=== PATIENT | female | born 1935 | race Caucasian/White ===

== ENCOUNTER 2019-12-10 11:40 | Inpatient (IN) | payer MEDICARE, OTHER ==
--- NOTE | 2019-12-10 12:24 | EDM.PDOC ---
ED HPI GENERAL MEDICAL PROBLEM - General Chief Complaint: Respiratory Problem Stated Complaint: SOB Time Seen by Provider: 12/10/19 12:06 Source of Information: Reports: Patient, RN Notes Reviewed History Limitations: Reports: No Limitations - History of Present Illness INITIAL COMMENTS - FREE TEXT/NARRATIVE: Patient is an 84-year-old female who presents to the ED for evaluation of her shortness of breath. At the time of initial triage, she was found to have O2 sats of 76% on 4 L of oxygen. She does wear oxygen at home, normally at 4 L. Triage nurse noted that her nailbeds were blue and, and she was having some slight dyspnea. She was then changed to a simple mask, and her O2 sats have been roughly 98 to 100% on 7 L, is been titrated down to 6 L on simple mask at this time and they are still in the mid to high 90s. Patient notes that this has been going on for the last 2 or 3 days, she thought maybe the change in humidity was the culprit. She states that she does have a history of pulmonary fibrosis. She does see a concrete rubber in [place]. She is also had recent stent placement, in September, and is to have a follow-up with her government affairs specialist sometime in December. Patient states that she has not been around anyone that is been sick or known to be sick. States that she has been trying to stay home, and not go out. Patient's not sure if she has ever been checked for COVID 19, she states that she has not had any fevers or chills, she has had no lingering cough that is worse than her normal. She is not having any chest pain. 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 (see below) Other Treatments CHIEF ORTHOPTIST: wears oxygen - Related Data Allergies Allergy/AdvReac Type Severity Reaction Status Date / Time No Known Allergies Allergy Verified 06/25/15 15:58 Home Meds: Home Meds Aspirin [Aspirin EC] 81 mg PO DAILY 12/10/19 [History] Calcium Carbonate [Calcium] 600 mg PO DAILY 12/10/19 [History] Clopidogrel Bisulfate [Plavix] 75 mg PO DAILY 12/10/19 [History] Hydrochloric Acid 25 mg PO DAILY 12/10/19 [History] Metoprolol Tartrate 25 mg PO BID 12/10/19 [History] atorvaSTATin Calcium [Lipitor] 20 mg PO BEDTIME 12/10/19 [History] Past Medical History HEENT History: Reports: Hard of Hearing, Impaired Vision, Other (See Below) Other HEENT History: Bilateral hearing aids Cardiovascular History: Reports: Hypertension, Stents Respiratory History: Reports: Pulmonary Fibrosis (on chronic supplemental home O2) 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: - Infectious Disease History Infectious Disease History: Reports: Chicken Pox, Measles, Mumps - Past Surgical History Cardiovascular Surgical History: Reports: Other (See Below) (stents placed in September) Musculoskeletal Surgical History: Reports: Knee Replacement Other Musculoskeletal Surgeries/Procedures:: bilat Social & Family History - Tobacco Use Smoking Status *Q: Never Smoker - Caffeine Use Caffeine Use: Reports: Coffee, Soda, Tea - Recreational Drug Use Recreational Drug Use: No ED ROS GENERAL - Review of Systems Review Of Systems: Comprehensive ROS is negative, except as noted in HPI. ED EXAM, GENERAL - Physical Exam Exam: See Below Exam Limited By: No Limitations General Appearance: Alert, WD/WN, No Apparent Distress (pt is extremely hard of hearing, even with hearing aides) Eye Exam: Bilateral Eye: EOMI, Normal Inspection Ears: Normal External Exam Nose: Normal Inspection Throat/Mouth: Normal Inspection, Normal Lips, Normal Teeth, Normal Gums, Normal Oropharynx, Normal Voice, No Airway Compromise Head: Atraumatic, Normocephalic Neck: Normal Inspection Respiratory/Chest: No Respiratory Distress, Chest Non-Tender, Decreased Breath Sounds (right lung field), Crackles (mostly on right) Cardiovascular: Normal Peripheral Pulses, Regular Rate, Rhythm, No Edema, No Murmur Peripheral Pulses: 2+: Radial (L), Radial (R) Extremities: Normal Inspection, Normal Capillary Refill Neurological: Alert, Oriented, Normal Cognition, No Motor/Sensory Deficits Psychiatric: Normal Affect, Normal Mood Skin Exam: Warm, Dry, Intact, Normal Color, No Rash Course - Vital Signs Last Recorded V/S: Last Vital Signs Temp 97.2 F 12/10/19 12:03 Pulse 72 12/10/19 12:03 Resp 25 H 12/10/19 12:03 BP 141/61 H 12/10/19 12:03 Pulse Ox 76 L 12/10/19 12:03 - Orders/Labs/Meds Orders: Active Orders 24 hr Category Date Time Status EKG Documentation Completion [RC] STAT Care 12/10/19 12:22 Active Peripheral IV Care [RC] . DIRECTED Care 12/10/19 13:10 Ordered Ang Chest [CT] Stat Exams 12/10/19 15:40 Ordered OSMOLALITY,SERUM [CHEM] Stat Lab 12/10/19 15:41 Ordered OSMOLALITY,URINE [URCHEM] Stat Lab 12/10/19 15:41 Ordered PROCALCITONIN [REF] Stat Lab 12/10/19 15:42 Ordered SODIUM,URINE RANDOM [URCHEM] Stat Lab 12/10/19 15:41 Ordered Sodium Chloride 0.9% [Saline Flush] Med 12/10/19 13:09 Ordered 10 ml FLUSH ASDIRECTED PRN Peripheral IV Insertion Adult [OM.PC] Routine Oth 12/10/19 13:09 Ordered Medication Orders Sodium Chloride (Saline Flush) 10 ml FLUSH ASDIRECTED PRN PRN Reason: Keep Vein Open Last Admin: 12/10/19 14:47 Dose: 10 ml Documented by: KIRA Labs: Laboratory Tests 12/10/19 12/10/19 12/10/19 Range/Units 12:18 12:18 12:18 WBC 10.04 (3.98-10.04) K/mm3 RBC 4.52 (3.98-5.22) M/mm3 Hgb 13.0 (11.2-15.7) gm/dl Hct 40.3 (34.1-44.9) % MCV 89.2 (79.4-94.8) fl MCH 28.8 (25.6-32.2) pg MCHC 32.3 (32.2-35.5) g/dl RDW Std Deviation 46.2 (36.4-46.3) fL Plt Count 319 D (182-369) K/mm3 MPV 9.3 L (9.4-12.3) fl Neut % (Auto) 75.3 H (34.0-71.1) % Lymph % (Auto) 11.1 L (19.3-51.7) % [place] % (Auto) 11.7 (4.7-12.5) % Eos % (Auto) 1.5 (0.7-5.8) Baso % (Auto) 0.2 (0.1-1.2) % Neut # (Auto) 7.57 H (1.56-6.13) K/mm3 Lymph # (Auto) 1.11 L (1.18-3.74) K/mm3 [place] # (Auto) 1.17 H (0.24-0.36) K/mm3 Eos # (Auto) 0.15 (0.04-0.36) K/mm3 Baso # (Auto) 0.02 (0.01-0.08) K/mm3 D-Dimer, Quantitative (0.19-0.50) mg/L Puncture Site ABG pH (7.35-7.45) ABG pCO2 (35.0-45.0) mmHg ABG pO2 (80.0-100.0) mmHg ABG HCO3 (22.0-26.0) meq/L ABG O2 Saturation (96.0-97.0) % ABG Base Excess (-2-2.0) Zur[place] Test A-a Gradient mmHg O2 Delivery Device Oxygen Flow Rate FiO2 (21.00-100.00) % Sodium 127 L D (136-145) mEq/L Potassium 3.6 (3.5-5.1) mEq/L Chloride 91 L (98-107) mEq/L Carbon Dioxide 32 (21-32) mEq/L Anion Gap 7.6 (5-15) BUN 15 (7-18) mg/dL Creatinine 0.9 (0.55-1.02) mg/dL Est Cr Clr Drug Dosing 38.49 mL/min Estimated GFR (MDRD) 60 (>60) mL/min BUN/Creatinine Ratio 16.7 (14-18) Glucose 140 H (83-115) mg/dL Calcium 8.9 (8.5-10.1) mg/dL Ferritin 505 H (8-252) ng/ml Total Bilirubin 0.8 (0.2-1.0) mg/dL AST 22 (15-37) U/L ALT 20 (14-59) U/L Alkaline Phosphatase 92 (46-116) U/L Lactate Dehydrogenase 338 H (81-234) U/L Troponin I (0.00-0.056) ng/mL C-Reactive Protein 6.2 H* (<1.0) mg/dL NT-Pro-B Natriuret Pep (0-450) pg/mL Total Protein 7.3 (6.4-8.2) g/dl Albumin 3.1 L (3.4-5.0) g/dl Globulin 4.2 gm/dL Albumin/Globulin Ratio 0.7 L (1-2) SARS Virus RNA (PCR) (NEGATIVE) 12/10/19 12/10/19 12/10/19 Range/Units 12:18 12:18 12:18 WBC (3.98-10.04) K/mm3 RBC (3.98-5.22) M/mm3 Hgb (11.2-15.7) gm/dl Hct (34.1-44.9) % MCV (79.4-94.8) fl MCH (25.6-32.2) pg MCHC (32.2-35.5) g/dl RDW Std Deviation (36.4-46.3) fL Plt Count (182-369) K/mm3 MPV (9.4-12.3) fl Neut % (Auto) (34.0-71.1) % Lymph % (Auto) (19.3-51.7) % [place] % (Auto) (4.7-12.5) % Eos % (Auto) (0.7-5.8) Baso % (Auto) (0.1-1.2) % Neut # (Auto) (1.56-6.13) K/mm3 Lymph # (Auto) (1.18-3.74) K/mm3 [place] # (Auto) (0.24-0.36) K/mm3 Eos # (Auto) (0.04-0.36) K/mm3 Baso # (Auto) (0.01-0.08) K/mm3 D-Dimer, Quantitative 0.49 (0.19-0.50) mg/L Puncture Site ABG pH (7.35-7.45) ABG pCO2 (35.0-45.0) mmHg ABG pO2 (80.0-100.0) mmHg ABG HCO3 (22.0-26.0) meq/L ABG O2 Saturation (96.0-97.0) % ABG Base Excess (-2-2.0) Zurdo Test A-a Gradient mmHg O2 Delivery Device Oxygen Flow Rate FiO2 (21.00-100.00) % Sodium (136-145) mEq/L Potassium (3.5-5.1) mEq/L Chloride (98-107) mEq/L Carbon Dioxide (21-32) mEq/L Anion Gap (5-15) BUN (7-18) mg/dL Creatinine (0.55-1.02) mg/dL Est Cr Clr Drug Dosing mL/min Estimated GFR (MDRD) (>60) mL/min BUN/Creatinine Ratio (14-18) Glucose (83-115) mg/dL Calcium (8.5-10.1) mg/dL Ferritin (8-252) ng/ml Total Bilirubin (0.2-1.0) mg/dL AST (15-37) U/L ALT (14-59) U/L Alkaline Phosphatase (46-116) U/L Lactate Dehydrogenase (81-234) U/L Troponin I 0.023 (0.00-0.056) ng/mL C-Reactive Protein (<1.0) mg/dL NT-Pro-B Natriuret Pep 3684 H (0-450) pg/mL Total Protein (6.4-8.2) g/dl Albumin (3.4-5.0) g/dl Globulin gm/dL Albumin/Globulin Ratio (1-2) SARS Virus RNA (PCR) (NEGATIVE) 12/10/19 12/10/19 Range/Units 12:25 13:30 WBC (3.98-10.04) K/mm3 RBC (3.98-5.22) M/mm3 Hgb (11.2-15.7) gm/dl Hct (34.1-44.9) % MCV (79.4-94.8) fl MCH (25.6-32.2) pg MCHC (32.2-35.5) g/dl RDW Std Deviation (36.4-46.3) fL Plt Count (182-369) K/mm3 MPV (9.4-12.3) fl Neut % (Auto) (34.0-71.1) % Lymph % (Auto) (19.3-51.7) % [place] % (Auto) (4.7-12.5) % Eos % (Auto) (0.7-5.8) Baso % (Auto) (0.1-1.2) % Neut # (Auto) (1.56-6.13) K/mm3 Lymph # (Auto) (1.18-3.74) K/mm3 [place] # (Auto) (0.24-0.36) K/mm3 Eos # (Auto) (0.04-0.36) K/mm3 Baso # (Auto) (0.01-0.08) K/mm3 D-Dimer, Quantitative (0.19-0.50) mg/L Puncture Site Rt radial ABG pH 7.44 (7.35-7.45) ABG pCO2 44.3 (35.0-45.0) mmHg ABG pO2 88.0 (80.0-100.0) mmHg ABG HCO3 29.4 H (22.0-26.0) meq/L ABG O2 Saturation 96.5 (96.0-97.0) % ABG Base Excess 4.9 H (-2-2.0) Zurdo Test Positive A-a Gradient 170 mmHg O2 Delivery Device Simple mask Oxygen Flow Rate 6.0 FiO2 44.00 (21.00-100.00) % Sodium (136-145) mEq/L Potassium (3.5-5.1) mEq/L Chloride (98-107) mEq/L Carbon Dioxide (21-32) mEq/L Anion Gap (5-15) BUN (7-18) mg/dL Creatinine (0.55-1.02) mg/dL Est Cr Clr Drug Dosing mL/min Estimated GFR (MDRD) (>60) mL/min BUN/Creatinine Ratio (14-18) Glucose (83-115) mg/dL Calcium (8.5-10.1) mg/dL Ferritin (8-252) ng/ml Total Bilirubin (0.2-1.0) mg/dL AST (15-37) U/L ALT (14-59) U/L Alkaline Phosphatase (46-116) U/L Lactate Dehydrogenase (81-234) U/L Troponin I (0.00-0.056) ng/mL C-Reactive Protein (<1.0) mg/dL NT-Pro-B Natriuret Pep (0-450) pg/mL Total Protein (6.4-8.2) g/dl Albumin (3.4-5.0) g/dl Globulin gm/dL Albumin/Globulin Ratio (1-2) SARS Virus RNA (PCR) Negative (NEGATIVE) Meds: Medications Generic Name Dose Route Start Last Admin Trade Name Khanh PRN Reason Stop Dose Admin Sodium Chloride 10 ml 12/10/19 13:09 12/10/19 14:47 Saline Flush FLUSH 10 ml ASDIRECTED PRN Administration Keep Vein Open - Re-Assessments/Exams Free Text/Narrative Re-Assessment/Exam: 12/10/19 12:26 Patient is an 84-year-old female who presents to the ED for her shortness of breath, and hypoxemia. She does chronically wear oxygen at home, and was found to have O2 sats of 76% on her 4 L of oxygen She was titrated to a simple mask, and she is at 6 L at this time, and satting around 98%. 12/10/19 13:08 Was made aware by nursing staff, that they ambulated the patient to the bathroom, and she had a severe drop in her O2 sats again. They noted to be low 80s high 70s. Patient does seem to recover well. Chest x-ray is suggestive of CHF with pulmonary edema, her labs demonstrate a low sodium of 127, ferritin of 505 which is elevated, elevated LDH at 338, patient's troponin is also detectable at 0.023, but within normal limits, CRP is elevated at 6.2. Still awaiting other labs. 12/10/19 13:34 Patient's coronavirus test was negative. D-dimer is on the high side of normal at 0.49, upper limits is 0.50. Her BNP is elevated at 3684, which would be suggestive of the CHF exacerbation. Patient does take hydrochlorothiazide 20 mg daily, metoprolol tartrate 25 mg twice daily, aspirin 81 mg daily, Plavix 75 mg daily, and atorvastatin 20 mg at bedtime. I will try to get her admitted for a CHF exacerbation at this time. Departure - Departure Time of Disposition: 15:44 Disposition: Admitted As Inpatient 66 Condition: Good Clinical Impression: Hypoxia Congestive heart failure Qualifiers: Heart failure type: unspecified Heart failure chronicity: acute on chronic Qualified Code(s): I50.9 - Heart failure, unspecified - Discharge Information *PRESCRIPTION DRUG MONITORING PROGRAM REVIEWED*: No *COPY OF PRESCRIPTION DRUG MONITORING REPORT IN PATIENT ANIL: No Referrals: Garth Vargas MD [Primary Care Provider] - Forms: ED Department Discharge Sepsis Event Note (ED) - Evaluation Sepsis Screening Result: No Definite Risk - Focused Exam Vital Signs: Vital Signs Temp Pulse Resp BP Pulse Ox 12/10/19 12:03 97.2 F 72 25 H 141/61 H 76 L - My Orders Last 24 Hours: My Active Orders 12/10/19 12:22 EKG Documentation Completion [RC] STAT 12/10/19 13:09 Sodium Chloride 0.9% [Saline Flush] 10 ml FLUSH ASDIRECTED PRN Peripheral IV Insertion Adult [OM.PC] Routine 12/10/19 13:10 Peripheral IV Care [RC] . DIRECTED 12/10/19 15:40 Ang Chest [CT] Stat 12/10/19 15:41 OSMOLALITY,SERUM [CHEM] Stat OSMOLALITY,URINE [URCHEM] Stat SODIUM,URINE RANDOM [URCHEM] Stat 12/10/19 15:42 PROCALCITONIN [REF] Stat - Assessment/Plan Last 24 Hours: My Active Orders 12/10/19 12:22 EKG Documentation Completion [RC] STAT 12/10/19 13:09 Sodium Chloride 0.9% [Saline Flush] 10 ml FLUSH ASDIRECTED PRN Peripheral IV Insertion Adult [OM.PC] Routine 12/10/19 13:10 Peripheral IV Care [RC] . DIRECTED 12/10/19 15:40 Ang Chest [CT] Stat 12/10/19 15:41 OSMOLALITY,SERUM [CHEM] Stat OSMOLALITY,URINE [URCHEM] Stat SODIUM,URINE RANDOM [URCHEM] Stat 12/10/19 15:42 PROCALCITONIN [REF] Stat
--- NOTE | 2019-12-10 12:48 | CR ---
Chest: Portable view of the chest was obtained. Comparison: Prior chest x-ray on 06/25/15. Diffuse increased density is seen on both sides of the chest. Findings raise the possibility of pulmonary edema. Heart is somewhat enlarged. Tortuous thoracic aorta is noted. Scoliosis and degenerative change is noted within the spine. Impression: 1. Findings suspicious for CHF with pulmonary edema. Please correlate if this matches patient's clinical symptoms/findings. Diagnostic code #3 This report was dictated in MDT
[2019-12-10] MEDS: Sodium Chloride 0.9% 10 ML Syringe FLUSH PRN (14:47)
[2019-12-10] MEDS ORDERED: Iopamidol 755 Mg/ML 100 ML Bottle IVPUSH ONE (15:49)
[2019-12-10] MEDS ORDERED: Sodium Chloride 0.9% 10 ML Syringe FLUSH ONE (15:49)
[2019-12-10] MEDS ORDERED: Sodium Chloride 0.9% 100 ML IV SCH (16:00)
--- NOTE | 2019-12-10 16:40 | CT ---
CT chest Technique: Multiple axial sections through the chest were obtained. Intravenous contrast was utilized. Study performed as a pulmonary angiogram protocol. Findings: Pulmonary arteries are well opacified. No filling defects are seen to indicate pulmonary embolism. Aorta shows atherosclerotic calcification without aneurysm. No dissection is seen. Multiple lymph nodes are seen within the mediastinum which are more than usually seen. No pericardial thickening is seen. Visualized upper abdominal structures shows no discrete abnormality. Diffuse interstitial change is seen having the appearance of diffuse fibrosis. Emphysematous changes are also noted. Impression: 1. Diffuse appearing interstitial change with emphysematous change. Uncertain if the interstitial change represent diffuse fibrosis or represent asymmetric pulmonary vascular congestion from CHF superimposed upon emphysematous change. 2. Lymph nodes within the mediastinum possibly due to previous inflammatory process. 3. No findings of pulmonary embolism. Diagnostic code #3 This report was dictated in MDT
[2019-12-10] MEDS ORDERED: Ondansetron 4 MG/2 ML SDV IV PRN (18:18)
[2019-12-10] MEDS ORDERED: Furosemide 20 MG/2 ML VIAL IVPUSH ONE (18:22)
--- NOTE | 2019-12-10 18:28 | PCM.HP.2 ---
H&P History of Present Illness - General Date of Service: 12/10/19 Admit Problem/Dx: Admission Diagnosis/Problem Admission Diagnosis/Problem Congestive heart failure - History of Present Illness Initial Comments - Free Text/Narative: This is an 84 year old female with past medical history of pulmonary fibrosis an d chronic hypoxemic respiratory failure who comes to the ED complaining of worsening shortness of breath for a couple of days. As per patient she has been on oxygen for over a year, normally at home her pulse ox ranges from 74 -94% and she normally is on 4LPM NC, this was changed 2.5 weeks, before on 2.5L. Once she noticed her symptoms were not improving and her legs were getting more and more swollen for which she came in for evaluation. - Related Data Allergies/Adverse Reactions: Allergies Allergy/AdvReac Type Severity Reaction Status Date / Time No Known Allergies Allergy Verified 06/25/15 15:58 Home Medications: Home Meds Aspirin [Aspirin EC] 81 mg PO DAILY 12/10/19 [History] Calcium Carbonate [Calcium] 600 mg PO DAILY 12/10/19 [History] Clopidogrel Bisulfate [Plavix] 75 mg PO DAILY 12/10/19 [History] Metoprolol Tartrate 12.5 mg PO BID 12/10/19 [History] Multivitamin [Multivitamins] 1 tab PO DAILY 12/10/19 [History] atorvaSTATin Calcium [Lipitor] 20 mg PO BEDTIME 12/10/19 [History] hydroCHLOROthiazide [Hydrochlorothiazide] 25 mg PO DAILY 12/10/19 [History] Past Medical History HEENT History: Reports: Hard of Hearing, Impaired Vision, Other (See Below) Other HEENT History: Bilateral hearing aids Cardiovascular History: Reports: Hypertension, Stents Respiratory History: Reports: Pulmonary Fibrosis Genitourinary History: Reports: UTI, 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: - Infectious Disease History Infectious Disease History: Reports: Chicken Pox, Measles, Mumps - Past Surgical History HEENT Surgical History: Reports: None Cardiovascular Surgical History: Reports: Carotid Stents Other Cardiovascular Surgeries/Procedures: 2 stents Female Surgical History: Reports: None Musculoskeletal Surgical History: Reports: Knee Replacement Other Musculoskeletal Surgeries/Procedures:: bilat Social & Family History - Tobacco Use Smoking Status *Q: Never Smoker - Caffeine Use Caffeine Use: Reports: Coffee, Soda - Recreational Drug Use Recreational Drug Use: No H&P Review of Systems - Review of Systems: Review Of Systems: See Below General: Reports: Fatigue. Denies: Fever, Chills, Malaise, Weakness, Night Sweats, Diaphoresis, Decreased Appetite HEENT: Denies: Headaches, Rhinitis, Post Nasal Drip, Sinus Congestion, Sore Throat, Vertigo, Visual Changes Pulmonary: Reports: Shortness of Breath. Denies: Wheezing, Pleuritic Chest Pain, Cough, Sputum, Hemoptysis Cardiovascular: Reports: Dyspnea on Exertion, Edema. Denies: Chest Pain, Palpitations, Orthopnea, PND, Lightheadedness, Syncope, Claudication, Blood Pressure Problem Gastrointestinal: Denies: Abdominal Pain, Anorexia, Black Stool, Bloody Stool, Constipation, Diarrhea, Decreased Appetite, Difficulty Swallowing, Distension, Flatus, Nausea, Vomiting Genitourinary: Denies: Dysuria, Frequency, Burning, Pain, Urgency Musculoskeletal: Denies: Joint Pain, Joint Swelling, Muscle Pain, Muscle Stiffness Psychiatric: Denies: Confusion, Depression, Mood Lability, Anxiety Neurological: Denies: Dizziness, Headache, Numbness, Paresthesia Exam - Exam Exam: See Below - Vital Signs Vital Signs: Last Vital Signs Temp 97.2 F 12/10/19 12:03 Pulse 72 12/10/19 12:03 Resp 25 H 12/10/19 12:03 BP 141/61 H 12/10/19 12:03 Pulse Ox 76 L 12/10/19 12:03 Weight: 69.173 kg - Exam General: Alert, Oriented, Cooperative, Mild Distress HEENT: Conjunctiva Clear, EACs Clear, Mucosa Moist & [place], Pupils Equal, Pupils Reactive Neck: Supple, Trachea Midline, Full Range of Motion, JVD. No: Lymphadenopathy, Carotid Bruit Lungs: Clear to Auscultation, Decreased Breath Sounds, Crackles, Wheezing. No: Normal Respiratory Effort, Rales, Rhonchi, Rub, Stridor Cardiovascular: Regular Rate, Regular Rhythm. No: Systolic Murmur, Diastolic Murmur, Rubs, Gallop/S3, Gallop/S4 GI/Abdominal Exam: Normal Bowel Sounds, Soft, Non-Tender. No: Distended, Guarding, Rigid, Rebound Back Exam: Normal Inspection, Full Range of Motion. No: CVA Tenderness (L), CVA Tenderness (R) Extremities: Normal Inspection, Normal Range of Motion, Pedal Edema Peripheral Pulses: 2+: Radial (L), Radial (R), Dorsalis Pedis (L), Dorsalis Pedis (R) - Patient Data Result Diagrams: 12/13/19 05:51 12/13/19 05:51 Sepsis Event Note - Evaluation Sepsis Screening Result: No Definite Risk - Problem List (1) Idiopathic pulmonary fibrosis Status: Acute Current Visit: Yes (2) Acute on chronic respiratory failure with hypoxemia SNOMED Code(s): 52822041345389833 ICD Code: J96.21 - ACUTE AND CHRONIC RESPIRATORY FAILURE WITH HYPOXIA Status: Acute Current Visit: Yes (3) Hypertension SNOMED Code(s): 05367778 ICD Code: I10 - ESSENTIAL (PRIMARY) HYPERTENSION Status: Acute Current Visit: Yes (4) Coronary artery disease SNOMED Code(s): 83352870 ICD Code: I25.10 - ATHSCL HEART DISEASE OF [place] CORONARY ARTERY W/O ANG PCTRS Status: Acute Current Visit: Yes (5) Stented coronary artery Status: Acute Current Visit: Yes (6) Hyponatremia SNOMED Code(s): 66191159 ICD Code: E87.1 - HYPO-OSMOLALITY AND HYPONATREMIA Status: Acute Current Visit: Yes (7) Hypokalemia SNOMED Code(s): 54812238 ICD Code: E87.6 - HYPOKALEMIA Status: Acute Current Visit: Yes (8) Hypoalbuminemia SNOMED Code(s): 187831161 ICD Code: E88.09 - OTH DISORDERS OF PLASMA-PROTEIN METABOLISM, NEC Status: Acute Current Visit: Yes (9) Compensated metabolic alkalosis SNOMED Code(s): 2522705 ICD Code: E87.3 - ALKALOSIS Status: Acute Current Visit: Yes (10) Tachypnea SNOMED Code(s): 958526764 ICD Code: R06.82 - TACHYPNEA, NOT ELSEWHERE CLASSIFIED Status: Acute Current Visit: Yes (11) Heart failure, type unknown SNOMED Code(s): 34283438 ICD Code: I50.9 - HEART FAILURE, UNSPECIFIED Status: Acute Current Visit: Yes (12) Acute heart failure SNOMED Code(s): 26951444 ICD Code: I50.9 - HEART FAILURE, UNSPECIFIED Status: Acute Current Visit: Yes Problem List Initiated/Reviewed/Updated: Yes Assessment/Plan Comment:: ASSESSMENT Came in for worsening shortness of breath and lower extremity edema Chronic O2 dependence at 4 L, recently changed the past 3 weeks Pulse ox on admission 76%--> increased to 6L Labs on admission WBC 10.04, no bands Chemistry: Sodium 127, potassium 3.6, chloride 91, CO2 32, GFR 60 Ferritin 505, LDH 338, d-dimer 0.49, proBNP 3684 ABGs: 7.44/44.3/88/29.4/96.5 Chest x-ray with diffuse increased density on both sides of the chest with concerns for pulmonary edema, enlarged heart VS on admission: BP 141/61(87), HR 72, RR 25, SatO2 76% on 4LPM Home BP management with thiazide, likely causing hyponatremia PLAN Acute on chronic respiratory failure with hypoxemia, multifactorial Acute on chronic ischemic heart failure Coronary artery disease s/p stenting x 2 on 09/2019 Idiopathic pulmonary fibrosis Compensated metabolic alkalosis CTA chest to r/o pulmonary embolus Lasix IV now Daily weights Fluid restriction Hypertension Continue home medications once available PRN Hydralazine Hyponatremia Hypokalemia Hold thiazide Replace KCl Hypoalbuminemia Prealbumin Dietary consult PROPHYLAXIS DVT-Lovenox GI- not indicated CODE STATUS: DNR/DNI DISPOSITION: Patient will be admitted on O2 supplementation, diuresis and monitorization. SOCIAL: Comes from home, here in [place] with Independent at home PCP is Dr. Vargas - Mortality Measure Prognosis:: Poor
[2019-12-11] MEDS ORDERED: Furosemide 20 MG/2 ML VIAL IVPUSH ONE (09:09)
--- NOTE | 2019-12-11 21:24 | PCM.PN ---
- General Info Date of Service: 12/11/19 Subjective Update: Overnight developed worsening hypoxemia required O2 flow increase to 10LPM NC - Patient Data Vitals - Most Recent: Last Vital Signs Temp 98.3 F 12/11/19 20:00 Pulse 113 H 12/11/19 20:45 Resp 18 12/11/19 16:00 BP 109/68 12/11/19 20:45 Pulse Ox 95 12/11/19 20:45 Weight - Most Recent: 67.948 kg - Exam General: Alert, Oriented, Cooperative, Moderate Distress HEENT: Pupils Equal, Pupils Reactive, EOMI, Mucous Membr. Moist/[place] Neck: Supple, Trachea Midline, +2 Carotid Pulse wo Bruit, JVD Lungs: Normal Respiratory Effort, Decreased Breath Sounds, Crackles. No: Rales, Rhonchi, Rub, Stridor, Wheezing Cardiovascular: Regular Rate, Regular Rhythm. No: Murmurs, Gallops, Rubs GI/Abdominal Exam: Normal Bowel Sounds, Soft, Non-Tender. No: Distended, Guarding, Rigid, Rebound Back Exam: Normal Inspection. No: CVA Tenderness (L), CVA Tenderness (R) Extremities: Normal Inspection, Pedal Edema (interval improvement), Slow Capillary Refill Peripheral Pulses: 2+: Radial (L), Radial (R), Dorsalis Pedis (L), Dorsalis Pedis (R) Skin: Warm, Dry Neurological: No New Focal Deficit Psy/Mental Status: Normal Affect, Normal Mood Sepsis Event Note - Evaluation Sepsis Screening Result: No Definite Risk - Problem List & Annotations (1) Leukocytosis SNOMED Code(s): 056608170, 948962407 Code(s): D72.829 - ELEVATED WHITE BLOOD CELL COUNT, UNSPECIFIED Status: Acute Current Visit: Yes (2) Hypomagnesemia SNOMED Code(s): 832114826 Code(s): E83.42 - HYPOMAGNESEMIA Status: Acute Current Visit: Yes (3) Acute heart failure SNOMED Code(s): 76335684 Code(s): I50.9 - HEART FAILURE, UNSPECIFIED Status: Acute Current Visit: Yes (4) Acute on chronic respiratory failure with hypoxemia SNOMED Code(s): 87863774625985131 Code(s): J96.21 - ACUTE AND CHRONIC RESPIRATORY FAILURE WITH HYPOXIA Status: Acute Current Visit: Yes (5) Compensated metabolic alkalosis SNOMED Code(s): 4169137 Code(s): E87.3 - ALKALOSIS Status: Acute Current Visit: Yes (6) Coronary artery disease SNOMED Code(s): 88595712 Code(s): I25.10 - ATHSCL HEART DISEASE OF [place] CORONARY ARTERY W/O ANG PCTRS Status: Acute Current Visit: Yes (7) Heart failure, type unknown SNOMED Code(s): 03329541 Code(s): I50.9 - HEART FAILURE, UNSPECIFIED Status: Acute Current Visit: Yes (8) Hypertension SNOMED Code(s): 94619048 Code(s): I10 - ESSENTIAL (PRIMARY) HYPERTENSION Status: Acute Current Visit: Yes (9) Hypoalbuminemia SNOMED Code(s): 914124946 Code(s): E88.09 - OTH DISORDERS OF PLASMA-PROTEIN METABOLISM, NEC Status: Acute Current Visit: Yes (10) Hypokalemia SNOMED Code(s): 17367116 Code(s): E87.6 - HYPOKALEMIA Status: Acute Current Visit: Yes (11) Hyponatremia SNOMED Code(s): 57890181 Code(s): E87.1 - HYPO-OSMOLALITY AND HYPONATREMIA Status: Acute Current Visit: Yes (12) Idiopathic pulmonary fibrosis Status: Acute Current Visit: Yes (13) Stented coronary artery Status: Acute Current Visit: Yes (14) Tachypnea SNOMED Code(s): 856180932 Code(s): R06.82 - TACHYPNEA, NOT ELSEWHERE CLASSIFIED Status: Acute Cur rent Visit: Yes - Problem List Review Problem List Initiated/Reviewed/Updated: Yes - Assessment Assessment:: 12/11/19 Came in for worsening shortness of breath and lower extremity edema Chronic O2 dependence at 4 L, recently changed the past 3 weeks Pulse ox on admission 76%--> increased to 6L Labs on admission WBC 10.04, no bands Chemistry: Sodium 127, potassium 3.6, chloride 91, CO2 32, GFR 60 Ferritin 505, LDH 338, d-dimer 0.49, proBNP 3684 ABGs: 7.44/44.3/88/29.4/96.5 Chest x-ray with diffuse increased density on both sides of the chest with concerns for pulmonary edema, enlarged heart VS on admission: BP 141/61(87), HR 72, RR 25, SatO2 76% on 4LPM Home BP management with thiazide, likely causing hyponatremia PLAN CTA chest to r/o pulmonary embolus--> negative for PE Lasix IV now Daily weights Fluid restriction PRN Hydralazine Prealbumin Dietary consult Patient will be admitted on O2 supplementation, diuresis and monitorization. 12/11/19 Worsened respiratory status overnight: Started 4 L/min and dropped to 76% around 7 in the morning increased to 6 and later 10 L/min obtaining a pulse ox of 87% Vital signs MAP: 7590 T-max 97.8 Heart rate 91 210 Pulse ox greater than 76 Intake and output Urine output 1, 550 24-hour balance -1, 250 Lab results WBC up from 10.04-11.99 Platelets down from 219-299 Sodium up from 127 230 Potassium down from 3.6-3.3 Chloride stable at 91 Magnesium 1.7 - Plan Plan:: Acute on chronic respiratory failure with hypoxemia, multifactorial Acute on chronic ischemic heart failure Coronary artery disease s/p stenting x 2 on 09/2019 Idiopathic pulmonary fibrosis Compensated metabolic alkalosis Transfer to ICU Replace on BiPAP ABGs in 1 hour Daily weights Fluid restriction Hypertension Continue home medications PRN Hydralazine Hyponatremia Hypokalemia Hypomagnesemia Increase dietary salt Replace KCl and magnesium Hypoalbuminemia Prealbumin Dietary consult PROPHYLAXIS DVT-Lovenox GI- not indicated CODE STATUS: DNR/DNI DISPOSITION: Patient will be transferred to ICU with BIPAP for closer monitorization.
[2019-12-11] MEDS: Metoprolol Tartrate 25 MG Tab PO SCH (23:09)
[2019-12-12] MEDS: Aspirin 81 MG Tab.EC PO SCH (08:02)
[2019-12-12] MEDS: Clopidogrel 75 MG Tab PO SCH (08:02)
[2019-12-12] MEDS: Sodium Chloride 0.9% 1,000 ML IV SCH (08:08)
[2019-12-12] MEDS: Sodium Chloride/Potassium Chloride Tab PO SCH ×3 (08:08→20:26)
[2019-12-12] MEDS: Metoprolol Tartrate 25 MG Tab PO SCH ×3 (08:10→20:26)
[2019-12-12] MEDS ORDERED: Dexamethasone 4 MG/ML 5 ML MDV IV SCH (10:00)
--- NOTE | 2019-12-12 10:40 | CT ---
CT chest Technique: Multiple axial sections were obtained from above the lung apices inferiorly to the lung bases. Intravenous contrast was not utilized. Comparison: Prior chest CT study of 12/10/19. Findings: Visualized upper abdominal structures shows nothing acute. Heart shows no pericardial effusion. Coronary artery stent appears to be present. Aorta shows atherosclerotic calcification without aneurysm. Mildly prominent lymph nodes within the mediastinum which are stable. There is debris being seen within the esophagus either due to poor motility or gastroesophageal reflux. Diffuse interstitial changes are seen superimposed upon emphysematous change. Findings remain stable from previous study. No new parenchymal abnormality is appreciated. Bone window settings were reviewed which shows stable degenerative change scattered throughout the spine. Impression: 1. Diffuse interstitial change which remains stable from prior study which is superimposed upon emphysematous change. Differential as previously described. 2. Mildly prominent mediastinal lymph nodes which are similar to prior chest CT. 3. Other findings as noted which are likely nonacute. Diagnostic code #3 Study was dictated in MDT
--- NOTE | 2019-12-12 18:52 | PCM.PN ---
- General Info Date of Service: 12/12/19 Subjective Update: Pulse oximetry dropped overnight and required increase in FiO2 from 50 to 90 Pulse ox drops when she eats Patient states overall she feels the same - Patient Data Vitals - Most Recent: Last Vital Signs Temp 98.0 F 12/12/19 16:00 Pulse 96 12/12/19 08:10 Resp 16 12/12/19 16:00 BP 118/71 12/12/19 16:00 Pulse Ox 91 L 12/12/19 16:00 Weight - Most Recent: 67.132 kg - Exam General: Alert, Oriented, Cooperative, Mild Distress, Moderate Distress HEENT: Pupils Equal, Pupils Reactive, EOMI, Mucous Membr. Moist/[place] Neck: Supple, Trachea Midline, No JVD, +2 Carotid Pulse wo Bruit. No: Lymphadenopathy Lungs: Decreased Breath Sounds, Crackles, Wheezing. No: Normal Respiratory Effort, Rales, Rhonchi, Rub, Stridor Cardiovascular: Regular Rate, Regular Rhythm. No: Murmurs, Gallops, Rubs GI/Abdominal Exam: Normal Bowel Sounds, Soft, Non-Tender. No: Distended, Guarding, Rigid, Rebound Back Exam: Normal Inspection. No: CVA Tenderness (L), CVA Tenderness (R), Paraspinal Tenderness, Vertebral Tenderness Extremities: Normal Inspection, Non-Tender, Pedal Edema (interval improvement), Slow Capillary Refill Peripheral Pulses: 2+: Radial (L), Radial (R), Dorsalis Pedis (L), Dorsalis Pedis (R) Skin: Warm, Dry Neurological: No New Focal Deficit Psy/Mental Status: Normal Affect, Normal Mood Sepsis Event Note - Evaluation Sepsis Screening Result: No Definite Risk - Problem List & Annotations (1) Acute heart failure SNOMED Code(s): 04894245 Code(s): I50.9 - HEART FAILURE, UNSPECIFIED Status: Acute Current Visit: Yes (2) Acute on chronic respiratory failure with hypoxemia SNOMED Code(s): 73577795085662111 Code(s): J96.21 - ACUTE AND CHRONIC RESPIRATORY FAILURE WITH HYPOXIA Status: Acute Current Visit: Yes (3) Compensated metabolic alkalosis SNOMED Code(s): 8852377 Code(s): E87.3 - [place]KALOSIS Status: Acute Current Visit: Yes (4) Coronary artery disease SNOMED Code(s): 27278324 Code(s): I25.10 - ATHSCL HEART DISEASE OF [place] CORONARY ARTERY W/O ANG PCTRS Status: Acute Current Visit: Yes (5) Heart failure, type unknown SNOMED Code(s): 03708406 Code(s): I50.9 - HEART FAILURE, UNSPECIFIED Status: Acute Current Visit: Yes (6) Hypertension SNOMED Code(s): 47039220 Code(s): I10 - ESSENTIAL (PRIMARY) HYPERTENSION Status: Acute Current Visit: Yes (7) Hypoalbuminemia SNOMED Code(s): 724774722 Code(s): E88.09 - OTH DISORDERS OF PLASMA-PROTEIN METABOLISM, NEC Status: Acute Current Visit: Yes (8) Hypokalemia SNOMED Code(s): 88153754 Code(s): E87.6 - HYPOKALEMIA Status: Acute Current Visit: Yes (9) Hypomagnesemia SNOMED Code(s): 383537337 Code(s): E83.42 - HYPOMAGNESEMIA Status: Acute Current Visit: Yes (10) Hyponatremia SNOMED Code(s): 09820208 Code(s): E87.1 - HYPO-OSMOLALITY AND HYPONATREMIA Status: Acute Current Visit: Yes (11) Idiopathic pulmonary fibrosis Status: Acute Current Visit: Yes (12) Leukocytosis SNOMED Code(s): 851392854, 833068504 Code(s): D72.829 - ELEVATED WHITE BLOOD CELL COUNT, UNSPECIFIED Status: Acute Current Visit: Yes (13) Stented coronary artery Status: Acute Current Visit: Yes (14) Tachypnea SNOMED Code(s): 818048545 Code(s): R06.82 - TACHYPNEA, NOT ELSEWHERE CLASSIFIED Status: Acute Current Visit: Yes (15) Congestive heart failure SNOMED Code(s): 80973349 Code(s): I50.9 - HEART FAILURE, UNSPECIFIED Status: Acute Current Visit: No Qualifiers: Heart failure type: unspecified Heart failure chronicity: acute on chronic Qualified Code(s): I50.9 - Heart failure, unspecified - Problem List Review Problem List Initiated/Reviewed/Updated: Yes - Assessment Assessment:: 12/11/19 Came in for worsening shortness of breath and lower extremity edema Chronic O2 dependence at 4 L, recently changed the past 3 weeks Pulse ox on admission 76%--> increased to 6L Labs on admission WBC 10.04, no bands Chemistry: Sodium 127, potassium 3.6, chloride 91, CO2 32, GFR 60 Ferritin 505, LDH 338, d-dimer 0.49, proBNP 3684 ABGs: 7.44/44.3/88/29.4/96.5 Chest x-ray with diffuse increased density on both sides of the chest with concerns for pulmonary edema, enlarged heart VS on admission: BP 141/61(87), HR 72, RR 25, SatO2 76% on 4LPM Home BP management with thiazide, likely causing hyponatremia PLAN CTA chest to r/o pulmonary embolus--> negative for PE Lasix IV now Daily weights Fluid restriction PRN Hydralazine Prealbumin Dietary consult Patient will be admitted on O2 supplementation, diuresis and monitorization. 12/11/19 Worsened respiratory status overnight: Started 4 L/min and dropped to 76% around 7 in the morning increased to 6 and later 10 L/min obtaining a pulse ox of 87% Vital signs MAP: 7590 T-max 97.8 Heart rate 91-110 Pulse ox greater than 76 Intake and output Urine output 1, 550 24-hour balance -1, 250 Lab results WBC up from 10.04-11.99 Platelets down from 219-299 Sodium up from 127 230 Potassium down from 3.6-3.3 Chloride stable at 91 Magnesium 1.7 PLAN Transfer to ICU Replace on BiPAP ABGs in 1 hour Daily weights Fluid restriction Increase dietary salt Replace KCl and magnesium Transferred to ICU 12/12/19 Vital signs BP: 102-135/58-79 T-max 98.3 Heart rate 84-130 Pulse ox >71% Intake and output Urine output 2,525 24-hour balance -2,450 Lab results WBC stable at 11.99-11.53 D-dimer up from 0.49-1 Sodium down from 130-129 Potassium down from 3.3-3.1 Chloride up from 91-92 CO2 up from 30-33 Phosphorus down from 3.2-2.6 Mg from 1.7-1.8 CRP up from 6.2-20.2 proBNP up from 3,684-3,842 Ferritin up from 505-609 LDH down from 338-293 - Plan Plan:: Acute on chronic respiratory failure with hypoxemia, multifactorial Acute on chronic ischemic heart failure Coronary artery disease s/p stenting x 2 on 09/2019 Idiopathic pulmonary fibrosis Compensated metabolic alkalosis Repeat COVID test Repeat CT chest Daily weights Fluid restriction Continue O2 supplementation via BiPAP Start Dexamethasone 6mg IV QD x 10 days Procalcitonin today and q48h Hypertension, controlled Continue home medications PRN Hydralazine Hyponatremia, worse Hypokalemia, worse Hypomagnesemia, worse Hypophosphatemia Increase dietary salt Replace PO4, KCl and magnesium Hypoalbuminemia Prealbumin Dietary consult PROPHYLAXIS DVT-Lovenox GI- not indicated CODE STATUS: DNR/DNI DISPOSITION: Patient will remain in ICU on BiPAP for O2 supplementation, labs highly suggestive of COVID or worsening pneumonia, will repeat test today.
[2019-12-13] MEDS: Sodium Chloride 0.9% 1,000 ML IV SCH (04:00)
[2019-12-13] MEDS: Aspirin 81 MG Tab.EC PO SCH (08:56)
[2019-12-13] MEDS: Clopidogrel 75 MG Tab PO SCH (08:56)
[2019-12-13] MEDS: Metoprolol Tartrate 25 MG Tab PO SCH ×2 (08:56→20:53)
[2019-12-13] MEDS: Sodium Chloride/Potassium Chloride Tab PO SCH ×3 (08:56→20:53)
[2019-12-13] MEDS ORDERED: Dexamethasone 10 MG/ML SDV IV SCH (09:00)
--- NOTE | 2019-12-13 19:37 | PCM.PN ---
- General Info Date of Service: 12/13/19 Subjective Update: BM yesterday Had a difficult night Does feel a little worse than yesterday - Patient Data Vitals - Most Recent: Last Vital Signs Temp 97.5 F 12/13/19 15:40 Pulse 80 12/13/19 15:40 Resp 22 H 12/13/19 15:40 BP 138/77 12/13/19 15:40 Pulse Ox 93 L 12/13/19 15:40 Weight - Most Recent: 67.132 kg - Exam Quality Assessment: Supplemental Oxygen General: Alert, Oriented, Cooperative, Moderate Distress HEENT: Pupils Equal, Pupils Reactive, EOMI, Mucous Membr. Moist/[place] Neck: Supple, Trachea Midline. No: Lymphadenopathy Lungs: Decreased Breath Sounds, Crackles. No: Clear to Auscultation, Normal Respiratory Effort, Rales, Rhonchi, Rub, Stridor, Wheezing Cardiovascular: Regular Rate, Regular Rhythm. No: Murmurs, Gallops, Rubs GI/Abdominal Exam: Normal Bowel Sounds, Soft, Non-Tender. No: Distended, Guarding, Rigid, Rebound Back Exam: Normal Inspection. No: CVA Tenderness (L), CVA Tenderness (R), Paraspinal Tenderness, Vertebral Tenderness Extremities: Normal Inspection, Non-Tender, Normal Capillary Refill, Pedal Edema (almost resolved) Peripheral Pulses: 2+: Radial (L), Radial (R), Dorsalis Pedis (L), Dorsalis Pedis (R) Skin: Warm, Dry, Intact Neurological: No New Focal Deficit Psy/Mental Status: Normal Affect, Normal Mood Sepsis Event Note - Evaluation Sepsis Screening Result: No Definite Risk - Problem List & Annotations (1) Acute heart failure SNOMED Code(s): 10712868 Code(s): I50.9 - HEART FAILURE, UNSPECIFIED Status: Acute Current Visit: Yes (2) Acute on chronic respiratory failure with hypoxemia SNOMED Code(s): 50388103705767962 Code(s): J96.21 - ACUTE AND CHRONIC RESPIRATORY FAILURE WITH HYPOXIA Status: Acute Current Visit: Yes (3) Compensated metabolic alkalosis SNOMED Code(s): 0842408 Code(s): E87.3 - [place] Status: Acute Current Visit: Yes (4) Coronary artery disease SNOMED Code(s): 72691674 Code(s): I25.10 - ATHSCL HEART DISEASE OF [place] CORONARY ARTERY W/O ANG PCTRS Status: Acute Current Visit: Yes (5) Heart failure, type unknown SNOMED Code(s): 89220305 Code(s): I50.9 - HEART FAILURE, UNSPECIFIED Status: Acute Current Visit: Yes (6) Hypertension SNOMED Code(s): 12105123 Code(s): I10 - ESSENTIAL (PRIMARY) HYPERTENSION Status: Acute Current Visit: Yes (7) Hypoalbuminemia SNOMED Code(s): 335831958 Code(s): E88.09 - [facility] DISORDERS OF PLASMA-PROTEIN METABOLISM, NEC Status: Acute Current Visit: Yes (8) Hypokalemia SNOMED Code(s): 35270414 Code(s): E87.6 - HYPOKALEMIA Status: Acute Current Visit: Yes (9) Hypomagnesemia SNOMED Code(s): 399357675 Code(s): E83.42 - HYPOMAGNESEMIA Status: Acute Current Visit: Yes (10) Hyponatremia SNOMED Code(s): 27604908 Code(s): E87.1 - HYPO-OSMOLALITY AND HYPONATREMIA Status: Acute Current Visit: Yes (11) Idiopathic pulmonary fibrosis Status: Acute Current Visit: Yes (12) Leukocytosis SNOMED Code(s): 948919797, 906591013 Code(s): D72.829 - ELEVATED WHITE BLOOD CELL COUNT, UNSPECIFIED Status: Acute Current Visit: Yes (13) Stented coronary artery Status: Acute Current Visit: Yes (14) Tachypnea SNOMED Code(s): 232268621 Code(s): R06.82 - [place], NOT ELSEWHERE CLASSIFIED Status: Acute Current Visit: Yes (15) Congestive heart failure SNOMED Code(s): 34993699 Code(s): I50.9 - HEART FAILURE, UNSPECIFIED Status: Acute Current Visit: No Qualifiers: Heart failure type: unspecified Heart failure chronicity: acute on chronic Qualified Code(s): I50.9 - Heart failure, unspecified (16) Grade II diastolic dysfunction SNOMED Code(s): 8058420 Code(s): I51.9 - HEART DISEASE, UNSPECIFIED Status: Acute Current Visit: Yes - Problem List Review Problem List Initiated/Reviewed/Updated: Yes - Assessment Assessment:: 12/11/19 Came in for worsening shortness of breath and lower extremity edema Chronic O2 dependence at 4 L, recently changed the past 3 weeks Pulse ox on admission 76%--> increased to 6L Labs on admission WBC 10.04, no bands Chemistry: Sodium 127, potassium 3.6, chloride 91, CO2 32, GFR 60 Ferritin 505, LDH 338, d-dimer 0.49, proBNP 3684 ABGs: 7.44/44.3/88/29.4/96.5 Chest x-ray with diffuse increased density on both sides of the chest with concerns for pulmonary edema, enlarged heart VS on admission: BP 141/61(87), HR 72, RR 25, SatO2 76% on 4LPM Home BP management with thiazide, likely causing hyponatremia PLAN CTA chest to r/o pulmonary embolus--> negative for PE Lasix IV now Daily weights Fluid restriction PRN Hydralazine Prealbumin Dietary consult Patient will be admitted on O2 supplementation, diuresis and monitorization. 12/11/19 Worsened respiratory status overnight: Started 4 L/min and dropped to 76% around 7 in the morning increased to 6 and later 10 L/min obtaining a pulse ox of 87% Vital signs MAP: 7590 T-max 97.8 Heart rate 91-110 Pulse ox greater than 76 Intake and output Urine output 1, 550 24-hour balance -1, 250 Lab results WBC up from 10.04-11.99 Platelets down from 219-299 Sodium up from 127 230 Potassium down from 3.6-3.3 Chloride stable at 91 Magnesium 1.7 PLAN Transfer to ICU Replace on BiPAP ABGs in 1 hour Daily weights Fluid restriction Increase dietary salt Replace KCl and magnesium Transferred to ICU 12/12/19 Vital signs BP: 102-135/58-79 T-max 98.3 Heart rate 84-130 Pulse ox >71% Intake and output Urine output 2,525 24-hour balance -2,450 Lab results WBC stable at 11.99-11.53 D-dimer up from 0.49-1 Sodium down from 130-129 Potassium down from 3.3-3.1 Chloride up from 91-92 CO2 up from 30-33 Phosphorus down from 3.2-2.6 Mg from 1.7-1.8 CRP up from 6.2-20.2 proBNP up from 3,684-3,842 Ferritin up from 505-609 LDH down from 338-293 PLAN Repeat COVID test Repeat CT chest Daily weights Fluid restriction Continue O2 supplementation via BiPAP Start Dexamethasone 6mg IV QD x 10 days Procalcitonin today and q48h PRN Hydralazine Increase dietary salt Replace PO4, KCl and magnesium 12/13/[address] chest negative for PE, no worsening of infiltrates Echo from 06/14: Stage 2 diastolic dysfunction LVEF 60-65% Patient's lab and clinical picture are highly suggestive of COVID for which new test will be performed today Vital signs BP: 107-128/59-78 T-max 98.3 Heart rate 85-112 Pulse ox >84% Intake and output Urine output 1,850 24-hour balance -2,360 Weight down from 69.4kg to 67.13 Lab results WBC down from 11.53 to 10.98 D-dimer stable from 0.99 to 1 Sodium up from 129-132 Potassium up from 3.1-3.5 Mg up from 1.8 to 2 CRP down from 20.2-17.5 proBNP up from 3,842-4,934 Ferritin up from 609-743 LDH up from 293-392 - Plan Plan:: Acute on chronic respiratory failure with hypoxemia, multifactorial, stable Acute on chronic ischemic heart failure Coronary artery disease s/p stenting x 2 on 09/2019 Idiopathic pulmonary fibrosis Compensated metabolic alkalosis Repeat COVID test, send out Daily weights Fluid restriction Continue O2 supplementation via BiPAP (01/16 @ 50%) Continue Dexamethasone 6mg IV QD x 10 days Procalcitonin q48h COVID labs in AM ABGs in AM Hypertension, controlled Continue home medications PRN Hydralazine Hyponatremia, worse Hypokalemia, worse Hypomagnesemia, worse Hypophosphatemia Increase dietary salt Replace PO4, KCl and magnesium Hypoalbuminemia Prealbumin Dietary consult PROPHYLAXIS DVT-Lovenox GI- not indicated CODE STATUS: DNR/DNI DISPOSITION: Patient will remain in ICU on BiPAP for O2 supplementation, labs highly suggestive of COVID or worsening pneumonia, will repeat test today.
[2019-12-14] MEDS: Aspirin 81 MG Tab.EC PO SCH (09:24)
[2019-12-14] MEDS: Clopidogrel 75 MG Tab PO SCH (09:24)
[2019-12-14] MEDS: Sodium Chloride/Potassium Chloride Tab PO SCH ×3 (09:24→20:13)
[2019-12-14] MEDS: Metoprolol Tartrate 25 MG Tab PO SCH ×2 (09:24→20:13)
[2019-12-14] MEDS: Sodium Chloride 0.9% 10 ML Syringe FLUSH PRN (09:25)
[2019-12-14] MEDS ORDERED: Furosemide 40 MG/4 ML VIAL IVPUSH ONE (10:01)
--- NOTE | 2019-12-14 12:09 | PCM.PN ---
- General Info Date of Service: 12/14/19 Subjective Update: Slept OK Feeling a little more tired Tolerating diet, eating about 50-100% - Patient Data Vitals - Most Recent: Last Vital Signs Temp 97.8 F 12/14/19 11:52 Pulse 69 12/14/19 11:52 Resp 26 H 12/14/19 11:52 BP 127/82 12/14/19 11:52 Pulse Ox 88 L 12/14/19 11:52 Weight - Most Recent: 69.218 kg - Exam General: Alert, Oriented, Cooperative, Mild Distress, Moderate Distress HEENT: Pupils Equal, Pupils Reactive, EOMI, Mucous Membr. Moist/[place] Neck: Supple, Trachea Midline, No JVD, No Thyromegaly, +2 Carotid Pulse wo Bruit. No: Lymphadenopathy Lungs: Normal Respiratory Effort, Decreased Breath Sounds, Crackles, Wheezing. No: Clear to Auscultation, Rales, Rhonchi, Rub, Stridor Cardiovascular: Regular Rate, Regular Rhythm. No: Murmurs, Gallops, Rubs GI/Abdominal Exam: Normal Bowel Sounds, Soft, Non-Tender. No: Distended, Guarding, Rigid, Rebound Back Exam: Normal Inspection. No: CVA Tenderness (L), CVA Tenderness (R), Paraspinal Tenderness, Vertebral Tenderness Extremities: Normal Inspection, Normal Range of Motion, Non-Tender, No Pedal Edema Peripheral Pulses: 2+: Radial (L), Radial (R), Dorsalis Pedis (L), Dorsalis Pedis (R) Skin: Warm, Dry, Intact Neurological: No New Focal Deficit Psy/Mental Status: Normal Affect, Normal Mood Sepsis Event Note - Evaluation Sepsis Screening Result: Severe Sepsis Risk - Problem List & Annotations (1) Acute heart failure SNOMED Code(s): 25118566 Code(s): I50.9 - HEART FAILURE, UNSPECIFIED Status: Acute Current Visit: Yes (2) Acute on chronic respiratory failure with hypoxemia SNOMED Code(s): 12929783846855534 Code(s): J96.21 - ACUTE AND CHRONIC RESPIRATORY FAILURE WITH HYPOXIA Status: Acute Current Visit: Yes (3) Compensated metabolic alkalosis SNOMED Code(s): 0039257 Code(s): E87.3 - ALKALOSIS Status: Acute Current Visit: Yes (4) Coronary artery disease SNOMED Code(s): 30717667 Code(s): I25.10 - ATHSCL HEART DISEASE OF [place] CORONARY ARTERY W/O ANG PCTRS Status: Acute Current Visit: Yes (5) Heart failure, type unknown SNOMED Code(s): 57985647 Code(s): I50.9 - HEART FAILURE, UNSPECIFIED Status: Acute Current Visit: Yes (6) Hypertension SNOMED Code(s): 12465079 Code(s): I10 - ESSENTIAL (PRIMARY) HYPERTENSION Status: Acute Current Visit: Yes (7) Hypoalbuminemia SNOMED Code(s): 857390869 Code(s): E88.09 - OTH DISORDERS OF PLASMA-PROTEIN METABOLISM, NEC Status: Acute Current Visit: Yes (8) Hypokalemia SNOMED Code(s): 41104726 Code(s): E87.6 - HYPOKALEMIA Status: Acute Current Visit: Yes (9) Hypomagnesemia SNOMED Code(s): 132351575 Code(s): E83.42 - HYPOMAGNESEMIA Status: Acute Current Visit: Yes (10) Hyponatremia SNOMED Code(s): 79639296 Code(s): E87.1 - HYPO-OSMOLALITY AND HYPONATREMIA Status: Acute Current Visit: Yes (11) Idiopathic pulmonary fibrosis Status: Acute Current Visit: Yes (12) Leukocytosis SNOMED Code(s): 824945041, 158016917 Code(s): D72.829 - ELEVATED WHITE BLOOD CELL COUNT, UNSPECIFIED Status: Acute Current Visit: Yes (13) Stented coronary artery Status: Acute Current Visit: Yes (14) Tachypnea SNOMED Code(s): 573960417 Code(s): R06.82 - TACHYPNEA, NOT ELSEWHERE CLASSIFIED Status: Acute Current Visit: Yes (15) Congestive heart failure SNOMED Code(s): 65133964 Code(s): I50.9 - HEART FAILURE, UNSPECIFIED Status: Acute Current Visit: No Qualifiers: Heart failure type: unspecified Heart failure chronicity: acute on chronic Qualified Code(s): I50.9 - Heart failure, unspecified (16) Grade II diastolic dysfunction SNOMED Code(s): 2717969 Code(s): I51.9 - HEART DISEASE, UNSPECIFIED Status: Acute Current Visit: Yes - Problem List Review Problem List Initiated/Reviewed/Updated: Yes - Assessment Assessment:: 12/11/19 Came in for worsening shortness of breath and lower extremity edema Chronic O2 dependence at 4 L, recently changed the past 3 weeks Pulse ox on admission 76%--> increased to 6L Labs on admission WBC 10.04, no bands Chemistry: Sodium 127, potassium 3.6, chloride 91, CO2 32, GFR 60 Ferritin 505, LDH 338, d-dimer 0.49, proBNP 3684 ABGs: 7.44/44.3/88/29.4/96.5 Chest x-ray with diffuse increased density on both sides of the chest with concerns for pulmonary edema, enlarged heart VS on admission: BP 141/61(87), HR 72, RR 25, SatO2 76% on 4LPM Home BP management with thiazide, likely causing hyponatremia PLAN CTA chest to r/o pulmonary embolus--> negative for PE Lasix IV now Daily weights Fluid restriction PRN Hydralazine Prealbumin Dietary consult Patient will be admitted on O2 supplementation, diuresis and monitorization. 12/11/19 Worsened respiratory status overnight: Started 4 L/min and dropped to 76% around 7 in the morning increased to 6 and later 10 L/min obtaining a pulse ox of 87% Vital signs MAP: 7590 T-max 97.8 Heart rate 91-110 Pulse ox greater than 76 Intake and output Urine output 1, 550 24-hour balance -1, 250 Lab results WBC up from 10.04-11.99 Platelets down from 219-299 Sodium up from 127 230 Potassium down from 3.6-3.3 Chloride stable at 91 Magnesium 1.7 PLAN Transfer to ICU Replace on BiPAP ABGs in 1 hour Daily weights Fluid restriction Increase dietary salt Replace KCl and magnesium Transferred to ICU 12/12/19 Vital signs BP: 102-135/58-79 T-max 98.3 Heart rate 84-130 Pulse ox >71% Intake and output Urine output 2,525 24-hour balance -2,450 Lab results WBC stable at 11.99-11.53 D-dimer up from 0.49-1 Sodium down from 130-129 Potassium down from 3.3-3.1 Chloride up from 91-92 CO2 up from 30-33 Phosphorus down from 3.2-2.6 Mg from 1.7-1.8 CRP up from 6.2-20.2 proBNP up from 3,684-3,842 Ferritin up from 505-609 LDH down from 338-293 PLAN Repeat COVID test Repeat CT chest Daily weights Fluid restriction Continue O2 supplementation via BiPAP Start Dexamethasone 6mg IV QD x 10 days Procalcitonin today and q48h PRN Hydralazine Increase dietary salt Replace PO4, KCl and magnesium 12/13/[address] chest negative for PE, no worsening of infiltrates Echo from 06/14: Stage 2 diastolic dysfunction LVEF 60-65% Patient's lab and clinical picture are highly suggestive of COVID for which new test will be performed today Vital signs BP: 107-128/59-78 T-max 98.3 Heart rate 85-112 Pulse ox >84% Intake and output Urine output 1,850 24-hour balance -2,360 Weight down from 69.4kg to 67.13 Lab results WBC down from 11.53 to 10.98 D-dimer stable from 0.99 to 1 Sodium up from 129-132 Potassium up from 3.1-3.5 Mg up from 1.8 to 2 CRP down from 20.2-17.5 proBNP up from 3,842-4,934 Ferritin up from 609-743 LDH up from 293-392 PLAN Repeat COVID test, send out Daily weights Fluid restriction Continue O2 supplementation via BiPAP (01/16 @ 50%) Continue Dexamethasone 6mg IV QD x 10 days Procalcitonin q48h COVID labs in AM ABGs in AM Continue home medications PRN Hydralazine Increased dietary salt Replace PO4, KCl and magnesium 12/14/19 VS trends - MAP 82-104 - Tmax 98 - HR 74-91 - SatO2 >82% Lab results - WBC up from 10.98 to 13.03 ( 1% bands) - DD up from 0.99 to 1.11 - Na up from 132 to 134 - CO2 stable at 33 - Ferritin up from 735 to 835 - CRP down from 17.5 to 8.2 - BNP down from 4934 to 4780 - Plan Plan:: Acute on chronic respiratory failure with hypoxemia, multifactorial, stable Acute on chronic ischemic heart failure Coronary artery disease s/p stenting x 2 on 09/2019 Idiopathic pulmonary fibrosis Compensated metabolic alkalosis Repeat COVID test, results pending Consult ID for recommendations on starting COVID treatment Daily weights Fluid restriction Continue O2 supplementation via BiPAP (/ @ 50%) Continue Dexamethasone 6mg IV QD x 10 days Procalcitonin q48h COVID labs in AM ABGs in AM Lasix 20mgIV push Hypertension, controlled Continue home medications PRN Hydralazine Hypoalbuminemia Prealbumin Dietary follow up Hyponatremia/Hypokalemia/Hypomagnesemia,/Hypophosphatemia, resolved PROPHYLAXIS DVT-Lovenox GI- not indicated CODE STATUS: DNR/DNI DISPOSITION: Patient will remain in ICU on BiPAP for O2 supplementation, consult with ID specialist to start on Remdesivir.
[2019-12-14] MEDS ORDERED: REMDESIVIR 200 MG in Sodium Chloride 0.9% 250 ML IV ONE (16:30)
[2019-12-15] MEDS: Metoprolol Tartrate 25 MG Tab PO SCH ×2 (08:08→21:15)
[2019-12-15] MEDS: Aspirin 81 MG Tab.EC PO SCH (08:08)
[2019-12-15] MEDS: Clopidogrel 75 MG Tab PO SCH (08:08)
[2019-12-15] MEDS: Sodium Chloride/Potassium Chloride Tab PO SCH ×3 (08:09→21:15)
[2019-12-15] MEDS: Dexamethasone 4 MG Tab PO SCH (14:02)
[2019-12-15] MEDS: Enoxaparin 40 MG/0.4 ML Syringe SUBCUT SCH (14:03)
[2019-12-15] MEDS: REMDESIVIR 100 MG in Sodium Chloride 0.9% 100 ML IV SCH (15:41)
--- NOTE | 2019-12-15 16:13 | PCM.PN ---
- General Info Date of Service: 12/15/19 Subjective Update: BM yesterday Feeling a lot better Eating OK - Patient Data Vitals - Most Recent: Last Vital Signs Temp 97.2 F 12/15/19 12:00 Pulse 70 12/15/19 08:08 Resp 24 H 12/15/19 12:00 BP 139/66 12/15/19 12:00 Pulse Ox 94 L 12/15/19 12:00 Weight - Most Recent: 68.946 kg - Exam General: Alert, Oriented, Cooperative, Mild Distress, Moderate Distress HEENT: Pupils Equal, Pupils Reactive, EOMI, Mucous Membr. Moist/[place] Neck: Supple, Trachea Midline, No JVD, No Thyromegaly, +2 Carotid Pulse wo Bruit. No: Lymphadenopathy Lungs: Decreased Breath Sounds, Crackles, Wheezing. No: Normal Respiratory Effort, Rales, Rhonchi, Rub, Stridor Cardiovascular: Regular Rate, Regular Rhythm. No: Murmurs, Gallops, Rubs GI/Abdominal Exam: Normal Bowel Sounds, Soft, Non-Tender. No: Distended, Guarding, Rigid, Rebound Back Exam: Normal Inspection. No: CVA Tenderness (L), Paraspinal Tenderness, Vertebral Tenderness Extremities: Normal Inspection, Normal Range of Motion, Non-Tender, Normal Capillary Refill, Pedal Edema Peripheral Pulses: 2+: Radial (L), Radial (R), Dorsalis Pedis (L), Dorsalis Pedis (R) Skin: Warm, Dry, Intact Neurological: No New Focal Deficit Psy/Mental Status: Normal Affect, Anxious Sepsis Event Note - Evaluation Sepsis Screening Result: Severe Sepsis Risk - Problem List & Annotations (1) Acute heart failure SNOMED Code(s): 84138358 Code(s): I50.9 - HEART FAILURE, UNSPECIFIED Status: Acute Current Visit: Yes (2) Acute on chronic respiratory failure with hypoxemia SNOMED Code(s): 41490276858426604 Code(s): J96.21 - ACUTE AND CHRONIC RESPIRATORY FAILURE WITH HYPOXIA Status: Acute Current Visit: Yes (3) Compensated metabolic alkalosis SNOMED Code(s): 1094270 Code(s): E87.3 - ALKALOSIS Status: Acute Current Visit: Yes (4) Coronary artery disease SNOMED Code(s): 77866001 Code(s): I25.10 - ATHSCL HEART DISEASE OF [place] CORONARY ARTERY W/O ANG PCTRS Status: Acute Current Visit: Yes (5) Heart failure, type unknown SNOMED Code(s): 70473969 Code(s): I50.9 - HEART FAILURE, UNSPECIFIED Status: Acute Current Visit: Yes (6) Hypertension SNOMED Code(s): 28242279 Code(s): I10 - ESSENTIAL (PRIMARY) HYPERTENSION Status: Acute Current Visit: Yes (7) Hypoalbuminemia SNOMED Code(s): 527747094 Code(s): E88.09 - OTH DISORDERS OF PLASMA-PROTEIN METABOLISM, NEC Status: Acute Current Visit: Yes (8) Hypokalemia SNOMED Code(s): 02880080 Code(s): E87.6 - HYPOKALEMIA Status: Acute Current Visit: Yes (9) Hypomagnesemia SNOMED Code(s): 353043086 Code(s): E83.42 - HYPOMAGNESEMIA Status: Acute Current Visit: Yes (10) Hyponatremia SNOMED Code(s): 09622799 Code(s): E87.1 - HYPO-OSMOLALITY AND HYPONATREMIA Status: Acute Current Visit: Yes (11) Idiopathic pulmonary fibrosis Status: Acute Current Visit: Yes (12) Leukocytosis SNOMED Code(s): 490278969, 885540039 Code(s): D72.829 - ELEVATED WHITE BLOOD CELL COUNT, UNSPECIFIED Status: Acute Current Visit: Yes (13) Stented coronary artery Status: Acute Current Visit: Yes (14) Tachypnea SNOMED Code(s): 941918589 Code(s): R06.82 - TACHYPNEA, NOT ELSEWHERE CLASSIFIED Status: Acute Current Visit: Yes (15) Congestive heart failure SNOMED Code(s): 40806464 Code(s): I50.9 - HEART FAILURE, UNSPECIFIED Status: Acute Current Visit: No Qualifiers: Heart failure type: unspecified Heart failure chronicity: acute on chronic Qualified Code(s): I50.9 - Heart failure, unspecified (16) Grade II diastolic dysfunction SNOMED Code(s): 2370540 Code(s): I51.9 - HEART DISEASE, UNSPECIFIED Status: Acute Current Visit: Yes - Problem List Review Problem List Initiated/Reviewed/Updated: Yes - Assessment Assessment:: 12/11/19 Came in for worsening shortness of breath and lower extremity edema Chronic O2 dependence at 4 L, recently changed the past 3 weeks Pulse ox on admission 76%--> increased to 6L Labs on admission WBC 10.04, no bands Chemistry: Sodium 127, potassium 3.6, chloride 91, CO2 32, GFR 60 Ferritin 505, LDH 338, d-dimer 0.49, proBNP 3684 ABGs: 7.44/44.3/88/29.4/96.5 Chest x-ray with diffuse increased density on both sides of the chest with concerns for pulmonary edema, enlarged heart VS on admission: BP 141/61(87), HR 72, RR 25, SatO2 76% on 4LPM Home BP management with thiazide, likely causing hyponatremia PLAN CTA chest to r/o pulmonary embolus--> negative for PE Lasix IV now Daily weights Fluid restriction PRN Hydralazine Prealbumin Dietary consult Patient will be admitted on O2 supplementation, diuresis and monitorization. 12/11/19 Worsened respiratory status overnight: Started 4 L/min and dropped to 76% around 7 in the morning increased to 6 and later 10 L/min obtaining a pulse ox of 87% Vital signs MAP: 7590 T-max 97.8 Heart rate 91-110 Pulse ox greater than 76 Intake and output Urine output 1, 550 24-hour balance -1, 250 Lab results WBC up from 10.04-11.99 Platelets down from 219-299 Sodium up from 127 230 Potassium down from 3.6-3.3 Chloride stable at 91 Magnesium 1.7 PLAN Transfer to ICU Replace on BiPAP ABGs in 1 hour Daily weights Fluid restriction Increase dietary salt Replace KCl and magnesium Transferred to ICU 12/12/19 Vital signs BP: 102-135/58-79 T-max 98.3 Heart rate 84-130 Pulse ox >71% Intake and output Urine output 2,525 24-hour balance -2,450 Lab results WBC stable at 11.99-11.53 D-dimer up from 0.49-1 Sodium down from 130-129 Potassium down from 3.3-3.1 Chloride up from 91-92 CO2 up from 30-33 Phosphorus down from 3.2-2.6 Mg from 1.7-1.8 CRP up from 6.2-20.2 proBNP up from 3,684-3,842 Ferritin up from 505-609 LDH down from 338-293 PLAN Repeat COVID test Repeat CT chest Daily weights Fluid restriction Continue O2 supplementation via BiPAP Start Dexamethasone 6mg IV QD x 10 days Procalcitonin today and q48h PRN Hydralazine Increase dietary salt Replace PO4, KCl and magnesium 12/13/[address] chest negative for PE, no worsening of infiltrates Echo from 06/14: Stage 2 diastolic dysfunction LVEF 60-65% Patient's lab and clinical picture are highly suggestive of COVID for which new test will be performed today Vital signs BP: 107-128/59-78 T-max 98.3 Heart rate 85-112 Pulse ox >84% Intake and output Urine output 1,850 24-hour balance -2,360 Weight down from 69.4kg to 67.13 Lab results WBC down from 11.53 to 10.98 D-dimer stable from 0.99 to 1 Sodium up from 129-132 Potassium up from 3.1-3.5 Mg up from 1.8 to 2 CRP down from 20.2-17.5 proBNP up from 3,842-4,934 Ferritin up from 609-743 LDH up from 293-392 PLAN Repeat COVID test, send out Daily weights Fluid restriction Continue O2 supplementation via BiPAP (01/16 @ 50%) Continue Dexamethasone 6mg IV QD x 10 days Procalcitonin q48h COVID labs in AM ABGs in AM Continue home medications PRN Hydralazine Increased dietary salt Replace PO4, KCl and magnesium 12/14/19 VS trends - MAP 82-104 - Tmax 98 - HR 74-91 - SatO2 >82% Lab results - WBC up from 10.98 to 13.03 ( 1% bands) - DD up from 0.99 to 1.11 - Na up from 132 to 134 - CO2 stable at 33 - Ferritin up from 735 to 835 - CRP down from 17.5 to 8.2 - BNP down from 4934 to 4780 PLAN Repeat COVID test, results pending Consult ID for recommendations on starting COVID treatment Daily weights Fluid restriction Continue O2 supplementation via BiPAP (01/16 @ 50%) Continue Dexamethasone 6mg IV QD x 10 days Procalcitonin q48h COVID labs in AM ABGs in AM Lasix 20mgIV push Prealbumin Dietary follow up 12/15/19 Dropped to 78 when she went to take a shower, FiO2 increased to 60% and Sat went up to 93%--> turned back down to 50 Consulted with ID specialty last evening who recommended start patient on Remdesivir VS trends - MAP 70-95 - Tmax 98 - HR 61-71 - SatO2 >89% Intake and output Urine output 1,770 24-hour balance -380 Lab results - WBC down from 13.03 to 11.74 - Neutrophil % down from 88 to 66 - DD up from 1.11 to 1.89 - Na stable at 134 - CO2 stable at 33 - PO4 down from 3.1 to 2.3 - Ferritin down from 835 to 720 - LDH yp from 258 to 263 - CRP down from 8.2 to 4.5 - BNP down from 4180 to 3410 - Plan Plan:: Acute on chronic respiratory failure with hypoxemia, multifactorial, stable Acute on chronic ischemic heart failure Coronary artery disease s/p stenting x 2 on 09/2019 Idiopathic pulmonary fibrosis Compensated metabolic alkalosis Remdesivir day 2 Daily weights Continue O2 supplementation via BiPAP (10/5 @ 50%) Continue Dexamethasone 6mg QD Change Dexamethasone to PO Procalcitonin q48h COVID labs in AM D/C fluid restriction Pulse ox goal 85-90% Hypertension, controlled Continue home medications PRN Hydralazine Hypoalbuminemia Dietary follow up Hyponatremia/Hypokalemia/Hypomagnesemia,/Hypophosphatemia, resolved PROPHYLAXIS DVT-Lovenox GI- not indicated CODE STATUS: DNR/DNI DISPOSITION: Patient will remain in ICU on BiPAP for O2 supplementation, started on Remdesivir yesterday. Will remain admitted for 5 days of treatment.
[2019-12-16] MEDS: Metoprolol Tartrate 25 MG Tab PO SCH ×2 (08:11→20:16)
[2019-12-16] MEDS: Aspirin 81 MG Tab.EC PO SCH (08:12)
[2019-12-16] MEDS: Dexamethasone 4 MG Tab PO SCH (08:13)
[2019-12-16] MEDS: Clopidogrel 75 MG Tab PO SCH (08:13)
[2019-12-16] MEDS: Sodium Chloride/Potassium Chloride Tab PO SCH ×3 (08:14→20:17)
[2019-12-16] MEDS: Enoxaparin 40 MG/0.4 ML Syringe SUBCUT SCH (08:15)
[2019-12-16] MEDS: Ascorbic Acid 500 MG Tab PO SCH ×3 (09:00→20:11)
--- NOTE | 2019-12-16 14:47 | PCM.PN ---
- General Info Date of Service: 12/16/19 Subjective Update: Feels OK Not worse Slept OK Tolerating diet BM yesterday - Patient Data Vitals - Most Recent: Last Vital Signs Temp 98.0 F 12/16/19 08:00 Pulse 63 12/16/19 12:00 Resp 20 12/16/19 08:00 BP 140/70 12/16/19 12:02 Pulse Ox 95 12/16/19 12:50 Weight - Most Recent: 68.946 kg - Exam Quality Assessment: Supplemental Oxygen General: Alert, Oriented, Cooperative, Mild Distress HEENT: Pupils Equal, Pupils Reactive, EOMI, Mucous Membr. Moist/[place] Neck: Supple, Trachea Midline, No JVD, +2 Carotid Pulse wo Bruit. No: Lymphadenopathy Lungs: Decreased Breath Sounds, Crackles, Wheezing. No: Rales, Rhonchi, Rub, Stridor Cardiovascular: Regular Rate, Regular Rhythm. No: Murmurs, Gallops, Rubs GI/Abdominal Exam: Normal Bowel Sounds, Soft, Non-Tender. No: Distended, Guarding, Rigid, Rebound Back Exam: Normal Inspection, Full Range of Motion. No: CVA Tenderness (L), CVA Tenderness (R), Paraspinal Tenderness, Vertebral Tenderness Extremities: Normal Inspection, Normal Range of Motion, Non-Tender, Normal Capillary Refill, Pedal Edema Peripheral Pulses: 2+: Radial (L), Radial (R), Dorsalis Pedis (L), Dorsalis Pedis (R) Skin: Warm, Dry Neurological: No New Focal Deficit Sepsis Event Note - Evaluation Sepsis Screening Result: Severe Sepsis Risk - Problem List & Annotations (1) Acute heart failure SNOMED Code(s): 98832126 Code(s): I50.9 - HEART FAILURE, UNSPECIFIED Status: Acute Current Visit: Yes (2) Acute on chronic respiratory failure with hypoxemia SNOMED Code(s): 26833526448031004 Code(s): J96.21 - ACUTE AND CHRONIC RESPIRATORY FAILURE WITH HYPOXIA Status: Acute Current Visit: Yes (3) Compensated metabolic alkalosis SNOMED Code(s): 7474519 Code(s): E87.3 - ALKALOSIS Status: Acute Current Visit: Yes (4) Coronary artery disease SNOMED Code(s): 09482356 Code(s): I25.10 - ATHSCL HEART DISEASE OF [place] CORONARY ARTERY W/O ANG PCTRS Status: Acute Current Visit: Yes (5) Heart failure, type unknown SNOMED Code(s): 55341445 Code(s): I50.9 - HEART FAILURE, UNSPECIFIED Status: Acute Current Visit: Yes (6) Hypertension SNOMED Code(s): 30181480 Code(s): I10 - ESSENTIAL (PRIMARY) HYPERTENSION Status: Acute Current Visit: Yes (7) Hypoalbuminemia SNOMED Code(s): 265625493 Code(s): E88.09 - OTH DISORDERS OF PLASMA-PROTEIN METABOLISM, NEC Status: Acute Current Visit: Yes (8) Hypokalemia SNOMED Code(s): 66814156 Code(s): E87.6 - HYPOKALEMIA Status: Acute Current Visit: Yes (9) Hypomagnesemia SNOMED Code(s): 390748513 Code(s): E83.42 - HYPOMAGNESEMIA Status: Acute Current Visit: Yes (10) Hyponatremia SNOMED Code(s): 18809214 Code(s): E87.1 - HYPO-OSMOLALITY AND HYPONATREMIA Status: Acute Current Visit: Yes (11) Idiopathic pulmonary fibrosis Status: Acute Current Visit: Yes (12) Leukocytosis SNOMED Code(s): 718069964, 418394713 Code(s): D72.829 - ELEVATED WHITE BLOOD CELL COUNT, UNSPECIFIED Status: Acute Current Visit: Yes (13) Stented coronary artery Status: Acute Current Visit: Yes (14) Tachypnea SNOMED Code(s): 708909082 Code(s): R06.82 - TACHYPNEA, NOT ELSEWHERE CLASSIFIED Status: Acute Current Visit: Yes (15) Congestive heart failure SNOMED Code(s): 73828982 Code(s): I50.9 - HEART FAILURE, UNSPECIFIED Status: Acute Current Visit: No Qualifiers: Heart failure type: unspecified Heart failure chronicity: acute on chronic Qualified Code(s): I50.9 - Heart failure, unspecified (16) Grade II diastolic dysfunction SNOMED Code(s): 3186906 Code(s): I51.9 - HEART DISEASE, UNSPECIFIED Status: Acute Current Visit: Yes (17) UIP (usual interstitial pneumonitis) SNOMED Code(s): 799005747 Code(s): J84.112 - IDIOPATHIC PULMONARY FIBROSIS Status: Acute Current Visit: Yes (18) S/P right coronary artery (RCA) stent placement SNOMED Code(s): 21592308474784, 71681679575951 Code(s): Z95.5 - PRESENCE OF CORONARY ANGIOPLASTY IMPLANT AND GRAFT Status: Acute Current Visit: Yes (19) Presence of drug coated stent in LAD coronary artery SNOMED Code(s): 841934453 Code(s): Z95.5 - PRESENCE OF CORONARY ANGIOPLASTY IMPLANT AND GRAFT Status: Acute Current Visit: Yes - Problem List Review Problem List Initiated/Reviewed/Updated: Yes - Assessment Assessment:: 12/11/19 Came in for worsening shortness of breath and lower extremity edema Chronic O2 dependence at 4 L, recently changed the past 3 weeks Pulse ox on admission 76%--> increased to 6L Labs on admission WBC 10.04, no bands Chemistry: Sodium 127, potassium 3.6, chloride 91, CO2 32, GFR 60 Ferritin 505, LDH 338, d-dimer 0.49, proBNP 3684 ABGs: 7.44/44.3/88/29.4/96.5 Chest x-ray with diffuse increased density on both sides of the chest with concerns for pulmonary edema, enlarged heart VS on admission: BP 141/61(87), HR 72, RR 25, SatO2 76% on 4LPM Home BP management with thiazide, likely causing hyponatremia PLAN CTA chest to r/o pulmonary embolus--> negative for PE Lasix IV now Daily weights Fluid restriction PRN Hydralazine Prealbumin Dietary consult Patient will be admitted on O2 supplementation, diuresis and monitorization. 12/11/19 Worsened respiratory status overnight: Started 4 L/min and dropped to 76% around 7 in the morning increased to 6 and later 10 L/min obtaining a pulse ox of 87% Vital signs MAP: 7590 T-max 97.8 Heart rate 91-110 Pulse ox greater than 76 Intake and output Urine output 1, 550 24-hour balance -1, 250 Lab results WBC up from 10.04-11.99 Platelets down from 219-299 Sodium up from 127 230 Potassium down from 3.6-3.3 Chloride stable at 91 Magnesium 1.7 PLAN Transfer to ICU Replace on BiPAP ABGs in 1 hour Daily weights Fluid restriction Increase dietary salt Replace KCl and magnesium Transferred to ICU 12/12/19 Vital signs BP: 102-135/58-79 T-max 98.3 Heart rate 84-130 Pulse ox >71% Intake and output Urine output 2,525 24-hour balance -2,450 Lab results WBC stable at 11.99-11.53 D-dimer up from 0.49-1 Sodium down from 130-129 Potassium down from 3.3-3.1 Chloride up from 91-92 CO2 up from 30-33 Phosphorus down from 3.2-2.6 Mg from 1.7-1.8 CRP up from 6.2-20.2 proBNP up from 3,684-3,842 Ferritin up from 505-609 LDH down from 338-293 PLAN Repeat COVID test Repeat CT chest Daily weights Fluid restriction Continue O2 supplementation via BiPAP Start Dexamethasone 6mg IV QD x 10 days Procalcitonin today and q48h PRN Hydralazine Increase dietary salt Replace PO4, KCl and magnesium 12/13/[address] chest negative for PE, no worsening of infiltrates Echo from 06/14: Stage 2 diastolic dysfunction LVEF 60-65% Patient's lab and clinical picture are highly suggestive of COVID for which new test will be performed today Vital signs BP: 107-128/59-78 T-max 98.3 Heart rate 85-112 Pulse ox >84% Intake and output Urine output 1,850 24-hour balance -2,360 Weight down from 69.4kg to 67.13 Lab results WBC down from 11.53 to 10.98 D-dimer stable from 0.99 to 1 Sodium up from 129-132 Potassium up from 3.1-3.5 Mg up from 1.8 to 2 CRP down from 20.2-17.5 proBNP up from 3,842-4,934 Ferritin up from 609-743 LDH up from 293-392 PLAN Repeat COVID test, send out Daily weights Fluid restriction Continue O2 supplementation via BiPAP (01/16 @ 50%) Continue Dexamethasone 6mg IV QD x 10 days Procalcitonin q48h COVID labs in AM ABGs in AM Continue home medications PRN Hydralazine Increased dietary salt Replace PO4, KCl and magnesium 12/14/19 Patient is not improving as I would hope, this is likely because she has viral pneumonia and is just not testing positive for COVID Will discuss case with ID to evaluate if they agree with me starting patient on Remdesivir VS trends - MAP 82-104 - Tmax 98 - HR 74-91 - SatO2 >82% Lab results - WBC up from 10.98 to 13.03 ( 1% bands) - DD up from 0.99 to 1.11 - Na up from 132 to 134 - CO2 stable at 33 - Ferritin up from 735 to 835 - CRP down from 17.5 to 8.2 - BNP down from 4934 to 4780 PLAN Repeat COVID test, results pending Consult ID for recommendations on starting COVID treatment Daily weights Fluid restriction Continue O2 supplementation via BiPAP (01/16 @ 50%) Continue Dexamethasone 6mg IV QD x 10 days Procalcitonin q48h COVID labs in AM ABGs in AM Lasix 20mgIV push Prealbumin Dietary follow up 12/15/19 Dropped to 78 when she went to take a shower, FiO2 increased to 60% and Sat went up to 93%--> turned back down to 50 Consulted with ID specialty last evening who recommended start patient on Remdesivir VS trends - MAP 70-95 - Tmax 98 - HR 61-71 - SatO2 >89% Intake and output Urine output 1,770 24-hour balance -380 Lab results - WBC down from 13.03 to 11.74 - Neutrophil % down from 88 to 66 - DD up from 1.11 to 1.89 - Na stable at 134 - CO2 stable at 33 - PO4 down from 3.1 to 2.3 - Ferritin down from 835 to 720 - LDH yp from 258 to 263 - CRP down from 8.2 to 4.5 - BNP down from 4180 to 3410 12/16/19 Patient had discussed with me how she had been seen by a oil and gas superintendent recently and they had told her she needed a blood test prior to starting a medication for her pulmonary fibrosis - Records were requested from Pulmonary (Dr. Myrick) and cardiology (Dr. Mendiola) - Left heart cath: - s/p rotational atherectomy - Placement of DEX to mid RCA and proximal LAD - Known occlusion of the marginal branch - PFTs: FEV1- 74%, FVC-52%, TLC-51%, DLCO-31% - Moderate restriction - interstitial - Severe diffusion defect - Completed 18% of 6 minute walk test - Planning to start patient on Ofev (Nintedanib) --> needs LFTs prior to starting Inflammatory markers continue to trend down Significant improvement in oxygenation since Remdesivir was started Her O2 requirements have decreased and patient spent most of the day yesterday with NC and tolerated well all day at 5LPM since 4AM VS trends - MAP 70-95 - Tmax 97.9 - HR 61-71 - SatO2 >89% Lab results - WBC down from 11.74 to 8.41 - DD down from 1.89 to 1.15 - Na down from 134 to 132 - K up from 3.9 to 4.6 - CO2 up from 33 to 35 - PO4 up from 2.3 to 3.3 - Ferritin down from 720 to 687 - CRP down from 4.2 to 4.5 - BNP up from 3410 to 4099 - Plan Plan:: Acute on chronic respiratory failure with hypoxemia, multifactorial, stable Acute on chronic ischemic heart failure Coronary artery disease s/p stenting x 2 on 09/2019 Idiopathic pulmonary fibrosis Compensated metabolic alkalosis Remdesivir day 3 Dexamethasone 6mg QD day 4 Daily weights Continue O2 supplementation via NC and BiPAP Procalcitonin q48h Pulse ox goal 85-90% Start vitamin C to complete 10 days Taper down O2 supplementation as tolerated Hypertension, controlled Continue home medications PRN Hydralazine Hypoalbuminemia Dietary follow up Hyponatremia/Hypokalemia/Hypomagnesemia,/Hypophosphatemia, resolved PROPHYLAXIS DVT-Lovenox GI- not indicated CODE STATUS: DNR/DNI DISPOSITION: Patient will remain in ICU on nasal cannula for O2 supplementation with BiPAP when tired. Will remain admitted for 5 days of treatment.
[2019-12-16] MEDS ORDERED: Albuterol 6.7 GM Inhaler INH PRN (16:58)
[2019-12-16] MEDS: REMDESIVIR 100 MG in Sodium Chloride 0.9% 100 ML IV SCH (17:44)
[2019-12-16] MEDS ORDERED: Sodium Chloride/Potassium Chloride Tab PO ONE (17:45)
[2019-12-16] MEDS: Melatonin 3 MG Tab PO PRN (21:34)
[2019-12-17] MEDS: Ascorbic Acid 500 MG Tab PO SCH ×4 (02:27→21:22)
[2019-12-17] MEDS: Aspirin 81 MG Tab.EC PO SCH (09:19)
[2019-12-17] MEDS: Enoxaparin 40 MG/0.4 ML Syringe SUBCUT SCH (09:19)
[2019-12-17] MEDS: Sodium Chloride/Potassium Chloride Tab PO SCH ×3 (09:19→21:22)
[2019-12-17] MEDS: Clopidogrel 75 MG Tab PO SCH (09:20)
[2019-12-17] MEDS: Dexamethasone 4 MG Tab PO SCH (09:20)
[2019-12-17] MEDS: Metoprolol Tartrate 25 MG Tab PO SCH ×2 (09:20→21:22)
--- NOTE | 2019-12-17 10:51 | PCM.PN ---
- General Info Date of Service: 12/17/19 Subjective Update: BM yesterday Tolerating diet No pain Breathing a lot better - Patient Data Vitals - Most Recent: Last Vital Signs Temp 98.2 F 12/17/19 08:00 Pulse 71 12/17/19 09:20 Resp 20 12/17/19 08:00 BP 117/49 L 12/17/19 09:20 Pulse Ox 86 L 12/17/19 08:00 Weight - Most Recent: 68.039 kg - Exam General: Alert, Oriented, Cooperative, No Acute Distress HEENT: Pupils Equal, Pupils Reactive, EOMI, Mucous Membr. Moist/[place] Neck: Supple, Trachea Midline. No: Lymphadenopathy Lungs: Crackles (thin, velcro-like from mid lung yoo down), Wheezing (very occasional and minimal at end of expiration). No: Rales, Rhonchi, Rub, Stridor Cardiovascular: Regular Rate, Regular Rhythm. No: Murmurs, Gallops, Rubs GI/Abdominal Exam: Normal Bowel Sounds, Soft, Non-Tender. No: Distended, Guarding, Rigid, Rebound Back Exam: Normal Inspection. No: CVA Tenderness (L), CVA Tenderness (R), Paraspinal Tenderness, Vertebral Tenderness Extremities: Normal Inspection, Normal Range of Motion, Pedal Edema, Slow Capillary Refill Peripheral Pulses: 2+: Radial (L), Radial (R), Dorsalis Pedis (L), Dorsalis Pedis (R) Skin: Warm, Dry, Intact Neurological: No New Focal Deficit Psy/Mental Status: Normal Affect, Normal Mood Sepsis Event Note - Evaluation Sepsis Screening Result: No Definite Risk - Problem List & Annotations (1) Acute heart failure SNOMED Code(s): 26215983 Code(s): I50.9 - HEART FAILURE, UNSPECIFIED Status: Acute Current Visit: Yes (2) Acute on chronic respiratory failure with hypoxemia SNOMED Code(s): 96179800160229658 Code(s): J96.21 - ACUTE AND CHRONIC RESPIRATORY FAILURE WITH HYPOXIA Status: Acute Current Visit: Yes (3) Compensated metabolic alkalosis SNOMED Code(s): 9245577 Code(s): E87.3 - ALKALOSIS Status: Acute Current Visit: Yes (4) Coronary artery disease SNOMED Code(s): 96238501 Code(s): I25.10 - ATHSCL HEART DISEASE OF [place] CORONARY ARTERY W/O ANG PCTRS Status: Acute Current Visit: Yes (5) Heart failure, type unknown SNOMED Code(s): 63806878 Code(s): I50.9 - HEART FAILURE, UNSPECIFIED Status: Acute Current Visit: Yes (6) Hypertension SNOMED Code(s): 15161147 Code(s): I10 - ESSENTIAL (PRIMARY) HYPERTENSION Status: Acute Current Visit: Yes (7) Hypoalbuminemia SNOMED Code(s): 362074665 Code(s): E88.09 - [facility] DISORDERS OF PLASMA-PROTEIN METABOLISM, NEC Status: Acute Current Visit: Yes (8) Hypokalemia SNOMED Code(s): 11000809 Code(s): E87.6 - HYPOKALEMIA Status: Acute Current Visit: Yes (9) Hypomagnesemia SNOMED Code(s): 834631665 Code(s): E83.42 - HYPOMAGNESEMIA Status: Acute Current Visit: Yes (10) Hyponatremia SNOMED Code(s): 75067930 Code(s): E87.1 - HYPO-OSMOLALITY AND HYPONATREMIA Status: Acute Current Visit: Yes (11) Idiopathic pulmonary fibrosis Status: Acute Current Visit: Yes (12) Leukocytosis SNOMED Code(s): 263230274, 942776093 Code(s): D72.829 - ELEVATED WHITE BLOOD CELL COUNT, UNSPECIFIED Status: Acute Current Visit: Yes (13) Stented coronary artery Status: Acute Current Visit: Yes (14) Tachypnea SNOMED Code(s): 646645663 Code(s): R06.82 - TACHYPNEA, NOT ELSEWHERE CLASSIFIED Status: Acute Current Visit: Yes (15) Congestive heart failure SNOMED Code(s): 89416157 Code(s): I50.9 - HEART FAILURE, UNSPECIFIED Status: Acute Current Visit: No Qualifiers: Heart failure type: unspecified Heart failure chronicity: acute on chronic Qualified Code(s): I50.9 - Heart failure, unspecified (16) Grade II diastolic dysfunction SNOMED Code(s): 4324398 Code(s): I51.9 - HEART DISEASE, UNSPECIFIED Status: Acute Current Visit: Yes (17) UIP (usual interstitial pneumonitis) SNOMED Code(s): 036212456 Code(s): J84.112 - IDIOPATHIC PULMONARY FIBROSIS Status: Acute Current Visit: Yes (18) S/P right coronary artery (RCA) stent placement SNOMED Code(s): 63730175875325, 24958423675466 Code(s): Z95.5 - PRESENCE OF CORONARY ANGIOPLASTY IMPLANT AND GRAFT Status: Acute Current Visit: Yes (19) Presence of drug coated stent in LAD coronary artery SNOMED Code(s): 241752509 Code(s): Z95.5 - PRESENCE OF CORONARY ANGIOPLASTY IMPLANT AND GRAFT Status: Acute Current Visit: Yes - Problem List Review Problem List Initiated/Reviewed/Updated: Yes - Assessment Assessment:: 12/11/19 Came in for worsening shortness of breath and lower extremity edema Chronic O2 dependence at 4 L, recently changed the past 3 weeks Pulse ox on admission 76%--> increased to 6L Labs on admission WBC 10.04, no bands Chemistry: Sodium 127, potassium 3.6, chloride 91, CO2 32, GFR 60 Ferritin 505, LDH 338, d-dimer 0.49, proBNP 3684 ABGs: 7.44/44.3/88/29.4/96.5 Chest x-ray with diffuse increased density on both sides of the chest with concerns for pulmonary edema, enlarged heart VS on admission: BP 141/61(87), HR 72, RR 25, SatO2 76% on 4LPM Home BP management with thiazide, likely causing hyponatremia PLAN CTA chest to r/o pulmonary embolus--> negative for PE Lasix IV now Daily weights Fluid restriction PRN Hydralazine Prealbumin Dietary consult Patient will be admitted on O2 supplementation, diuresis and monitorization. 12/11/19 Worsened respiratory status overnight: Started 4 L/min and dropped to 76% around 7 in the morning increased to 6 and later 10 L/min obtaining a pulse ox of 87% Vital signs MAP: 7590 T-max 97.8 Heart rate 91-110 Pulse ox greater than 76 Intake and output Urine output 1, 550 24-hour balance -1, 250 Lab results WBC up from 10.04-11.99 Platelets down from 219-299 Sodium up from 127 230 Potassium down from 3.6-3.3 Chloride stable at 91 Magnesium 1.7 PLAN Transfer to ICU Replace on BiPAP ABGs in 1 hour Daily weights Fluid restriction Increase dietary salt Replace KCl and magnesium Transferred to ICU 12/12/19 Vital signs BP: 102-135/58-79 T-max 98.3 Heart rate 84-130 Pulse ox >71% Intake and output Urine output 2,525 24-hour balance -2,450 Lab results WBC stable at 11.99-11.53 D-dimer up from 0.49-1 Sodium down from 130-129 Potassium down from 3.3-3.1 Chloride up from 91-92 CO2 up from 30-33 Phosphorus down from 3.2-2.6 Mg from 1.7-1.8 CRP up from 6.2-20.2 proBNP up from 3,684-3,842 Ferritin up from 505-609 LDH down from 338-293 PLAN Repeat COVID test Repeat CT chest Daily weights Fluid restriction Continue O2 supplementation via BiPAP Start Dexamethasone 6mg IV QD x 10 days Procalcitonin today and q48h PRN Hydralazine Increase dietary salt Replace PO4, KCl and magnesium 12/13/[address] chest negative for PE, no worsening of infiltrates Echo from 06/14: Stage 2 diastolic dysfunction LVEF 60-65% Patient's lab and clinical picture are highly suggestive of COVID for which new test will be performed today Vital signs BP: 107-128/59-78 T-max 98.3 Heart rate 85-112 Pulse ox >84% Intake and output Urine output 1,850 24-hour balance -2,360 Weight down from 69.4kg to 67.13 Lab results WBC down from 11.53 to 10.98 D-dimer stable from 0.99 to 1 Sodium up from 129-132 Potassium up from 3.1-3.5 Mg up from 1.8 to 2 CRP down from 20.2-17.5 proBNP up from 3,842-4,934 Ferritin up from 609-743 LDH up from 293-392 PLAN Repeat COVID test, send out Daily weights Fluid restriction Continue O2 supplementation via BiPAP (01/16 @ 50%) Continue Dexamethasone 6mg IV QD x 10 days Procalcitonin q48h COVID labs in AM ABGs in AM Continue home medications PRN Hydralazine Increased dietary salt Replace PO4, KCl and magnesium 12/14/19 Patient is not improving as I would hope, this is likely because she has viral pneumonia and is just not testing positive for COVID Will discuss case with ID to evaluate if they agree with me starting patient on Remdesivir VS trends - MAP 82-104 - Tmax 98 - HR 74-91 - SatO2 >82% Lab results - WBC up from 10.98 to 13.03 ( 1% bands) - DD up from 0.99 to 1.11 - Na up from 132 to 134 - CO2 stable at 33 - Ferritin up from 735 to 835 - CRP down from 17.5 to 8.2 - BNP down from 4934 to 4780 PLAN Repeat COVID test, results pending Consult ID for recommendations on starting COVID treatment Daily weights Fluid restriction Continue O2 supplementation via BiPAP (01/16 @ 50%) Continue Dexamethasone 6mg IV QD x 10 days Procalcitonin q48h COVID labs in AM ABGs in AM Lasix 20mgIV push Prealbumin Dietary follow up 12/15/19 Dropped to 78 when she went to take a shower, FiO2 increased to 60% and Sat went up to 93%--> turned back down to 50 Consulted with ID specialty last evening who recommended start patient on Remdesivir VS trends - MAP 70-95 - Tmax 98 - HR 61-71 - SatO2 >89% Intake and output Urine output 1,770 24-hour balance -380 Lab results - WBC down from 13.03 to 11.74 - Neutrophil % down from 88 to 66 - DD up from 1.11 to 1.89 - Na stable at 134 - CO2 stable at 33 - PO4 down from 3.1 to 2.3 - Ferritin down from 835 to 720 - LDH yp from 258 to 263 - CRP down from 8.2 to 4.5 - BNP down from 4180 to 3410 12/16/19 Patient had discussed with me how she had been seen by a process description writer recently and they had told her she needed a blood test prior to starting a medication for her pulmonary fibrosis - Records were requested from Pulmonary (Dr. Myrick) and cardiology (Dr. Mendiola) - Left heart cath: - s/p rotational atherectomy - Placement of DEX to mid RCA and proximal LAD - Known occlusion of the marginal branch - PFTs: FEV1- 74%, FVC-52%, TLC-51%, DLCO-31% - Moderate restriction - interstitial - Severe diffusion defect - Completed 18% of 6 minute walk test - Planning to start patient on Ofev (Nintedanib) --> needs LFTs prior to starting Inflammatory markers continue to trend down Significant improvement in oxygenation since Remdesivir was started Her O2 requirements have decreased and patient spent most of the day yesterday with NC and tolerated well all day at 5LPM since 4AM VS trends - MAP 70-95 - Tmax 97.9 - HR 61-71 - SatO2 >89% Lab results - WBC down from 11.74 to 8.41 - DD down from 1.89 to 1.15 - Na down from 134 to 132 - K up from 3.9 to 4.6 - CO2 up from 33 to 35 - PO4 up from 2.3 to 3.3 - Ferritin down from 720 to 687 - CRP down from 4.2 to 4.5 - BNP up from 3410 to 4099 PLAN Remdesivir day 3 Dexamethasone 6mg QD day 4 Daily weights Continue O2 supplementation via NC and BiPAP Procalcitonin q48h Pulse ox goal 85-90% Start vitamin C to complete 10 days Taper down O2 supplementation as tolerated 12/17/19 Sleeping better Has been on nasal canula only for more than 24 hours, currently only on 5LPM No longer using BiPAP since 12/13 at 9AM Pulse ox does drop on exertion but overall has stayed above 88% Is recovering faster now than initially after exertion Patient declines worsening of symptoms VS trends - MAP 72-95 - Tmax 98 - HR 63-72 - SatO2 >88% Lab results - WBC up from 8.41 to 11.72 - DD up from 1.15 to 1.7 - Na up from 132 to 133 - CO2 down from 35 to 33 - CRP down from 4.2 to 2.8 - BNP down from 4099 to 3663 - Ferritin mild increase from 687 to 713 - Plan Plan:: Acute on chronic respiratory failure with hypoxemia, multifactorial, stable Acute on chronic ischemic heart failure Coronary artery disease s/p stenting x 2 on 09/2019 Idiopathic pulmonary fibrosis Compensated metabolic alkalosis Remdesivir day 4 Dexamethasone 6mg QD day 5 Daily weights Continue O2 supplementation via NC Procalcitonin q48h Pulse ox goal 85-90% Continue vitamin C to complete 10 days Taper down O2 supplementation as tolerated Hypertension, controlled Continue home medications PRN Hydralazine Hypoalbuminemia Dietary follow up Hyponatremia/Hypokalemia/Hypomagnesemia,/Hypophosphatemia, resolved PROPHYLAXIS DVT-Lovenox GI- not indicated CODE STATUS: DNR/DNI DISPOSITION: Patient is stable enough to be downgraded to med surg. PT is recommending placement to SNF, however her exertion tolerance is changing so will continue current regimen. Will have PT evaluate on a daily basis to trend progress and adjust recommendations. Application has been sent to [facility] in the meantime.
[2019-12-17] MEDS: REMDESIVIR 100 MG in Sodium Chloride 0.9% 100 ML IV SCH (15:40)
[2019-12-18] MEDS: Ascorbic Acid 500 MG Tab PO SCH ×4 (03:25→20:44)
[2019-12-18] MEDS: Metoprolol Tartrate 25 MG Tab PO SCH ×2 (09:04→20:45)
[2019-12-18] MEDS: Sodium Chloride/Potassium Chloride Tab PO SCH ×3 (09:06→20:45)
[2019-12-18] MEDS: Clopidogrel 75 MG Tab PO SCH (09:07)
[2019-12-18] MEDS: Aspirin 81 MG Tab.EC PO SCH (09:07)
[2019-12-18] MEDS: Dexamethasone 4 MG Tab PO SCH (09:08)
[2019-12-18] MEDS: Enoxaparin 40 MG/0.4 ML Syringe SUBCUT SCH (09:09)
--- NOTE | 2019-12-18 10:26 | PCM.PN ---
- General Info Date of Service: 12/18/19 Subjective Update: BM yesterday Feels better Shortness of breath at 5/10 Slept OK No complaints - Patient Data Vitals - Most Recent: Last Vital Signs Temp 97.5 F 12/18/19 08:37 Pulse 65 12/18/19 09:04 Resp 20 12/18/19 08:37 BP 130/62 12/18/19 09:04 Pulse Ox 91 L 12/18/19 08:37 Weight - Most Recent: 67.631 kg - Exam Quality Assessment: Supplemental Oxygen, Urine Catheter General: Alert, Oriented, Cooperative, Mild Distress HEENT: Pupils Equal, Pupils Reactive, EOMI, Mucous Membr. Moist/[place] Neck: Supple, Trachea Midline Lungs: Decreased Breath Sounds, Crackles (thin crackles throughout posterior lung yoo), Wheezing (minimal end expiratory wheezing) Cardiovascular: Regular Rate, Regular Rhythm. No: Murmurs, Gallops, Rubs GI/Abdominal Exam: Normal Bowel Sounds, Soft. No: Distended, Guarding, Rigid, Rebound, Tender Extremities: Normal Inspection, Normal Capillary Refill, Pedal Edema (stable) Peripheral Pulses: 2+: Radial (L), Radial (R) Skin: Warm, Dry, Intact Sepsis Event Note - Evaluation Sepsis Screening Result: No Definite Risk - Problem List & Annotations (1) Acute heart failure SNOMED Code(s): 42623673 Code(s): I50.9 - HEART FAILURE, UNSPECIFIED Status: Acute Current Visit: Yes (2) Acute on chronic respiratory failure with hypoxemia SNOMED Code(s): 13494042899654177 Code(s): J96.21 - ACUTE AND CHRONIC RESPIRATORY FAILURE WITH HYPOXIA Status: Acute Current Visit: Yes (3) Compensated metabolic alkalosis SNOMED Code(s): 1618879 Code(s): E87.3 - ALKALOSIS Status: Acute Current Visit: Yes (4) Coronary artery disease SNOMED Code(s): 88915005 Code(s): I25.10 - ATHSCL HEART DISEASE OF [place] CORONARY ARTERY W/O ANG PCTRS Status: Acute Current Visit: Yes (5) Heart failure, type unknown SNOMED Code(s): 16265147 Code(s): I50.9 - HEART FAILURE, UNSPECIFIED Status: Acute Current Visit: Yes (6) Hypertension SNOMED Code(s): 16134770 Code(s): I10 - ESSENTIAL (PRIMARY) HYPERTENSION Status: Acute Current Visit: Yes (7) Hypoalbuminemia SNOMED Code(s): 350163476 Code(s): E88.09 - OTH DISORDERS OF PLASMA-PROTEIN METABOLISM, NEC Status: Acute Current Visit: Yes (8) Hypokalemia SNOMED Code(s): 89187282 Code(s): E87.6 - HYPOKALEMIA Status: Acute Current Visit: Yes (9) Hypomagnesemia SNOMED Code(s): 999438564 Code(s): E83.42 - HYPOMAGNESEMIA Status: Acute Current Visit: Yes (10) Hyponatremia SNOMED Code(s): 52452252 Code(s): E87.1 - HYPO-OSMOLALITY AND HYPONATREMIA Status: Acute Current Visit: Yes (11) Idiopathic pulmonary fibrosis Status: Acute Current Visit: Yes (12) Leukocytosis SNOMED Code(s): 984403800, 190028257 Code(s): D72.829 - ELEVATED WHITE BLOOD CELL COUNT, UNSPECIFIED Status: Acute Current Visit: Yes (13) Stented coronary artery Status: Acute Current Visit: Yes (14) Tachypnea SNOMED Code(s): 287418848 Code(s): R06.82 - TACHYPNEA, NOT ELSEWHERE CLASSIFIED Status: Acute Current Visit: Yes (15) Congestive heart failure SNOMED Code(s): 55065002 Code(s): I50.9 - HEART FAILURE, UNSPECIFIED Status: Acute Current Visit: No Qualifiers: Heart failure type: unspecified Heart failure chronicity: acute on chronic Qualified Code(s): I50.9 - Heart failure, unspecified (16) Grade II diastolic dysfunction SNOMED Code(s): 7032371 Code(s): I51.9 - HEART DISEASE, UNSPECIFIED Status: Acute Current Visit: Yes (17) UIP (usual interstitial pneumonitis) SNOMED Code(s): 783223104 Code(s): J84.112 - IDIOPATHIC PULMONARY FIBROSIS Status: Acute Current Visit: Yes (18) S/P right coronary artery (RCA) stent placement SNOMED Code(s): 35702373797387, 05307613227755 Code(s): Z95.5 - PRESENCE OF CORONARY ANGIOPLASTY IMPLANT AND GRAFT Status: Acute Current Visit: Yes (19) Presence of drug coated stent in LAD coronary artery SNOMED Code(s): 771358834 Code(s): Z95.5 - PRESENCE OF CORONARY ANGIOPLASTY IMPLANT AND GRAFT Status: Acute Current Visit: Yes (20) Hyperkalemia SNOMED Code(s): 00336571 Code(s): E87.5 - HYPERKALEMIA Status: Acute Current Visit: Yes - Problem List Review Problem List Initiated/Reviewed/Updated: Yes - Assessment Assessment:: 12/11/19 Came in for worsening shortness of breath and lower extremity edema Chronic O2 dependence at 4 L, recently changed the past 3 weeks Pulse ox on admission 76%--> increased to 6L Labs on admission WBC 10.04, no bands Chemistry: Sodium 127, potassium 3.6, chloride 91, CO2 32, GFR 60 Ferritin 505, LDH 338, d-dimer 0.49, proBNP 3684 ABGs: 7.44/44.3/88/29.4/96.5 Chest x-ray with diffuse increased density on both sides of the chest with concerns for pulmonary edema, enlarged heart VS on admission: BP 141/61(87), HR 72, RR 25, SatO2 76% on 4LPM Home BP management with thiazide, likely causing hyponatremia PLAN CTA chest to r/o pulmonary embolus--> negative for PE Lasix IV now Daily weights Fluid restriction PRN Hydralazine Prealbumin Dietary consult Patient will be admitted on O2 supplementation, diuresis and monitorization. 12/11/19 Worsened respiratory status overnight: Started 4 L/min and dropped to 76% around 7 in the morning increased to 6 and later 10 L/min obtaining a pulse ox of 87% Vital signs MAP: 7590 T-max 97.8 Heart rate 91-110 Pulse ox greater than 76 Intake and output Urine output 1, 550 24-hour balance -1, 250 Lab results WBC up from 10.04-11.99 Platelets down from 219-299 Sodium up from 127 230 Potassium down from 3.6-3.3 Chloride stable at 91 Magnesium 1.7 PLAN Transfer to ICU Replace on BiPAP ABGs in 1 hour Daily weights Fluid restriction Increase dietary salt Replace KCl and magnesium Transferred to ICU 12/12/19 Vital signs BP: 102-135/58-79 T-max 98.3 Heart rate 84-130 Pulse ox >71% Intake and output Urine output 2,525 24-hour balance -2,450 Lab results WBC stable at 11.99-11.53 D-dimer up from 0.49-1 Sodium down from 130-129 Potassium down from 3.3-3.1 Chloride up from 91-92 CO2 up from 30-33 Phosphorus down from 3.2-2.6 Mg from 1.7-1.8 CRP up from 6.2-20.2 proBNP up from 3,684-3,842 Ferritin up from 505-609 LDH down from 338-293 PLAN Repeat COVID test Repeat CT chest Daily weights Fluid restriction Continue O2 supplementation via BiPAP Start Dexamethasone 6mg IV QD x 10 days Procalcitonin today and q48h PRN Hydralazine Increase dietary salt Replace PO4, KCl and magnesium 12/13/[address] chest negative for PE, no worsening of infiltrates Echo from 06/14: Stage 2 diastolic dysfunction LVEF 60-65% Patient's lab and clinical picture are highly suggestive of COVID for which new test will be performed today Vital signs BP: 107-128/59-78 T-max 98.3 Heart rate 85-112 Pulse ox >84% Intake and output Urine output 1,850 24-hour balance -2,360 Weight down from 69.4kg to 67.13 Lab results WBC down from 11.53 to 10.98 D-dimer stable from 0.99 to 1 Sodium up from 129-132 Potassium up from 3.1-3.5 Mg up from 1.8 to 2 CRP down from 20.2-17.5 proBNP up from 3,842-4,934 Ferritin up from 609-743 LDH up from 293-392 PLAN Repeat COVID test, send out Daily weights Fluid restriction Continue O2 supplementation via BiPAP (01/16 @ 50%) Continue Dexamethasone 6mg IV QD x 10 days Procalcitonin q48h COVID labs in AM ABGs in AM Continue home medications PRN Hydralazine Increased dietary salt Replace PO4, KCl and magnesium 12/14/19 Patient is not improving as I would hope, this is likely because she has viral pneumonia and is just not testing positive for COVID Will discuss case with ID to evaluate if they agree with me starting patient on Remdesivir VS trends - MAP 82-104 - Tmax 98 - HR 74-91 - SatO2 >82% Lab results - WBC up from 10.98 to 13.03 ( 1% bands) - DD up from 0.99 to 1.11 - Na up from 132 to 134 - CO2 stable at 33 - Ferritin up from 735 to 835 - CRP down from 17.5 to 8.2 - BNP down from 4934 to 4780 PLAN Repeat COVID test, results pending Consult ID for recommendations on starting COVID treatment Daily weights Fluid restriction Continue O2 supplementation via BiPAP (01/16 @ 50%) Continue Dexamethasone 6mg IV QD x 10 days Procalcitonin q48h COVID labs in AM ABGs in AM Lasix 20mgIV push Prealbumin Dietary follow up 12/15/19 Dropped to 78 when she went to take a shower, FiO2 increased to 60% and Sat went up to 93%--> turned back down to 50 Consulted with ID specialty last evening who recommended start patient on Remdesivir VS trends - MAP 70-95 - Tmax 98 - HR 61-71 - SatO2 >89% Intake and output Urine output 1,770 24-hour balance -380 Lab results - WBC down from 13.03 to 11.74 - Neutrophil % down from 88 to 66 - DD up from 1.11 to 1.89 - Na stable at 134 - CO2 stable at 33 - PO4 down from 3.1 to 2.3 - Ferritin down from 835 to 720 - LDH yp from 258 to 263 - CRP down from 8.2 to 4.5 - BNP down from 4180 to 3410 12/16/19 Patient had discussed with me how she had been seen by a oyster cultivator recently and they had told her she needed a blood test prior to starting a medication for her pulmonary fibrosis - Records were requested from Pulmonary (Dr. Myrick) and cardiology (Dr. Mendiola) - Left heart cath: - s/p rotational atherectomy - Placement of DEX to mid RCA and proximal LAD - Known occlusion of the marginal branch - PFTs: FEV1- 74%, FVC-52%, TLC-51%, DLCO-31% - Moderate restriction - interstitial - Severe diffusion defect - Completed 18% of 6 minute walk test - Planning to start patient on Ofev (Nintedanib) --> needs LFTs prior to starting Inflammatory markers continue to trend down Significant improvement in oxygenation since Remdesivir was started Her O2 requirements have decreased and patient spent most of the day yesterday with NC and tolerated well all day at 5LPM since 4AM VS trends - MAP 70-95 - Tmax 97.9 - HR 61-71 - SatO2 >89% Lab results - WBC down from 11.74 to 8.41 - DD down from 1.89 to 1.15 - Na down from 134 to 132 - K up from 3.9 to 4.6 - CO2 up from 33 to 35 - PO4 up from 2.3 to 3.3 - Ferritin down from 720 to 687 - CRP down from 4.2 to 4.5 - BNP up from 3410 to 4099 PLAN Remdesivir day 3 Dexamethasone 6mg QD day 4 Daily weights Continue O2 supplementation via NC and BiPAP Procalcitonin q48h Pulse ox goal 85-90% Start vitamin C to complete 10 days Taper down O2 supplementation as tolerated 12/17/19 Sleeping better Has been on nasal canula only for more than 24 hours, currently only on 5LPM No longer using BiPAP since 12/13 at 9AM Pulse ox does drop on exertion but overall has stayed above 88% Is recovering faster now than initially after exertion Patient declines worsening of symptoms VS trends - MAP 72-95 - Tmax 98 - HR 63-72 - SatO2 >88% Lab results - WBC up from 8.41 to 11.72 - DD up from 1.15 to 1.7 - Na up from 132 to 133 - CO2 down from 35 to 33 - CRP down from 4.2 to 2.8 - BNP down from 4099 to 3663 - Ferritin mild increase from 687 to 713 PLAN Remdesivir day 4 Dexamethasone 6mg QD day 5 Daily weights Continue O2 supplementation via NC Procalcitonin q48h Pulse ox goal 85-90% Continue vitamin C to complete 10 days Taper down O2 supplementation as tolerated PRN Hydralazine Dietary follow up Patient is stable enough to be downgraded to med surg. PT is recommending placement to SNF, however her exertion tolerance is changing so will continue current regimen. Will have PT evaluate on a daily basis to trend progress and adjust recommendations. Application has been sent to [facility] in the meantime. 12/18/19 Physical exam with significant interval improvement - Air entry is audible throughout lung yoo - End expiratory wheezing is almost resolved VS trends - BP: 97-131/49-89 - Tmax: 98.2 - HR: 52-71x' - SatO2 >88% on NC @4-5LPM Intake and output - UO: 2,200 - 24h balance: -1,680 Lab results - WBC down from 11.72 to 10.68 - Plt up from 332 to 373 - DD down from 1.7 to 0.93 - Na down from 133 to 132 - K up from 4.5 to 5.4 - CO2 down from 33 to 30 - Ferritin mild increase from 713 to 754 - LDH up from 273 to 270 - CRP down from 2.8 to 2.5 - Plan Plan:: Acute on chronic respiratory failure with hypoxemia, multifactorial, stable Acute on chronic ischemic heart failure Coronary artery disease s/p stenting x 2 on 09/2019 Idiopathic pulmonary fibrosis Compensated metabolic alkalosis Remdesivir last dose today Dexamethasone 6mg QD day 6 out of 10 Daily weights Continue O2 supplementation via NC Procalcitonin q48h Pulse ox goal 85-90% Continue vitamin C to complete 10 days Taper down O2 supplementation as tolerated Hyperkalemia - EKG and treatment according to changes Hypertension, controlled Continue home medications PRN Hydralazine Hypoalbuminemia Dietary follow up Hyponatremia/Hypokalemia/Hypomagnesemia,/Hypophosphatemia, resolved PROPHYLAXIS DVT-Lovenox GI- not indicated CODE STATUS: DNR/DNI DISPOSITION: Patient back to baseline O2 requirements. Will follow up with PT for updated recommendations.
[2019-12-18] MEDS: REMDESIVIR 100 MG in Sodium Chloride 0.9% 100 ML IV SCH (15:38)
[2019-12-19] MEDS: Ascorbic Acid 500 MG Tab PO SCH ×4 (04:00→20:40)
[2019-12-19] MEDS: Sodium Chloride/Potassium Chloride Tab PO SCH ×3 (08:25→20:39)
[2019-12-19] MEDS: Clopidogrel 75 MG Tab PO SCH (08:26)
[2019-12-19] MEDS: Aspirin 81 MG Tab.EC PO SCH (08:27)
[2019-12-19] MEDS: Enoxaparin 40 MG/0.4 ML Syringe SUBCUT SCH (08:27)
[2019-12-19] MEDS: Metoprolol Tartrate 25 MG Tab PO SCH ×2 (08:27→20:40)
[2019-12-19] MEDS: Dexamethasone 4 MG Tab PO SCH (08:28)
--- NOTE | 2019-12-19 11:03 | PCM.PN ---
- General Info Date of Service: 12/19/19 Admission Dx/Problem (Free Text): Admission Diagnosis/Problem Admission Diagnosis/Problem Congestive heart failure Subjective Update: Patient states that she is feeling back to baseline. No significant shortness of breath. Last bowel movement was yesterday. She is back on 4 to 5 L of O2 per minute. Functional Status: Reports: Pain Controlled - Review of Systems General: Reports: No Symptoms HEENT: Reports: No Symptoms Pulmonary: Reports: No Symptoms Cardiovascular: Reports: No Symptoms Gastrointestinal: Reports: No Symptoms Musculoskeletal: Reports: No Symptoms Skin: Reports: No Symptoms Neurological: Reports: No Symptoms Psychiatric: Reports: No Symptoms - Patient Data Vitals - Most Recent: Last Vital Signs Temp 98.2 F 12/19/19 08:21 Pulse 63 12/19/19 08:27 Resp 20 12/19/19 08:21 BP 119/59 L 12/19/19 08:27 Pulse Ox 88 L 12/19/19 08:21 Weight - Most Recent: 68.13 kg I&O - Last 24 Hours: Intake & Output 12/18/19 12/19/19 12/19/19 22:59 06:59 14:59 Intake Total 1300 500 Output Total 600 700 200 Balance 700 -200 -200 Lab Results Last 24 Hours: Laboratory Results - last 24 hr 12/19/19 12/19/19 Range/Units 06:39 06:39 WBC 13.95 H (3.98-10.04) K/mm3 RBC 5.02 (3.98-5.22) M/mm3 Hgb 14.6 (11.2-15.7) gm/dl Hct 44.4 (34.1-44.9) % MCV 88.4 (79.4-94.8) fl MCH 29.1 (25.6-32.2) pg MCHC 32.9 (32.2-35.5) g/dl RDW Std Deviation 46.6 H (36.4-46.3) fL Plt Count 342 (182-369) K/mm3 MPV 8.9 L (9.4-12.3) fl Neut % (Auto) 73.4 H (34.0-71.1) % Lymph % (Auto) 15.1 L (19.3-51.7) % [place] % (Auto) 10.2 (4.7-12.5) % Eos % (Auto) 0.1 L (0.7-5.8) Baso % (Auto) 0.1 (0.1-1.2) % Neut # (Auto) 10.25 H (1.56-6.13) K/mm3 Lymph # (Auto) 2.10 (1.18-3.74) K/mm3 [place] # (Auto) 1.42 H (0.24-0.36) K/mm3 Eos # (Auto) 0.02 L (0.04-0.36) K/mm3 Baso # (Auto) 0.01 (0.01-0.08) K/mm3 Manual Slide Review Abnormal smear Sodium 131 L (136-145) mEq/L Potassium 5.2 H (3.5-5.1) mEq/L Chloride 97 L (98-107) mEq/L Carbon Dioxide 34 H (21-32) mEq/L Anion Gap 5.2 (5-15) BUN 20 H (7-18) mg/dL Creatinine 0.7 (0.55-1.02) mg/dL Est Cr Clr Drug Dosing 49.49 mL/min Estimated GFR (MDRD) > 60 (>60) mL/min BUN/Creatinine Ratio 28.6 H (14-18) Glucose 98 (83-115) mg/dL Calcium 8.6 (8.5-10.1) mg/dL Phosphorus 3.2 (2.6-4.7) mg/dL Magnesium 2.3 (1.8-2.4) mg/dl Med Orders - Current: Current Medications Albuterol (Proventil Hfa) 0 gm INH Q6H PRN PRN Reason: Wheezing Ascorbic Acid (Vitamin C) 1,500 mg PO Q6H [facility] Last Admin: 12/19/19 08:25 Dose: 1,500 mg Documented by: Aspirin (Halfprin) 81 mg PO DAILY [facility] Last Admin: 12/19/19 08:27 Dose: 81 mg Documented by: Aspirin (Halfprin) 81 mg PO DAILY [facility] Calcium Carbonate/Glycine (Calcium Carbonate) 600 mg PO DAILY [facility] Clopidogrel Bisulfate (Plavix) 75 mg PO DAILY [facility] Last Admin: 12/19/19 08:26 Dose: 75 mg Documented by: Clopidogrel Bisulfate (Plavix) 75 mg PO DAILY [facility] Dexamethasone (Dexamethasone) 6 mg PO DAILY [facility] Stop: 12/22/19 09:01 Last Admin: 12/19/19 08:28 Dose: 6 mg Documented by: Enoxaparin Sodium (Lovenox) 40 mg SUBCUT DAILY [facility] Last Admin: 12/19/19 08:27 Dose: 40 mg Documented by: Melatonin (Melatonin) 9 mg PO BEDTIME PRN PRN Reason: Insomnia Last Admin: 12/16/19 21:34 Dose: 9 mg Documented by: Metoprolol Tartrate (Lopressor) 12.5 mg PO BID [facility] Last Admin: 12/19/19 08:27 Dose: 12.5 mg Documented by: Non-Formulary Medication (Atorvastatin Calcium) 20 mg PO BEDTIME [facility] Ondansetron HCl (Zofran) 4 mg IV Q6H PRN PRN Reason: Nausea/Vomiting Oral Electrolytes (Thermotabs) 1 each PO TID [facility] Last Admin: 12/19/19 08:25 Dose: 1 each Documented by: Sodium Chloride (Saline Flush) 10 ml FLUSH ASDIRECTED PRN PRN Reason: Keep Vein Open Last Admin: 12/14/19 09:25 Dose: 10 ml Documented by: Discontinued Medications Dexamethasone (Dexamethasone) 6 mg IV DAILY [facility] Stop: 12/21/19 09:01 Last Admin: 12/12/19 10:04 Dose: 6 mg Documented by: Dexamethasone (Dexamethasone) 6 mg IV DAILY [facility] Stop: 12/21/19 09:01 Last Admin: 12/13/19 08:57 Dose: 6 mg Documented by: Furosemide (Lasix) 20 mg IVPUSH NOW ONE Stop: 12/10/19 18:23 Last Admin: 12/10/19 19:07 Dose: 20 mg Documented by: Furosemide (Lasix) 20 mg IVPUSH NOW ONE Stop: 12/11/19 09:10 Last Admin: 12/11/19 09:53 Dose: 20 mg Documented by: Furosemide (Lasix) 20 mg IVPUSH NOW ONE Stop: 12/14/19 10:02 Last Admin: 12/14/19 10:56 Dose: 20 mg Documented by: Sodium Chloride (Normal Saline) 100 mls @ 60 mls/hr IV ASDIRECTED [facility] Last Admin: 12/10/19 16:19 Dose: 60 mls/hr Documented by: Sodium Chloride (Normal Saline) 1,000 mls @ 50 mls/hr IV ASDIRECTED [facility] Last Admin: 12/13/19 04:00 Dose: 50 mls/hr Documented by: REMDESIVIR (EUA) 100 mg/ (Sodium Chloride) 100 mls @ 100 mls/hr IV Q24H [facility] Stop: 12/18/19 16:59 Last Admin: 12/18/19 15:38 Dose: 100 mls/hr Documented by: REMDESIVIR (EUA) 200 mg/ (Sodium Chloride) 250 mls @ 250 mls/hr IV ONETIME ONE Stop: 12/14/19 17:29 Last Admin: 12/14/19 16:24 Dose: 250 mls/hr Documented by: Iopamidol (Isovue-370 (76%)) 100 ml IVPUSH ONETIME ONE Stop: 12/10/19 15:50 Last Admin: 12/10/19 16:18 Dose: 100 ml Documented by: Metoprolol Tartrate (Lopressor) 12.5 mg PO Q12H [facility] Last Admin: 12/12/19 11:12 Dose: Not Given Documented by: Oral Electrolytes (Thermotabs) 1 each PO ONETIME ONE Stop: 12/16/19 17:46 Last Admin: 12/16/19 17:43 Dose: 1 each Documented by: Sodium Chloride (Saline Flush) 10 ml FLUSH ONETIME ONE Stop: 12/10/19 15:50 Last Admin: 12/10/19 16:19 Dose: 10 ml Documented by: - Exam Quality Assessment: Supplemental Oxygen General: Alert, Oriented HEENT: Pupils Equal, Mucous Membr. Moist/[place] Neck: Supple Lungs: Clear to Auscultation, Normal Respiratory Effort Cardiovascular: Regular Rate, Regular Rhythm GI/Abdominal Exam: Normal Bowel Sounds, Soft, Non-Tender, No Distention Extremities: Normal Inspection, Normal Range of Motion, Non-Tender, No Pedal Edema, Normal Capillary Refill Skin: Warm, Dry, Intact Neurological: No New Focal Deficit Psy/Mental Status: Alert, Normal Affect, Normal Mood Sepsis Event Note - Evaluation Sepsis Screening Result: No Definite Risk - Focused Exam Vital Signs: Vital Signs Temp Pulse Resp BP Pulse Ox 12/19/19 08:27 63 119/59 L 12/19/19 08:21 98.2 F 63 20 119/59 L 88 L 12/19/19 05:54 98.2 F 61 24 H 128/69 94 L - Problem List Review Problem List Initiated/Reviewed/Updated: Yes - My Orders Last 24 Hours: My Active Orders 12/19/19 21:00 atorvaSTATin Calcium 20 mg PO BEDTIME 12/20/19 05:11 C-REACTIVE PROTEIN [CHEM] AM CBC WITH AUTO DIFF [HEME] AM CMP [COMPREHENSIVE METABOLIC PN,CMP] [CHEM] AM 12/20/19 09:00 Aspirin [Halfprin] 81 mg PO DAILY Calcium Carbonate 600 mg PO DAILY Clopidogrel [Plavix] 75 mg PO DAILY - Assessment Assessment:: 12/11/19 Came in for worsening shortness of breath and lower extremity edema Chronic O2 dependence at 4 L, recently changed the past 3 weeks Pulse ox on admission 76%--> increased to 6L Labs on admission WBC 10.04, no bands Chemistry: Sodium 127, potassium 3.6, chloride 91, CO2 32, GFR 60 Ferritin 505, LDH 338, d-dimer 0.49, proBNP 3684 ABGs: 7.44/44.3/88/29.4/96.5 Chest x-ray with diffuse increased density on both sides of the chest with concerns for pulmonary edema, enlarged heart VS on admission: BP 141/61(87), HR 72, RR 25, SatO2 76% on 4LPM Home BP management with thiazide, likely causing hyponatremia PLAN CTA chest to r/o pulmonary embolus--> negative for PE Lasix IV now Daily weights Fluid restriction PRN Hydralazine Prealbumin Dietary consult Patient will be admitted on O2 supplementation, diuresis and monitorization. 12/11/19 Worsened respiratory status overnight: Started 4 L/min and dropped to 76% around 7 in the morning increased to 6 and later 10 L/min obtaining a pulse ox of 87% Vital signs MAP: 7590 T-max 97.8 Heart rate 91-110 Pulse ox greater than 76 Intake and output Urine output 1, 550 24-hour balance -1, 250 Lab results WBC up from 10.04-11.99 Platelets down from 219-299 Sodium up from 127 230 Potassium down from 3.6-3.3 Chloride stable at 91 Magnesium 1.7 PLAN Transfer to ICU Replace on BiPAP ABGs in 1 hour Daily weights Fluid restriction Increase dietary salt Replace KCl and magnesium Transferred to ICU 12/12/19 Vital signs BP: 102-135/58-79 T-max 98.3 Heart rate 84-130 Pulse ox >71% Intake and output Urine output 2,525 24-hour balance -2,450 Lab results WBC stable at 11.99-11.53 D-dimer up from 0.49-1 Sodium down from 130-129 Potassium down from 3.3-3.1 Chloride up from 91-92 CO2 up from 30-33 Phosphorus down from 3.2-2.6 Mg from 1.7-1.8 CRP up from 6.2-20.2 proBNP up from 3,684-3,842 Ferritin up from 505-609 LDH down from 338-293 PLAN Repeat COVID test Repeat CT chest Daily weights Fluid restriction Continue O2 supplementation via BiPAP Start Dexamethasone 6mg IV QD x 10 days Procalcitonin today and q48h PRN Hydralazine Increase dietary salt Replace PO4, KCl and magnesium 12/13/[address] chest negative for PE, no worsening of infiltrates Echo from 06/14: Stage 2 diastolic dysfunction LVEF 60-65% Patient's lab and clinical picture are highly suggestive of COVID for which new test will be performed today Vital signs BP: 107-128/59-78 T-max 98.3 Heart rate 85-112 Pulse ox >84% Intake and output Urine output 1,850 24-hour balance -2,360 Weight down from 69.4kg to 67.13 Lab results WBC down from 11.53 to 10.98 D-dimer stable from 0.99 to 1 Sodium up from 129-132 Potassium up from 3.1-3.5 Mg up from 1.8 to 2 CRP down from 20.2-17.5 proBNP up from 3,842-4,934 Ferritin up from 609-743 LDH up from 293-392 PLAN Repeat COVID test, send out Daily weights Fluid restriction Continue O2 supplementation via BiPAP (01/16 @ 50%) Continue Dexamethasone 6mg IV QD x 10 days Procalcitonin q48h COVID labs in AM ABGs in AM Continue home medications PRN Hydralazine Increased dietary salt Replace PO4, KCl and magnesium 12/14/19 Patient is not improving as I would hope, this is likely because she has viral pneumonia and is just not testing positive for COVID Will discuss case with ID to evaluate if they agree with me starting patient on Remdesivir VS trends - MAP 82-104 - Tmax 98 - HR 74-91 - SatO2 >82% Lab results - WBC up from 10.98 to 13.03 ( 1% bands) - DD up from 0.99 to 1.11 - Na up from 132 to 134 - CO2 stable at 33 - Ferritin up from 735 to 835 - CRP down from 17.5 to 8.2 - BNP down from 4934 to 4780 PLAN Repeat COVID test, results pending Consult ID for recommendations on starting COVID treatment Daily weights Fluid restriction Continue O2 supplementation via BiPAP (01/16 @ 50%) Continue Dexamethasone 6mg IV QD x 10 days Procalcitonin q48h COVID labs in AM ABGs in AM Lasix 20mgIV push Prealbumin Dietary follow up 12/15/19 Dropped to 78 when she went to take a shower, FiO2 increased to 60% and Sat went up to 93%--> turned back down to 50 Consulted with ID specialty last evening who recommended start patient on Remdesivir VS trends - MAP 70-95 - Tmax 98 - HR 61-71 - SatO2 >89% Intake and output Urine output 1,770 24-hour balance -380 Lab results - WBC down from 13.03 to 11.74 - Neutrophil % down from 88 to 66 - DD up from 1.11 to 1.89 - Na stable at 134 - CO2 stable at 33 - PO4 down from 3.1 to 2.3 - Ferritin down from 835 to 720 - LDH yp from 258 to 263 - CRP down from 8.2 to 4.5 - BNP down from 4180 to 3410 12/16/19 Patient had discussed with me how she had been seen by a rn social services recently and they had told her she needed a blood test prior to starting a medication for her pulmonary fibrosis - Records were requested from Pulmonary (Dr. Myrick) and cardiology (Dr. Mendiola) - Left heart cath: - s/p rotational atherectomy - Placement of DEX to mid RCA and proximal LAD - Known occlusion of the marginal branch - PFTs: FEV1- 74%, FVC-52%, TLC-51%, DLCO-31% - Moderate restriction - interstitial - Severe diffusion defect - Completed 18% of 6 minute walk test - Planning to start patient on Ofev (Nintedanib) --> needs LFTs prior to starting Inflammatory markers continue to trend down Significant improvement in oxygenation since Remdesivir was started Her O2 requirements have decreased and patient spent most of the day yesterday with NC and tolerated well all day at 5LPM since 4AM VS trends - MAP 70-95 - Tmax 97.9 - HR 61-71 - SatO2 >89% Lab results - WBC down from 11.74 to 8.41 - DD down from 1.89 to 1.15 - Na down from 134 to 132 - K up from 3.9 to 4.6 - CO2 up from 33 to 35 - PO4 up from 2.3 to 3.3 - Ferritin down from 720 to 687 - CRP down from 4.2 to 4.5 - BNP up from 3410 to 4099 PLAN Remdesivir day 3 Dexamethasone 6mg QD day 4 Daily weights Continue O2 supplementation via NC and BiPAP Procalcitonin q48h Pulse ox goal 85-90% Start vitamin C to complete 10 days Taper down O2 supplementation as tolerated 12/17/19 Sleeping better Has been on nasal canula only for more than 24 hours, currently only on 5LPM No longer using BiPAP since 12/13 at 9AM Pulse ox does drop on exertion but overall has stayed above 88% Is recovering faster now than initially after exertion Patient declines worsening of symptoms VS trends - MAP 72-95 - Tmax 98 - HR 63-72 - SatO2 >88% Lab results - WBC up from 8.41 to 11.72 - DD up from 1.15 to 1.7 - Na up from 132 to 133 - CO2 down from 35 to 33 - CRP down from 4.2 to 2.8 - BNP down from 4099 to 3663 - Ferritin mild increase from 687 to 713 PLAN Remdesivir day 4 Dexamethasone 6mg QD day 5 Daily weights Continue O2 supplementation via NC Procalcitonin q48h Pulse ox goal 85-90% Continue vitamin C to complete 10 days Taper down O2 supplementation as tolerated PRN Hydralazine Dietary follow up Patient is stable enough to be downgraded to med surg. PT is recommending placement to SNF, however her exertion tolerance is changing so will continue current regimen. Will have PT evaluate on a daily basis to trend progress and adjust recommendations. Application has been sent to [facility] in the meantime. 12/18/19 Physical exam with significant interval improvement - Air entry is audible throughout lung yoo - End expiratory wheezing is almost resolved VS trends - BP: 97-131/49-89 - Tmax: 98.2 - HR: 52-71x' - SatO2 >88% on NC @4-5LPM Intake and output - UO: 2,200 - 24h balance: -1,680 Lab results - WBC down from 11.72 to 10.68 - Plt up from 332 to 373 - DD down from 1.7 to 0.93 - Na down from 133 to 132 - K up from 4.5 to 5.4 - CO2 down from 33 to 30 - Ferritin mild increase from 713 to 754 - LDH up from 273 to 270 - CRP down from 2.8 to 2.5 12/19/2019 Patient is at baseline. Lungs are clear. * Blood pressure well controlled, * afebrile, * heart rate in the 60s, * respiratory rate 20 * Oxygenation between 88 and 94% on 4 L. * White count increasing likely secondary to steroids. * WBC 14 * Hyperkalemia improved from yesterday. Potassium 5.2. * Hyponatremia stable at 131 - Plan Plan:: Acute on chronic respiratory failure with hypoxemia, multifactorial, stable Acute on chronic ischemic heart failure Coronary artery disease s/p stenting x 2 on 09/2019 Idiopathic pulmonary fibrosis Compensated metabolic alkalosis-resolved Remdesivir -finished Dexamethasone 6mg QD day 7 out of 10 Daily weights Continue O2 supplementation via NC Procalcitonin q48h Pulse ox goal 85-90% Continue vitamin C to complete 10 days Taper down O2 supplementation as tolerated -Repeat CBC, CMP, magnesium in the morning Hyperkalemia -improved -Continue to monitor Hypertension, controlled Continue home medications PRN Hydralazine Hypoalbuminemia Dietary follow up Hyponatremia-stable Hypomagnesemia,/Hypophosphatemia, resolved PROPHYLAXIS DVT-Lovenox GI- not indicated CODE STATUS: DNR/DNI DISPOSITION: Patient back to baseline O2 requirements. Will follow up with PT for updated recommendations. Discharge likely in 2 days secondary to long weekend.
[2019-12-19] MEDS: Simvastatin 20 MG Tab PO SCH (20:40)
[2019-12-20] MEDS: Ascorbic Acid 500 MG Tab PO SCH ×4 (03:30→20:05)
[2019-12-20] MEDS: Sodium Chloride/Potassium Chloride Tab PO SCH ×3 (08:25→20:05)
[2019-12-20] MEDS: Clopidogrel 75 MG Tab PO SCH (08:25)
[2019-12-20] MEDS: Calcium Carbonate 600 MG Tab PO SCH (08:25)
[2019-12-20] MEDS: Dexamethasone 4 MG Tab PO SCH (08:26)
[2019-12-20] MEDS: Metoprolol Tartrate 25 MG Tab PO SCH ×2 (08:26→20:04)
[2019-12-20] MEDS: Aspirin 81 MG Tab.EC PO SCH (08:26)
[2019-12-20] MEDS: Enoxaparin 40 MG/0.4 ML Syringe SUBCUT SCH (08:29)
[2019-12-20] MEDS ORDERED: Furosemide 20 MG/2 ML VIAL IVPUSH ONE ×2 (08:50→15:00)
--- NOTE | 2019-12-20 08:52 | PCM.PN ---
- General Info Date of Service: 12/20/19 Admission Dx/Problem (Free Text): Admission Diagnosis/Problem Admission Diagnosis/Problem Congestive heart failure Subjective Update: Patient states that she still is short of breath. She is currently on 5 L/min via nasal cannula of O2 which is 1 L greater than her baseline. Appetite remains decreased eating 40 to 90% of her meals yesterday. She did have a bowel movement yesterday. Functional Status: Reports: Pain Controlled - Review of Systems General: Reports: Weakness HEENT: Reports: No Symptoms Pulmonary: Reports: Shortness of Breath Cardiovascular: Reports: No Symptoms Gastrointestinal: Reports: Decreased Appetite Neurological: Reports: No Symptoms - Patient Data Vitals - Most Recent: Last Vital Signs Temp 97.2 F 12/20/19 07:56 Pulse 65 12/20/19 08:26 Resp 20 12/20/19 07:56 BP 119/89 12/20/19 08:26 Pulse Ox 89 L 12/20/19 07:56 Weight - Most Recent: 67.086 kg I&O - Last 24 Hours: Intake & Output 12/19/19 12/20/19 12/20/19 22:59 06:59 14:59 Intake Total 540 400 Output Total 200 750 Balance 340 -350 Lab Results Last 24 Hours: Laboratory Results - last 24 hr 12/20/19 12/20/19 12/20/19 Range/Units 04:25 04:25 04:25 WBC 13.11 H (3.98-10.04) K/mm3 RBC 4.82 (3.98-5.22) M/mm3 Hgb 13.9 (11.2-15.7) gm/dl Hct 42.3 (34.1-44.9) % MCV 87.8 (79.4-94.8) fl MCH 28.8 (25.6-32.2) pg MCHC 32.9 (32.2-35.5) g/dl RDW Std Deviation 46.6 H (36.4-46.3) fL Plt Count 337 (182-369) K/mm3 MPV 9.4 (9.4-12.3) fl Neut % (Auto) 78.4 H (34.0-71.1) % Lymph % (Auto) 11.8 L (19.3-51.7) % [place] % (Auto) 8.7 (4.7-12.5) % Eos % (Auto) 0 L (0.7-5.8) Baso % (Auto) 0.2 (0.1-1.2) % Neut # (Auto) 10.28 H (1.56-6.13) K/mm3 Lymph # (Auto) 1.55 (1.18-3.74) K/mm3 [place] # (Auto) 1.14 H (0.24-0.36) K/mm3 Eos # (Auto) 0.00 L (0.04-0.36) K/mm3 Baso # (Auto) 0.02 (0.01-0.08) K/mm3 Manual Slide Review Abnormal smear D-Dimer, Quantitative 0.37 (0.19-0.50) mg/L Sodium 129 L (136-145) mEq/L Potassium 4.4 (3.5-5.1) mEq/L Chloride 97 L (98-107) mEq/L Carbon Dioxide 32 (21-32) mEq/L Anion Gap 4.4 L (5-15) BUN 22 H (7-18) mg/dL Creatinine 0.7 (0.55-1.02) mg/dL Est Cr Clr Drug Dosing 49.49 mL/min Estimated GFR (MDRD) > 60 (>60) mL/min BUN/Creatinine Ratio 31.4 H (14-18) Glucose 130 H (83-115) mg/dL Calcium 8.1 L (8.5-10.1) mg/dL Total Bilirubin 0.5 (0.2-1.0) mg/dL AST 27 (15-37) U/L ALT 47 (14-59) U/L Alkaline Phosphatase 80 (46-116) U/L C-Reactive Protein 1.4 H* (<1.0) mg/dL Total Protein 5.9 L (6.4-8.2) g/dl Albumin 2.5 L (3.4-5.0) g/dl Globulin 3.4 gm/dL Albumin/Globulin Ratio 0.7 L (1-2) Med Orders - Current: Current Medications Albuterol (Proventil Hfa) 0 gm INH Q6H PRN PRN Reason: Wheezing Ascorbic Acid (Vitamin C) 1,500 mg PO Q6H [facility] Last Admin: 12/20/19 08:25 Dose: 1,500 mg Documented by: Aspirin (Halfprin) 81 mg PO DAILY [facility] Last Admin: 12/20/19 08:26 Dose: 81 mg Documented by: Calcium Carbonate/Glycine (Calcium Carbonate) 600 mg PO DAILY [facility] Last Admin: 12/20/19 08:25 Dose: 600 mg Documented by: Clopidogrel Bisulfate (Plavix) 75 mg PO DAILY [facility] Last Admin: 12/20/19 08:25 Dose: 75 mg Documented by: Dexamethasone (Dexamethasone) 6 mg PO DAILY [facility] Stop: 12/22/19 09:01 Last Admin: 12/20/19 08:26 Dose: 6 mg Documented by: Enoxaparin Sodium (Lovenox) 40 mg SUBCUT DAILY [facility] Last Admin: 12/20/19 08:29 Dose: 40 mg Documented by: Melatonin (Melatonin) 9 mg PO BEDTIME PRN PRN Reason: Insomnia Last Admin: 12/16/19 21:34 Dose: 9 mg Documented by: Metoprolol Tartrate (Lopressor) 12.5 mg PO BID [facility] Last Admin: 12/20/19 08:26 Dose: 12.5 mg Documented by: Ondansetron HCl (Zofran) 4 mg IV Q6H PRN PRN Reason: Nausea/Vomiting Oral Electrolytes (Thermotabs) 1 each PO TID [facility] Last Admin: 12/20/19 08:25 Dose: 1 each Documented by: Simvastatin (Zocor) 20 mg PO BEDTIME [facility] Last Admin: 12/19/19 20:40 Dose: 20 mg Documented by: Sodium Chloride (Saline Flush) 10 ml FLUSH ASDIRECTED PRN PRN Reason: Keep Vein Open Last Admin: 12/14/19 09:25 Dose: 10 ml Documented by: Discontinued Medications Aspirin (Halfprin) 81 mg PO DAILY [facility] Last Admin: 12/19/19 08:27 Dose: 81 mg Documented by: Clopidogrel Bisulfate (Plavix) 75 mg PO DAILY [facility] Last Admin: 12/19/19 08:26 Dose: 75 mg Documented by: Dexamethasone (Dexamethasone) 6 mg IV DAILY [facility] Stop: 12/21/19 09:01 Last Admin: 12/12/19 10:04 Dose: 6 mg Documented by: Dexamethasone (Dexamethasone) 6 mg IV DAILY [facility] Stop: 12/21/19 09:01 Last Admin: 12/13/19 08:57 Dose: 6 mg Documented by: Furosemide (Lasix) 20 mg IVPUSH NOW ONE Stop: 12/10/19 18:23 Last Admin: 12/10/19 19:07 Dose: 20 mg Documented by: Furosemide (Lasix) 20 mg IVPUSH NOW ONE Stop: 12/11/19 09:10 Last Admin: 12/11/19 09:53 Dose: 20 mg Documented by: Furosemide (Lasix) 20 mg IVPUSH NOW ONE Stop: 12/14/19 10:02 Last Admin: 12/14/19 10:56 Dose: 20 mg Documented by: Furosemide (Lasix) 20 mg IVPUSH ONETIME ONE Stop: 12/20/19 08:51 Sodium Chloride (Normal Saline) 100 mls @ 60 mls/hr IV ASDIRECTED [facility] Last Admin: 12/10/19 16:19 Dose: 60 mls/hr Documented by: Sodium Chloride (Normal Saline) 1,000 mls @ 50 mls/hr IV ASDIRECTED [facility] Last Admin: 12/13/19 04:00 Dose: 50 mls/hr Documented by: REMDESIVIR (EUA) 100 mg/ (Sodium Chloride) 100 mls @ 100 mls/hr IV Q24H [facility] Stop: 12/18/19 16:59 Last Admin: 12/18/19 15:38 Dose: 100 mls/hr Documented by: REMDESIVIR (EUA) 200 mg/ (Sodium Chloride) 250 mls @ 250 mls/hr IV ONETIME ONE Stop: 12/14/19 17:29 Last Admin: 12/14/19 16:24 Dose: 250 mls/hr Documented by: Iopamidol (Isovue-370 (76%)) 100 ml IVPUSH ONETIME ONE Stop: 12/10/19 15:50 Last Admin: 12/10/19 16:18 Dose: 100 ml Documented by: Metoprolol Tartrate (Lopressor) 12.5 mg PO Q12H [facility] Last Admin: 12/12/19 11:12 Dose: Not Given Documented by: Oral Electrolytes (Thermotabs) 1 each PO ONETIME ONE Stop: 12/16/19 17:46 Last Admin: 12/16/19 17:43 Dose: 1 each Documented by: Sodium Chloride (Saline Flush) 10 ml FLUSH ONETIME ONE Stop: 12/10/19 15:50 Last Admin: 12/10/19 16:19 Dose: 10 ml Documented by: - Exam Quality Assessment: Supplemental Oxygen General: Alert, Oriented HEENT: Pupils Equal, Mucous Membr. Moist/[place] Neck: Supple Lungs: Normal Respiratory Effort, Rales (bibasilar) Cardiovascular: Regular Rate, Regular Rhythm GI/Abdominal Exam: Soft, Non-Tender Extremities: Normal Capillary Refill, Pedal Edema (1+) Peripheral Pulses: 1+: Dorsalis Pedis (L), Dorsalis Pedis (R) Skin: Warm, Dry, Intact Psy/Mental Status: Alert, Normal Affect, Normal Mood Sepsis Event Note - Evaluation Sepsis Screening Result: No Definite Risk - Focused Exam Vital Signs: Vital Signs Temp Pulse Resp BP Pulse Ox 12/20/19 08:26 65 119/89 12/20/19 07:56 97.2 F 65 20 119/89 89 L 12/20/19 04:38 98.2 F 65 20 125/72 - Problem List & Annotations (1) Acute heart failure SNOMED Code(s): 91425352 Code(s): I50.9 - HEART FAILURE, UNSPECIFIED Status: Acute Current Visit: Yes (2) Acute on chronic respiratory failure with hypoxemia SNOMED Code(s): 97009162812331436 Code(s): J96.21 - ACUTE AND CHRONIC RESPIRATORY FAILURE WITH HYPOXIA Status: Acute Current Visit: Yes (3) Grade II diastolic dysfunction SNOMED Code(s): 7446846 Code(s): I51.9 - HEART DISEASE, UNSPECIFIED Status: Acute Current Visit: Yes (4) Hypertension SNOMED Code(s): 23582822 Code(s): I10 - ESSENTIAL (PRIMARY) HYPERTENSION Status: Acute Current Visit: Yes (5) Hypoalbuminemia SNOMED Code(s): 487457915 Code(s): E88.09 - OTH DISORDERS OF PLASMA-PROTEIN METABOLISM, NEC Status: Acute Current Visit: Yes (6) Hypoxia SNOMED Code(s): 675833711 Code(s): R09.02 - HYPOXEMIA Status: Acute Current Visit: Yes (7) Idiopathic pulmonary fibrosis Status: Acute Current Visit: Yes - Problem List Review Problem List Initiated/Reviewed/Updated: Yes - My Orders Last 24 Hours: My Active Orders 12/19/19 11:22 Remove Chris Catheter [Urinary Catheter Removal] [RC] PER UNIT ROUTINE 12/19/19 21:00 Simvastatin [Zocor] 20 mg PO BEDTIME 12/20/19 09:00 Aspirin [Halfprin] 81 mg PO DAILY Calcium Carbonate 600 mg PO DAILY Clopidogrel [Plavix] 75 mg PO DAILY 12/21/19 05:11 D Dimer [D-DIMER QUANTITATIVE] [COAG] AM 12/21/19 08:00 CXR [Chest 1V Frontal] [CR] Routine 12/22/19 05:11 D Dimer [D-DIMER QUANTITATIVE] [COAG] AM - Assessment Assessment:: 12/11/19 Came in for worsening shortness of breath and lower extremity edema Chronic O2 dependence at 4 L, recently changed the past 3 weeks Pulse ox on admission 76%--> increased to 6L Labs on admission WBC 10.04, no bands Chemistry: Sodium 127, potassium 3.6, chloride 91, CO2 32, GFR 60 Ferritin 505, LDH 338, d-dimer 0.49, proBNP 3684 ABGs: 7.44/44.3/88/29.4/96.5 Chest x-ray with diffuse increased density on both sides of the chest with concerns for pulmonary edema, enlarged heart VS on admission: BP 141/61(87), HR 72, RR 25, SatO2 76% on 4LPM Home BP management with thiazide, likely causing hyponatremia PLAN CTA chest to r/o pulmonary embolus--> negative for PE Lasix IV now Daily weights Fluid restriction PRN Hydralazine Prealbumin Dietary consult Patient will be admitted on O2 supplementation, diuresis and monitorization. 12/11/19 Worsened respiratory status overnight: Started 4 L/min and dropped to 76% around 7 in the morning increased to 6 and later 10 L/min obtaining a pulse ox of 87% Vital signs MAP: 7590 T-max 97.8 Heart rate 91-110 Pulse ox greater than 76 Intake and output Urine output 1, 550 24-hour balance -1, 250 Lab results WBC up from 10.04-11.99 Platelets down from 219-299 Sodium up from 127 230 Potassium down from 3.6-3.3 Chloride stable at 91 Magnesium 1.7 PLAN Transfer to ICU Replace on BiPAP ABGs in 1 hour Daily weights Fluid restriction Increase dietary salt Replace KCl and magnesium Transferred to ICU 12/12/19 Vital signs BP: 102-135/58-79 T-max 98.3 Heart rate 84-130 Pulse ox >71% Intake and output Urine output 2,525 24-hour balance -2,450 Lab results WBC stable at 11.99-11.53 D-dimer up from 0.49-1 Sodium down from 130-129 Potassium down from 3.3-3.1 Chloride up from 91-92 CO2 up from 30-33 Phosphorus down from 3.2-2.6 Mg from 1.7-1.8 CRP up from 6.2-20.2 proBNP up from 3,684-3,842 Ferritin up from 505-609 LDH down from 338-293 PLAN Repeat COVID test Repeat CT chest Daily weights Fluid restriction Continue O2 supplementation via BiPAP Start Dexamethasone 6mg IV QD x 10 days Procalcitonin today and q48h PRN Hydralazine Increase dietary salt Replace PO4, KCl and magnesium 12/13/[address] chest negative for PE, no worsening of infiltrates Echo from 06/14: Stage 2 diastolic dysfunction LVEF 60-65% Patient's lab and clinical picture are highly suggestive of COVID for which new test will be performed today Vital signs BP: 107-128/59-78 T-max 98.3 Heart rate 85-112 Pulse ox >84% Intake and output Urine output 1,850 24-hour balance -2,360 Weight down from 69.4kg to 67.13 Lab results WBC down from 11.53 to 10.98 D-dimer stable from 0.99 to 1 Sodium up from 129-132 Potassium up from 3.1-3.5 Mg up from 1.8 to 2 CRP down from 20.2-17.5 proBNP up from 3,842-4,934 Ferritin up from 609-743 LDH up from 293-392 PLAN Repeat COVID test, send out Daily weights Fluid restriction Continue O2 supplementation via BiPAP (01/16 @ 50%) Continue Dexamethasone 6mg IV QD x 10 days Procalcitonin q48h COVID labs in AM ABGs in AM Continue home medications PRN Hydralazine Increased dietary salt Replace PO4, KCl and magnesium 12/14/19 Patient is not improving as I would hope, this is likely because she has viral pneumonia and is just not testing positive for COVID Will discuss case with ID to evaluate if they agree with me starting patient on Remdesivir VS trends - MAP 82-104 - Tmax 98 - HR 74-91 - SatO2 >82% Lab results - WBC up from 10.98 to 13.03 ( 1% bands) - DD up from 0.99 to 1.11 - Na up from 132 to 134 - CO2 stable at 33 - Ferritin up from 735 to 835 - CRP down from 17.5 to 8.2 - BNP down from 4934 to 4780 PLAN Repeat COVID test, results pending Consult ID for recommendations on starting COVID treatment Daily weights Fluid restriction Continue O2 supplementation via BiPAP (01/16 @ 50%) Continue Dexamethasone 6mg IV QD x 10 days Procalcitonin q48h COVID labs in AM ABGs in AM Lasix 20mgIV push Prealbumin Dietary follow up 12/15/19 Dropped to 78 when she went to take a shower, FiO2 increased to 60% and Sat went up to 93%--> turned back down to 50 Consulted with ID specialty last evening who recommended start patient on Remdesivir VS trends - MAP 70-95 - Tmax 98 - HR 61-71 - SatO2 >89% Intake and output Urine output 1,770 24-hour balance -380 Lab results - WBC down from 13.03 to 11.74 - Neutrophil % down from 88 to 66 - DD up from 1.11 to 1.89 - Na stable at 134 - CO2 stable at 33 - PO4 down from 3.1 to 2.3 - Ferritin down from 835 to 720 - LDH yp from 258 to 263 - CRP down from 8.2 to 4.5 - BNP down from 4180 to 3410 12/16/19 Patient had discussed with me how she had been seen by a candy cutter machine recently and they had told her she needed a blood test prior to starting a medication for her pulmonary fibrosis - Records were requested from Pulmonary (Dr. Myrick) and cardiology (Dr. Mendiola) - Left heart cath: - s/p rotational atherectomy - Placement of DEX to mid RCA and proximal LAD - Known occlusion of the marginal branch - PFTs: FEV1- 74%, FVC-52%, TLC-51%, DLCO-31% - Moderate restriction - interstitial - Severe diffusion defect - Completed 18% of 6 minute walk test - Planning to start patient on Ofev (Nintedanib) --> needs LFTs prior to starting Inflammatory markers continue to trend down Significant improvement in oxygenation since Remdesivir was started Her O2 requirements have decreased and patient spent most of the day yesterday with NC and tolerated well all day at 5LPM since 4AM VS trends - MAP 70-95 - Tmax 97.9 - HR 61-71 - SatO2 >89% Lab results - WBC down from 11.74 to 8.41 - DD down from 1.89 to 1.15 - Na down from 134 to 132 - K up from 3.9 to 4.6 - CO2 up from 33 to 35 - PO4 up from 2.3 to 3.3 - Ferritin down from 720 to 687 - CRP down from 4.2 to 4.5 - BNP up from 3410 to 4099 PLAN Remdesivir day 3 Dexamethasone 6mg QD day 4 Daily weights Continue O2 supplementation via NC and BiPAP Procalcitonin q48h Pulse ox goal 85-90% Start vitamin C to complete 10 days Taper down O2 supplementation as tolerated 12/17/19 Sleeping better Has been on nasal canula only for more than 24 hours, currently only on 5LPM No longer using BiPAP since 12/13 at 9AM Pulse ox does drop on exertion but overall has stayed above 88% Is recovering faster now than initially after exertion Patient declines worsening of symptoms VS trends - MAP 72-95 - Tmax 98 - HR 63-72 - SatO2 >88% Lab results - WBC up from 8.41 to 11.72 - DD up from 1.15 to 1.7 - Na up from 132 to 133 - CO2 down from 35 to 33 - CRP down from 4.2 to 2.8 - BNP down from 4099 to 3663 - Ferritin mild increase from 687 to 713 PLAN Remdesivir day 4 Dexamethasone 6mg QD day 5 Daily weights Continue O2 supplementation via NC Procalcitonin q48h Pulse ox goal 85-90% Continue vitamin C to complete 10 days Taper down O2 supplementation as tolerated PRN Hydralazine Dietary follow up Patient is stable enough to be downgraded to med surg. PT is recommending placement to SNF, however her exertion tolerance is changing so will continue current regimen. Will have PT evaluate on a daily basis to trend progress and adjust recommendations. Application has been sent to [facility] in the meantime. 12/18/19 Physical exam with significant interval improvement - Air entry is audible throughout lung yoo - End expiratory wheezing is almost resolved VS trends - BP: 97-131/49-89 - Tmax: 98.2 - HR: 52-71x' - SatO2 >88% on NC @4-5LPM Intake and output - UO: 2,200 - 24h balance: -1,680 Lab results - WBC down from 11.72 to 10.68 - Plt up from 332 to 373 - DD down from 1.7 to 0.93 - Na down from 133 to 132 - K up from 4.5 to 5.4 - CO2 down from 33 to 30 - Ferritin mild increase from 713 to 754 - LDH up from 273 to 270 - CRP down from 2.8 to 2.5 12/19/2019 Patient is at baseline. Lungs are clear. * Blood pressure well controlled, * afebrile, * heart rate in the 60s, * respiratory rate 20 * Oxygenation between 88 and 94% on 4 L. * White count increasing likely secondary to steroids. * WBC 14 * Hyperkalemia improved from yesterday. Potassium 5.2. * Hyponatremia stable at 131 12/20/2019 Patient had increased oxygen requirement to 5 L nasal cannula. It appears she is volume overloaded with mildly increased shortness of breath and rales in her bases. Generally her lab work is either stable or slightly improved. Her hyponatremia worsening does suggest some volume overload. * Blood pressure remains well controlled, * Afebrile * heart rate in the 60s and 70s * respiratory rate stable at 20 * pulse oximetry in the low 90s and upper 80s on 5 L * WBC stable at 13 * Potassium normalized at 4.4 * Sodium decreased to 129 from 131 * D-dimer now normal at 0.37 * C-reactive protein decrease to 1.4 - Plan Plan:: Acute on chronic respiratory failure with hypoxemia, multifactorial, stable Acute on chronic ischemic heart failure-deteriorated Coronary artery disease s/p stenting x 2 on 09/2019 Idiopathic pulmonary fibrosis Compensated metabolic alkalosis-resolved Lasix 20 mg IV this morning and afternoon. Follow respiratory status closely. -Remdesivir -finished Dexamethasone 6mg QD day 8 out of 10 Daily weights Continue O2 supplementation via NC. Goal to decrease back to 4 L/min Procalcitonin q48h Pulse ox goal 85-90% Continue vitamin C to complete 10 days Taper down O2 supplementation as tolerated -Repeat BMP and magnesium in the morning Hyperkalemia -resolved -Continue to monitor Hypertension, controlled Continue home medications PRN Hydralazine Hypoalbuminemia Dietary follow up Hyponatremia-deteriorated Hypomagnesemia,/Hypophosphatemia, resolved PROPHYLAXIS DVT-Lovenox GI- not indicated CODE STATUS: DNR/DNI DISPOSITION: Patient back to baseline O2 requirements. Will follow up with PT for updated recommendations. Discharge likely in 2 days secondary to long weekend.
--- NOTE | 2019-12-20 15:02 | CR ---
Chest: Portable view of the chest was obtained. Comparison: Prior chest x-ray of 12/10/19. Increased central lung markings are seen which are improved from previous chest x-ray. Findings have not returned to baseline study of 06/25/15. Heart is slightly enlarged. Bony structures are grossly intact. Impression: 1. Increased central lung markings improved from prior chest x-ray but not yet to baseline study. Findings most likely due to mild persisting CHF. Diagnostic code #3 This report was dictated in MDT
[2019-12-20] MEDS: Simvastatin 20 MG Tab PO SCH (20:05)
[2019-12-20] MEDS: Melatonin 3 MG Tab PO PRN (20:05)
[2019-12-21] MEDS: Ascorbic Acid 500 MG Tab PO SCH ×4 (03:58→20:03)
[2019-12-21] MEDS: Calcium Carbonate 600 MG Tab PO SCH (09:04)
[2019-12-21] MEDS: Sodium Chloride/Potassium Chloride Tab PO SCH ×3 (09:05→20:03)
[2019-12-21] MEDS: Clopidogrel 75 MG Tab PO SCH (09:06)
[2019-12-21] MEDS: Aspirin 81 MG Tab.EC PO SCH (09:07)
[2019-12-21] MEDS: Dexamethasone 4 MG Tab PO SCH (09:07)
[2019-12-21] MEDS: Metoprolol Tartrate 25 MG Tab PO SCH ×2 (09:13→20:03)
[2019-12-21] MEDS: Enoxaparin 40 MG/0.4 ML Syringe SUBCUT SCH (09:14)
[2019-12-21] MEDS ORDERED: Furosemide 20 MG/2 ML VIAL IVPUSH ONE (10:00)
--- NOTE | 2019-12-21 11:35 | PCM.PN ---
- General Info Date of Service: 12/21/19 Admission Dx/Problem (Free Text): Admission Diagnosis/Problem Admission Diagnosis/Problem Congestive heart failure Subjective Update: Patient states that although she is tired she is generally better. Unfortunately, when she is doing any activity her oxygen drops. At rest overnight she was on her baseline 4 L, but this morning after using the bedside commode and sitting in the chair she was increased to 6 L to recover. Oxygenation improved yesterday significantly after getting 2 doses of Lasix 20 mg IV. Patient has not had a bowel movement since the fourth. Functional Status: Reports: Pain Controlled - Review of Systems General: Reports: No Symptoms HEENT: Reports: No Symptoms Pulmonary: Reports: No Symptoms Cardiovascular: Reports: No Symptoms Gastrointestinal: Reports: No Symptoms Musculoskeletal: Reports: No Symptoms Skin: Reports: No Symptoms Neurological: Reports: No Symptoms Psychiatric: Reports: No Symptoms - Patient Data Vitals - Most Recent: Last Vital Signs Temp 97.9 F 12/21/19 03:59 Pulse 68 12/21/19 09:13 Resp 20 12/21/19 04:37 BP 107/60 12/21/19 09:13 Pulse Ox 90 L 12/21/19 09:02 Weight - Most Recent: 66.95 kg I&O - Last 24 Hours: Intake & Output 12/20/19 12/21/19 12/21/19 22:59 06:59 14:59 Intake Total 600 600 420 Output Total 1225 600 Balance -625 0 420 Lab Results Last 24 Hours: Laboratory Results - last 24 hr 12/21/19 12/21/19 Range/Units 05:35 05:35 WBC 14.27 H (3.98-10.04) K/mm3 RBC 5.09 (3.98-5.22) M/mm3 Hgb 14.8 (11.2-15.7) gm/dl Hct 44.6 (34.1-44.9) % MCV 87.6 (79.4-94.8) fl MCH 29.1 (25.6-32.2) pg MCHC 33.2 (32.2-35.5) g/dl RDW Std Deviation 47.1 H (36.4-46.3) fL Plt Count 336 (182-369) K/mm3 MPV 9.8 (9.4-12.3) fl Neut % (Auto) 75.1 H (34.0-71.1) % Lymph % (Auto) 12.1 L (19.3-51.7) % [place] % (Auto) 11.3 (4.7-12.5) % Eos % (Auto) 0.1 L (0.7-5.8) Baso % (Auto) 0.1 (0.1-1.2) % Neut # (Auto) 10.72 H (1.56-6.13) K/mm3 Lymph # (Auto) 1.72 (1.18-3.74) K/mm3 [place] # (Auto) 1.61 H (0.24-0.36) K/mm3 Eos # (Auto) 0.02 L (0.04-0.36) K/mm3 Baso # (Auto) 0.01 (0.01-0.08) K/mm3 Manual Slide Review Abnormal smear Sodium 130 L (136-145) mEq/L Potassium 4.1 (3.5-5.1) mEq/L Chloride 92 L (98-107) mEq/L Carbon Dioxide 36 H (21-32) mEq/L Anion Gap 6.1 (5-15) BUN 28 H (7-18) mg/dL Creatinine 1.0 (0.55-1.02) mg/dL Est Cr Clr Drug Dosing 34.64 mL/min Estimated GFR (MDRD) 53 (>60) mL/min BUN/Creatinine Ratio 28.0 H (14-18) Glucose 144 H (83-115) mg/dL Calcium 8.6 (8.5-10.1) mg/dL Med Orders - Current: Current Medications Albuterol (Proventil Hfa) 0 gm INH Q6H PRN PRN Reason: Wheezing Ascorbic Acid (Vitamin C) 1,500 mg PO Q6H [facility] Last Admin: 12/21/19 09:03 Dose: 1,500 mg Documented by: Aspirin (Halfprin) 81 mg PO DAILY [facility] Last Admin: 12/21/19 09:07 Dose: 81 mg Documented by: Calcium Carbonate/Glycine (Calcium Carbonate) 600 mg PO DAILY [facility] Last Admin: 12/21/19 09:04 Dose: 600 mg Documented by: Clopidogrel Bisulfate (Plavix) 75 mg PO DAILY [facility] Last Admin: 12/21/19 09:06 Dose: 75 mg Documented by: Dexamethasone (Dexamethasone) 6 mg PO DAILY [facility] Stop: 12/22/19 09:01 Last Admin: 12/21/19 09:07 Dose: 6 mg Documented by: Enoxaparin Sodium (Lovenox) 40 mg SUBCUT DAILY [facility] Last Admin: 12/21/19 09:14 Dose: 40 mg Documented by: Melatonin (Melatonin) 9 mg PO BEDTIME PRN PRN Reason: Insomnia Last Admin: 12/20/19 20:05 Dose: 9 mg Documented by: Metoprolol Tartrate (Lopressor) 12.5 mg PO BID [facility] Last Admin: 12/21/19 09:13 Dose: 12.5 mg Documented by: Ondansetron HCl (Zofran) 4 mg IV Q6H PRN PRN Reason: Nausea/Vomiting Oral Electrolytes (Thermotabs) 1 each PO TID [facility] Last Admin: 12/21/19 09:05 Dose: 1 each Documented by: Simvastatin (Zocor) 20 mg PO BEDTIME [facility] Last Admin: 12/20/19 20:05 Dose: 20 mg Documented by: Sodium Chloride (Saline Flush) 10 ml FLUSH ASDIRECTED PRN PRN Reason: Keep Vein Open Last Admin: 12/14/19 09:25 Dose: 10 ml Documented by: Discontinued Medications Aspirin (Halfprin) 81 mg PO DAILY [facility] Last Admin: 12/19/19 08:27 Dose: 81 mg Documented by: Clopidogrel Bisulfate (Plavix) 75 mg PO DAILY [facility] Last Admin: 12/19/19 08:26 Dose: 75 mg Documented by: Dexamethasone (Dexamethasone) 6 mg IV DAILY [facility] Stop: 12/21/19 09:01 Last Admin: 12/12/19 10:04 Dose: 6 mg Documented by: Dexamethasone (Dexamethasone) 6 mg IV DAILY [facility] Stop: 12/21/19 09:01 Last Admin: 12/13/19 08:57 Dose: 6 mg Documented by: Furosemide (Lasix) 20 mg IVPUSH NOW ONE Stop: 12/10/19 18:23 Last Admin: 12/10/19 19:07 Dose: 20 mg Documented by: Furosemide (Lasix) 20 mg IVPUSH NOW ONE Stop: 12/11/19 09:10 Last Admin: 12/11/19 09:53 Dose: 20 mg Documented by: Furosemide (Lasix) 20 mg IVPUSH NOW ONE Stop: 12/14/19 10:02 Last Admin: 12/14/19 10:56 Dose: 20 mg Documented by: Furosemide (Lasix) 20 mg IVPUSH ONETIME ONE Stop: 12/20/19 08:51 Last Admin: 12/20/19 09:13 Dose: 20 mg Documented by: Furosemide (Lasix) 20 mg IVPUSH ONETIME ONE Stop: 12/20/19 15:01 Last Admin: 12/20/19 14:16 Dose: 20 mg Documented by: Furosemide (Lasix) 20 mg IVPUSH NOW ONE Stop: 12/21/19 10:01 Sodium Chloride (Normal Saline) 100 mls @ 60 mls/hr IV ASDIRECTED [facility] Last Admin: 12/10/19 16:19 Dose: 60 mls/hr Documented by: Sodium Chloride (Normal Saline) 1,000 mls @ 50 mls/hr IV ASDIRECTED [facility] Last Admin: 12/13/19 04:00 Dose: 50 mls/hr Documented by: REMDESIVIR (EUA) 100 mg/ (Sodium Chloride) 100 mls @ 100 mls/hr IV Q24H [facility] Stop: 12/18/19 16:59 Last Admin: 12/18/19 15:38 Dose: 100 mls/hr Documented by: REMDESIVIR (EUA) 200 mg/ (Sodium Chloride) 250 mls @ 250 mls/hr IV ONETIME ONE Stop: 12/14/19 17:29 Last Admin: 12/14/19 16:24 Dose: 250 mls/hr Documented by: Iopamidol (Isovue-370 (76%)) 100 ml IVPUSH ONETIME ONE Stop: 12/10/19 15:50 Last Admin: 12/10/19 16:18 Dose: 100 ml Documented by: Metoprolol Tartrate (Lopressor) 12.5 mg PO Q12H [facility] Last Admin: 12/12/19 11:12 Dose: Not Given Documented by: Oral Electrolytes (Thermotabs) 1 each PO ONETIME ONE Stop: 12/16/19 17:46 Last Admin: 12/16/19 17:43 Dose: 1 each Documented by: Sodium Chloride (Saline Flush) 10 ml FLUSH ONETIME ONE Stop: 12/10/19 15:50 Last Admin: 12/10/19 16:19 Dose: 10 ml Documented by: - Exam Quality Assessment: Supplemental Oxygen General: Alert, Oriented HEENT: Pupils Equal, Mucous Membr. Moist/Ester Neck: Supple Lungs: Normal Respiratory Effort, Decreased Breath Sounds, Rales Cardiovascular: Regular Rate, Regular Rhythm GI/Abdominal Exam: Normal Bowel Sounds, Soft, Non-Tender, No Distention Back Exam: Normal Inspection Extremities: Normal Inspection, Normal Range of Motion, No Pedal Edema, Normal Capillary Refill Skin: Warm, Dry, Intact Psy/Mental Status: Alert, Normal Affect, Normal Mood Sepsis Event Note - Evaluation Sepsis Screening Result: Sepsis Risk - Focused Exam Vital Signs: Vital Signs Temp Pulse Resp BP Pulse Ox Pulse Ox 12/21/19 09:13 68 107/60 12/21/19 09:02 90 L 12/21/19 04:37 60 20 90 L 12/21/19 03:59 97.9 F 60 16 113/60 94 L - Problem List & Annotations (1) Acute heart failure SNOMED Code(s): 67051371 Code(s): I50.9 - HEART FAILURE, UNSPECIFIED Status: Acute Current Visit: Yes (2) Acute on chronic respiratory failure with hypoxemia SNOMED Code(s): 07401771137105012 Code(s): J96.21 - ACUTE AND CHRONIC RESPIRATORY FAILURE WITH HYPOXIA Status: Acute Current Visit: Yes (3) Grade II diastolic dysfunction SNOMED Code(s): 9204427 Code(s): I51.9 - HEART DISEASE, UNSPECIFIED Status: Acute Current Visit: Yes (4) Hypertension SNOMED Code(s): 43860971 Code(s): I10 - ESSENTIAL (PRIMARY) HYPERTENSION Status: Acute Current Visit: Yes (5) Hypoalbuminemia SNOMED Code(s): 014178539 Code(s): E88.09 - [facility] DISORDERS OF PLASMA-PROTEIN METABOLISM, NEC Status: Acute Current Visit: Yes (6) Hypoxia SNOMED Code(s): 820957247 Code(s): R09.02 - HYPOXEMIA Status: Acute Current Visit: Yes (7) Idiopathic pulmonary fibrosis Status: Acute Current Visit: Yes - Problem List Review Problem List Initiated/Reviewed/Updated: Yes - Assessment Assessment:: 12/11/19 Came in for worsening shortness of breath and lower extremity edema Chronic O2 dependence at 4 L, recently changed the past 3 weeks Pulse ox on admission 76%--> increased to 6L Labs on admission WBC 10.04, no bands Chemistry: Sodium 127, potassium 3.6, chloride 91, CO2 32, GFR 60 Ferritin 505, LDH 338, d-dimer 0.49, proBNP 3684 ABGs: 7.44/44.3/88/29.4/96.5 Chest x-ray with diffuse increased density on both sides of the chest with concerns for pulmonary edema, enlarged heart VS on admission: BP 141/61(87), HR 72, RR 25, SatO2 76% on 4LPM Home BP management with thiazide, likely causing hyponatremia PLAN CTA chest to r/o pulmonary embolus--> negative for PE Lasix IV now Daily weights Fluid restriction PRN Hydralazine Prealbumin Dietary consult Patient will be admitted on O2 supplementation, diuresis and monitorization. 12/11/19 Worsened respiratory status overnight: Started 4 L/min and dropped to 76% around 7 in the morning increased to 6 and later 10 L/min obtaining a pulse ox of 87% Vital signs MAP: 7590 T-max 97.8 Heart rate 91-110 Pulse ox greater than 76 Intake and output Urine output 1, 550 24-hour balance -1, 250 Lab results WBC up from 10.04-11.99 Platelets down from 219-299 Sodium up from 127 230 Potassium down from 3.6-3.3 Chloride stable at 91 Magnesium 1.7 PLAN Transfer to ICU Replace on BiPAP ABGs in 1 hour Daily weights Fluid restriction Increase dietary salt Replace KCl and magnesium Transferred to ICU 12/12/19 Vital signs BP: 102-135/58-79 T-max 98.3 Heart rate 84-130 Pulse ox >71% Intake and output Urine output 2,525 24-hour balance -2,450 Lab results WBC stable at 11.99-11.53 D-dimer up from 0.49-1 Sodium down from 130-129 Potassium down from 3.3-3.1 Chloride up from 91-92 CO2 up from 30-33 Phosphorus down from 3.2-2.6 Mg from 1.7-1.8 CRP up from 6.2-20.2 proBNP up from 3,684-3,842 Ferritin up from 505-609 LDH down from 338-293 PLAN Repeat COVID test Repeat CT chest Daily weights Fluid restriction Continue O2 supplementation via BiPAP Start Dexamethasone 6mg IV QD x 10 days Procalcitonin today and q48h PRN Hydralazine Increase dietary salt Replace PO4, KCl and magnesium 12/13/[address] chest negative for PE, no worsening of infiltrates Echo from 06/14: Stage 2 diastolic dysfunction LVEF 60-65% Patient's lab and clinical picture are highly suggestive of COVID for which new test will be performed today Vital signs BP: 107-128/59-78 T-max 98.3 Heart rate 85-112 Pulse ox >84% Intake and output Urine output 1,850 24-hour balance -2,360 Weight down from 69.4kg to 67.13 Lab results WBC down from 11.53 to 10.98 D-dimer stable from 0.99 to 1 Sodium up from 129-132 Potassium up from 3.1-3.5 Mg up from 1.8 to 2 CRP down from 20.2-17.5 proBNP up from 3,842-4,934 Ferritin up from 609-743 LDH up from 293-392 PLAN Repeat COVID test, send out Daily weights Fluid restriction Continue O2 supplementation via BiPAP (01/16 @ 50%) Continue Dexamethasone 6mg IV QD x 10 days Procalcitonin q48h COVID labs in AM ABGs in AM Continue home medications PRN Hydralazine Increased dietary salt Replace PO4, KCl and magnesium 12/14/19 Patient is not improving as I would hope, this is likely because she has viral pneumonia and is just not testing positive for COVID Will discuss case with ID to evaluate if they agree with me starting patient on Remdesivir VS trends - MAP 82-104 - Tmax 98 - HR 74-91 - SatO2 >82% Lab results - WBC up from 10.98 to 13.03 ( 1% bands) - DD up from 0.99 to 1.11 - Na up from 132 to 134 - CO2 stable at 33 - Ferritin up from 735 to 835 - CRP down from 17.5 to 8.2 - BNP down from 4934 to 4780 PLAN Repeat COVID test, results pending Consult ID for recommendations on starting COVID treatment Daily weights Fluid restriction Continue O2 supplementation via BiPAP (01/16 @ 50%) Continue Dexamethasone 6mg IV QD x 10 days Procalcitonin q48h COVID labs in AM ABGs in AM Lasix 20mgIV push Prealbumin Dietary follow up 12/15/19 Dropped to 78 when she went to take a shower, FiO2 increased to 60% and Sat went up to 93%--> turned back down to 50 Consulted with ID specialty last evening who recommended start patient on Remdesivir VS trends - MAP 70-95 - Tmax 98 - HR 61-71 - SatO2 >89% Intake and output Urine output 1,770 24-hour balance -380 Lab results - WBC down from 13.03 to 11.74 - Neutrophil % down from 88 to 66 - DD up from 1.11 to 1.89 - Na stable at 134 - CO2 stable at 33 - PO4 down from 3.1 to 2.3 - Ferritin down from 835 to 720 - LDH yp from 258 to 263 - CRP down from 8.2 to 4.5 - BNP down from 4180 to 3410 12/16/19 Patient had discussed with me how she had been seen by a account service representative recently and they had told her she needed a blood test prior to starting a medication for her pulmonary fibrosis - Records were requested from Pulmonary (Dr. Myrick) and cardiology (Dr. Mendiola) - Left heart cath: - s/p rotational atherectomy - Placement of DEX to mid RCA and proximal LAD - Known occlusion of the marginal branch - PFTs: FEV1- 74%, FVC-52%, TLC-51%, DLCO-31% - Moderate restriction - interstitial - Severe diffusion defect - Completed 18% of 6 minute walk test - Planning to start patient on Ofev (Nintedanib) --> needs LFTs prior to starting Inflammatory markers continue to trend down Significant improvement in oxygenation since Remdesivir was started Her O2 requirements have decreased and patient spent most of the day yesterday with NC and tolerated well all day at 5LPM since 4AM VS trends - MAP 70-95 - Tmax 97.9 - HR 61-71 - SatO2 >89% Lab results - WBC down from 11.74 to 8.41 - DD down from 1.89 to 1.15 - Na down from 134 to 132 - K up from 3.9 to 4.6 - CO2 up from 33 to 35 - PO4 up from 2.3 to 3.3 - Ferritin down from 720 to 687 - CRP down from 4.2 to 4.5 - BNP up from 3410 to 4099 PLAN Remdesivir day 3 Dexamethasone 6mg QD day 4 Daily weights Continue O2 supplementation via NC and BiPAP Procalcitonin q48h Pulse ox goal 85-90% Start vitamin C to complete 10 days Taper down O2 supplementation as tolerated 12/17/19 Sleeping better Has been on nasal canula only for more than 24 hours, currently only on 5LPM No longer using BiPAP since 12/13 at 9AM Pulse ox does drop on exertion but overall has stayed above 88% Is recovering faster now than initially after exertion Patient declines worsening of symptoms VS trends - MAP 72-95 - Tmax 98 - HR 63-72 - SatO2 >88% Lab results - WBC up from 8.41 to 11.72 - DD up from 1.15 to 1.7 - Na up from 132 to 133 - CO2 down from 35 to 33 - CRP down from 4.2 to 2.8 - BNP down from 4099 to 3663 - Ferritin mild increase from 687 to 713 PLAN Remdesivir day 4 Dexamethasone 6mg QD day 5 Daily weights Continue O2 supplementation via NC Procalcitonin q48h Pulse ox goal 85-90% Continue vitamin C to complete 10 days Taper down O2 supplementation as tolerated PRN Hydralazine Dietary follow up Patient is stable enough to be downgraded to med surg. PT is recommending placement to SNF, however her exertion tolerance is changing so will continue current regimen. Will have PT evaluate on a daily basis to trend progress and adjust recommendations. Application has been sent to [facility] in the meantime. 12/18/19 Physical exam with significant interval improvement - Air entry is audible throughout lung yoo - End expiratory wheezing is almost resolved VS trends - BP: 97-131/49-89 - Tmax: 98.2 - HR: 52-71x' - SatO2 >88% on NC @4-5LPM Intake and output - UO: 2,200 - 24h balance: -1,680 Lab results - WBC down from 11.72 to 10.68 - Plt up from 332 to 373 - DD down from 1.7 to 0.93 - Na down from 133 to 132 - K up from 4.5 to 5.4 - CO2 down from 33 to 30 - Ferritin mild increase from 713 to 754 - LDH up from 273 to 270 - CRP down from 2.8 to 2.5 12/19/2019 Patient is at baseline. Lungs are clear. * Blood pressure well controlled, * afebrile, * heart rate in the 60s, * respiratory rate 20 * Oxygenation between 88 and 94% on 4 L. * White count increasing likely secondary to steroids. * WBC 14 * Hyperkalemia improved from yesterday. Potassium 5.2. * Hyponatremia stable at 131 12/20/2019 Patient had increased oxygen requirement to 5 L nasal cannula. It appears she is volume overloaded with mildly increased shortness of breath and rales in her bases. Generally her lab work is either stable or slightly improved. Her hyponatremia worsening does suggest some volume overload. * Blood pressure remains well controlled, * Afebrile * heart rate in the 60s and 70s * respiratory rate stable at 20 * pulse oximetry in the low 90s and upper 80s on 5 L * WBC stable at 13 * Potassium normalized at 4.4 * Sodium decreased to 129 from 131 * D-dimer now normal at 0.37 * C-reactive protein decrease to 1.4 12/21/2019 Patient continues to require additional oxygen especially with and after activity. At rest overnight she tolerated only 4 L which is her baseline, but this morning required up to 6 L after minimal activity. This is not likely to get better and is likely her new baseline. * Blood pressure continues to be well controlled and vital signs are stable except increasing oxygen requirement * 4 to 6 L nasal cannula to keep SPO2 in the low 90s * White blood cell count 14.3 likely steroid effect. Second to last day for steroids. Afebrile. * Sodium up to 130 * PT recommends SNF placement, but insist on taking her home. - Plan Plan:: Acute on chronic respiratory failure with hypoxemia, multifactorial, stable Acute on chronic ischemic heart failure-deteriorated Coronary artery disease s/p stenting x 2 on 09/2019 Idiopathic pulmonary fibrosis Compensated metabolic alkalosis-resolved Lasix 20 mg IV this morning. Follow respiratory status closely. -Remdesivir -finished Dexamethasone 6mg QD day 9 out of 10 Daily weights Continue O2 supplementation via NC. Goal to decrease back to 4 L/min Pulse ox goal 85-90% Continue vitamin C to complete 10 days -Repeat CBC,BMP, CRP and magnesium in the morning Hyperkalemia -resolved -Continue to monitor Hypertension, controlled Continue home medications PRN Hydralazine Hypoalbuminemia Dietary follow up Hyponatremia-deteriorated Hypomagnesemia,/Hypophosphatemia, resolved PROPHYLAXIS DVT-Lovenox GI- not indicated CODE STATUS: DNR/DNI DISPOSITION: Patient back to baseline O2 requirements. Discharge likely tomorrow with home health.
[2019-12-21] MEDS: Melatonin 3 MG Tab PO PRN (20:03)
[2019-12-21] MEDS: Simvastatin 20 MG Tab PO SCH (20:04)
[2019-12-22] MEDS: Ascorbic Acid 500 MG Tab PO SCH ×2 (02:34→09:01)
--- NOTE | 2019-12-22 08:17 | CR ---
Chest: Portable view of the chest was obtained. Comparison: Prior chest x-ray of 12/20/19. Diffuse increased lung markings are seen. Findings are minimally improved from previous study. Heart size is within normal limits for portable technique. Tortuous thoracic aorta is seen. Bony structures are osteopenic. Impression: 1. Increased lung markings which are minimally improved from previous study. 2. No acute abnormality is otherwise seen. Diagnostic code #3 This report was dictated in MDT
[2019-12-22] MEDS: Calcium Carbonate 600 MG Tab PO SCH (09:04)
[2019-12-22] MEDS: Dexamethasone 4 MG Tab PO SCH (09:05)
[2019-12-22] MEDS: Aspirin 81 MG Tab.EC PO SCH (09:05)
[2019-12-22] MEDS: Sodium Chloride/Potassium Chloride Tab PO SCH (09:06)
[2019-12-22] MEDS: Clopidogrel 75 MG Tab PO SCH (09:06)
[2019-12-22] MEDS: Metoprolol Tartrate 25 MG Tab PO SCH (09:13)
[2019-12-22] MEDS: Enoxaparin 40 MG/0.4 ML Syringe SUBCUT SCH (09:23)
[2019-12-22 09:24] VITALS: BP 117/93; PULSE 79
--- NOTE | 2019-12-22 11:48 | PCM.DCSUM1 ---
Discharge Summary - Hospital Course HPI Initial Comments: This is an 84 year old female with past medical history of pulmonary fibrosis and chronic hypoxemic respiratory failure who comes to the ED complaining of worsening shortness of breath for a couple of days. As per patient she has been on oxygen for over a year, normally at home her pulse ox ranges from 74 -94% and she normally is on 4LPM NC, this was changed 2.5 weeks, before on 2.5L. Once she noticed her symptoms were not improving and her legs were getting more and more swollen for which she came in for evaluation. ASSESSMENT Came in for worsening shortness of breath and lower extremity edema Chronic O2 dependence at 4 L, recently changed the past 3 weeks Pulse ox on admission 76%--> increased to 6L Labs on admission WBC 10.04, no bands Chemistry: Sodium 127, potassium 3.6, chloride 91, CO2 32, GFR 60 Ferritin 505, LDH 338, d-dimer 0.49, proBNP 3684 ABGs: 7.44/44.3/88/29.4/96.5 Chest x-ray with diffuse increased density on both sides of the chest with concerns for pulmonary edema, enlarged heart VS on admission: BP 141/61(87), HR 72, RR 25, SatO2 76% on 4LPM Home BP management with thiazide, likely causing hyponatremia PLAN Acute on chronic respiratory failure with hypoxemia, multifactorial Acute on chronic ischemic heart failure Coronary artery disease s/p stenting x 2 on 09/2019 Idiopathic pulmonary fibrosis Compensated metabolic alkalosis CTA chest to r/o pulmonary embolus Lasix IV now Daily weights Fluid restriction Hypertension Continue home medications once available PRN Hydralazine Hyponatremia Hypokalemia Hold thiazide Replace KCl Hypoalbuminemia Prealbumin Dietary consult PROPHYLAXIS DVT-Lovenox GI- not indicated CODE STATUS: DNR/DNI DISPOSITION: Patient will be admitted on O2 supplementation, diuresis and monitorization. SOCIAL: Comes from home, here in [place] with [facility] PCP is Dr. Vargas - Mortality Measure Prognosis:: Poor Diagnosis: Stroke: No - Discharge Data Discharge Date: 12/22/19 Discharge Disposition: DC/Tfer to SNF 03 Condition: Good - Referral to Home Health Primary Care Physician: Garth Vargas MD - Discharge Diagnosis/Problem(s) (1) Acute heart failure SNOMED Code(s): 48047007 ICD Code: I50.9 - HEART FAILURE, UNSPECIFIED Status: Acute Current Visit: Yes (2) Acute on chronic respiratory failure with hypoxemia SNOMED Code(s): 44321793087842568 ICD Code: J96.21 - ACUTE AND CHRONIC RESPIRATORY FAILURE WITH HYPOXIA Status: Acute Current Visit: Yes (3) Grade II diastolic dysfunction SNOMED Code(s): 0773132 ICD Code: I51.9 - HEART DISEASE, UNSPECIFIED Status: Acute Current Visit: Yes (4) Hypertension SNOMED Code(s): 20015543 ICD Code: I10 - ESSENTIAL (PRIMARY) HYPERTENSION Status: Acute Current Visit: Yes (5) Hypoalbuminemia SNOMED Code(s): 344943356 ICD Code: E88.09 - OTH DISORDERS OF PLASMA-PROTEIN METABOLISM, NEC Status: Acute Current Visit: Yes (6) Hypoxia SNOMED Code(s): 563246654 ICD Code: R09.02 - HYPOXEMIA Status: Acute Current Visit: Yes (7) Idiopathic pulmonary fibrosis Status: Acute Current Visit: Yes - Patient Summary/Data Consults: Consultations 12/10/19 18:18 OT Evaluation and Treatment [CONS] Routine PT Evaluation and Treatment [CONS] Routine Hospital Course: Assessment:: 12/11/19 Came in for worsening shortness of breath and lower extremity edema Chronic O2 dependence at 4 L, recently changed the past 3 weeks Pulse ox on admission 76%--> increased to 6L Labs on admission WBC 10.04, no bands Chemistry: Sodium 127, potassium 3.6, chloride 91, CO2 32, GFR 60 Ferritin 505, LDH 338, d-dimer 0.49, proBNP 3684 ABGs: 7.44/44.3/88/29.4/96.5 Chest x-ray with diffuse increased density on both sides of the chest with concerns for pulmonary edema, enlarged heart VS on admission: BP 141/61(87), HR 72, RR 25, SatO2 76% on 4LPM Home BP management with thiazide, likely causing hyponatremia PLAN CTA chest to r/o pulmonary embolus--> negative for PE Lasix IV now Daily weights Fluid restriction PRN Hydralazine Prealbumin Dietary consult Patient will be admitted on O2 supplementation, diuresis and monitorization. 12/11/19 Worsened respiratory status overnight: Started 4 L/min and dropped to 76% around 7 in the morning increased to 6 and later 10 L/min obtaining a pulse ox of 87% Vital signs MAP: 7590 T-max 97.8 Heart rate 91-110 Pulse ox greater than 76 Intake and output Urine output 1, 550 24-hour balance -1, 250 Lab results WBC up from 10.04-11.99 Platelets down from 219-299 Sodium up from 127 230 Potassium down from 3.6-3.3 Chloride stable at 91 Magnesium 1.7 PLAN Transfer to ICU Replace on BiPAP ABGs in 1 hour Daily weights Fluid restriction Increase dietary salt Replace KCl and magnesium Transferred to ICU 12/12/19 Vital signs BP: 102-135/58-79 T-max 98.3 Heart rate 84-130 Pulse ox >71% Intake and output Urine output 2,525 24-hour balance -2,450 Lab results WBC stable at 11.99-11.53 D-dimer up from 0.49-1 Sodium down from 130-129 Potassium down from 3.3-3.1 Chloride up from 91-92 CO2 up from 30-33 Phosphorus down from 3.2-2.6 Mg from 1.7-1.8 CRP up from 6.2-20.2 proBNP up from 3,684-3,842 Ferritin up from 505-609 LDH down from 338-293 PLAN Repeat COVID test Repeat CT chest Daily weights Fluid restriction Continue O2 supplementation via BiPAP Start Dexamethasone 6mg IV QD x 10 days Procalcitonin today and q48h PRN Hydralazine Increase dietary salt Replace PO4, KCl and magnesium 12/13/[address] chest negative for PE, no worsening of infiltrates Echo from 06/14: Stage 2 diastolic dysfunction LVEF 60-65% Patient's lab and clinical picture are highly suggestive of COVID for which new test will be performed today Vital signs BP: 107-128/59-78 T-max 98.3 Heart rate 85-112 Pulse ox >84% Intake and output Urine output 1,850 24-hour balance -2,360 Weight down from 69.4kg to 67.13 Lab results WBC down from 11.53 to 10.98 D-dimer stable from 0.99 to 1 Sodium up from 129-132 Potassium up from 3.1-3.5 Mg up from 1.8 to 2 CRP down from 20.2-17.5 proBNP up from 3,842-4,934 Ferritin up from 609-743 LDH up from 293-392 PLAN Repeat COVID test, send out Daily weights Fluid restriction Continue O2 supplementation via BiPAP (01/16 @ 50%) Continue Dexamethasone 6mg IV QD x 10 days Procalcitonin q48h COVID labs in AM ABGs in AM Continue home medications PRN Hydralazine Increased dietary salt Replace PO4, KCl and magnesium 12/14/19 Patient is not improving as I would hope, this is likely because she has viral pneumonia and is just not testing positive for COVID Will discuss case with ID to evaluate if they agree with me starting patient on Remdesivir VS trends - MAP 82-104 - Tmax 98 - HR 74-91 - SatO2 >82% Lab results - WBC up from 10.98 to 13.03 ( 1% bands) - DD up from 0.99 to 1.11 - Na up from 132 to 134 - CO2 stable at 33 - Ferritin up from 735 to 835 - CRP down from 17.5 to 8.2 - BNP down from 4934 to 4780 PLAN Repeat COVID test, results pending Consult ID for recommendations on starting COVID treatment Daily weights Fluid restriction Continue O2 supplementation via BiPAP (01/16 @ 50%) Continue Dexamethasone 6mg IV QD x 10 days Procalcitonin q48h COVID labs in AM ABGs in AM Lasix 20mgIV push Prealbumin Dietary follow up 12/15/19 Dropped to 78 when she went to take a shower, FiO2 increased to 60% and Sat went up to 93%--> turned back down to 50 Consulted with ID specialty last evening who recommended start patient on Remdesivir VS trends - MAP 70-95 - Tmax 98 - HR 61-71 - SatO2 >89% Intake and output Urine output 1,770 24-hour balance -380 Lab results - WBC down from 13.03 to 11.74 - Neutrophil % down from 88 to 66 - DD up from 1.11 to 1.89 - Na stable at 134 - CO2 stable at 33 - PO4 down from 3.1 to 2.3 - Ferritin down from 835 to 720 - LDH yp from 258 to 263 - CRP down from 8.2 to 4.5 - BNP down from 4180 to 3410 12/16/19 Patient had discussed with me how she had been seen by a music education adjunct professor recently and they had told her she needed a blood test prior to starting a medication for her pulmonary fibrosis - Records were requested from Pulmonary (Dr. Myrick) and cardiology (Dr. Mendiola) - Left heart cath: - s/p rotational atherectomy - Placement of DEX to mid RCA and proximal LAD - Known occlusion of the marginal branch - PFTs: FEV1- 74%, FVC-52%, TLC-51%, DLCO-31% - Moderate restriction - interstitial - Severe diffusion defect - Completed 18% of 6 minute walk test - Planning to start patient on Ofev (Nintedanib) --> needs LFTs prior to starting Inflammatory markers continue to trend down Significant improvement in oxygenation since Remdesivir was started Her O2 requirements have decreased and patient spent most of the day yesterday with NC and tolerated well all day at 5LPM since 4AM VS trends - MAP 70-95 - Tmax 97.9 - HR 61-71 - SatO2 >89% Lab results - WBC down from 11.74 to 8.41 - DD down from 1.89 to 1.15 - Na down from 134 to 132 - K up from 3.9 to 4.6 - CO2 up from 33 to 35 - PO4 up from 2.3 to 3.3 - Ferritin down from 720 to 687 - CRP down from 4.2 to 4.5 - BNP up from 3410 to 4099 PLAN Remdesivir day 3 Dexamethasone 6mg QD day 4 Daily weights Continue O2 supplementation via NC and BiPAP Procalcitonin q48h Pulse ox goal 85-90% Start vitamin C to complete 10 days Taper down O2 supplementation as tolerated 12/17/19 Sleeping better Has been on nasal canula only for more than 24 hours, currently only on 5LPM No longer using BiPAP since 12/13 at 9AM Pulse ox does drop on exertion but overall has stayed above 88% Is recovering faster now than initially after exertion Patient declines worsening of symptoms VS trends - MAP 72-95 - Tmax 98 - HR 63-72 - SatO2 >88% Lab results - WBC up from 8.41 to 11.72 - DD up from 1.15 to 1.7 - Na up from 132 to 133 - CO2 down from 35 to 33 - CRP down from 4.2 to 2.8 - BNP down from 4099 to 3663 - Ferritin mild increase from 687 to 713 PLAN Remdesivir day 4 Dexamethasone 6mg QD day 5 Daily weights Continue O2 supplementation via NC Procalcitonin q48h Pulse ox goal 85-90% Continue vitamin C to complete 10 days Taper down O2 supplementation as tolerated PRN Hydralazine Dietary follow up Patient is stable enough to be downgraded to med surg. PT is recommending placement to SNF, however her exertion tolerance is changing so will continue current regimen. Will have PT evaluate on a daily basis to trend progress and adjust recommendations. Application has been sent to [facility] in the meantime. 12/18/19 Physical exam with significant interval improvement - Air entry is audible throughout lung yoo - End expiratory wheezing is almost resolved VS trends - BP: 97-131/49-89 - Tmax: 98.2 - HR: 52-71x' - SatO2 >88% on NC @4-5LPM Intake and output - UO: 2,200 - 24h balance: -1,680 Lab results - WBC down from 11.72 to 10.68 - Plt up from 332 to 373 - DD down from 1.7 to 0.93 - Na down from 133 to 132 - K up from 4.5 to 5.4 - CO2 down from 33 to 30 - Ferritin mild increase from 713 to 754 - LDH up from 273 to 270 - CRP down from 2.8 to 2.5 12/19/2019 Patient is at baseline. Lungs are clear. * Blood pressure well controlled, * afebrile, * heart rate in the 60s, * respiratory rate 20 * Oxygenation between 88 and 94% on 4 L. * White count increasing likely secondary to steroids. * WBC 14 * Hyperkalemia improved from yesterday. Potassium 5.2. * Hyponatremia stable at 131 12/20/2019 Patient had increased oxygen requirement to 5 L nasal cannula. It appears she is volume overloaded with mildly increased shortness of breath and rales in her bases. Generally her lab work is either stable or slightly improved. Her hyponatremia worsening does suggest some volume overload. * Blood pressure remains well controlled, * Afebrile * heart rate in the 60s and 70s * respiratory rate stable at 20 * pulse oximetry in the low 90s and upper 80s on 5 L * WBC stable at 13 * Potassium normalized at 4.4 * Sodium decreased to 129 from 131 * D-dimer now normal at 0.37 * C-reactive protein decrease to 1.4 12/21/2019 Patient continues to require additional oxygen especially with and after activity. At rest overnight she tolerated only 4 L which is her baseline, but this morning required up to 6 L after minimal activity. This is not likely to get better and is likely her new baseline. * Blood pressure continues to be well controlled and vital signs are stable except increasing oxygen requirement * 4 to 6 L nasal cannula to keep SPO2 in the low 90s * White blood cell count 14.3 likely steroid effect. Second to last day for steroids. Afebrile. * Sodium up to 130 * PT recommends SNF placement, but insist on taking her home. 12/22/2019 Patient continues on 4 L nasal cannula at rest, but up to 6 L with any activity. This appears to be the patient's new baseline. I discussed this with her . Patient is planning discharge today to [facility]. - Patient Instructions Diet: Heart Healthy Diet Activity: As Tolerated Driving: Do Not Drive Showering/Bathing: May Shower Notify Provider of: Fever Other/Special Instructions: Follow-up with pulmonology as soon as possible. Follow-up with your primary care provider in 1 to 2 weeks. - Discharge Plan *PRESCRIPTION DRUG MONITORING PROGRAM REVIEWED*: No *COPY OF PRESCRIPTION DRUG MONITORING REPORT IN PATIENT ANIL: No Prescriptions/Med Rec: Melatonin 9 mg PO BEDTIME PRN #90 tablet PRN Reason: Insomnia Sodium Chloride/KCl [Thermotabs] 1 each PO TID #21 tablet Albuterol [Ventolin HFA] 2 puff INH Q4H PRN #1 puff PRN Reason: Shortness Of Breath Home Medications: Home Meds Aspirin [Aspirin EC] 81 mg PO DAILY 12/10/19 [History] Calcium Carbonate [Calcium] 600 mg PO DAILY 12/10/19 [History] Clopidogrel Bisulfate [Plavix] 75 mg PO DAILY 12/10/19 [History] Metoprolol Tartrate 12.5 mg PO BID 12/10/19 [History] Multivitamin [Multivitamins] 1 tab PO DAILY 12/10/19 [History] atorvaSTATin Calcium [Lipitor] 20 mg PO BEDTIME 12/10/19 [History] Albuterol [Ventolin HFA] 2 puff INH Q4H PRN #1 puff 12/22/19 [Rx] Melatonin 9 mg PO BEDTIME PRN #90 tablet 12/22/19 [Rx] Metoprolol Tartrate [Lopressor] 12.5 mg PO BID #0 tablet 12/22/19 [Rx] Sodium Chloride/KCl [Thermotabs] 1 each PO TID #21 tablet 12/22/19 [Rx] Patient Handouts: Hypoxia, Pulmonary Fibrosis, Heart Failure, Self Care, Heart Failure Action Plan, Heart-Healthy Eating Plan, Prevent the Spread of COVID-19 if You Are Sick - [facility] Forms: ED Department Discharge Referrals: Levar Mendiola MD [Ordering Only Provider] - (You need to follow up with homeopathic doctor as soon as possible. ) Garth Vargas MD [Primary Care Provider] - 12/28/19 9:30 am (Please follow up with Dr. Vargas on FridayDecember 27 at 0930am.) Navin Myrick Om, MD [Ordering Only Provider] - 02/02/20 10:30 am (Please continue and follow up with your already scheduled appt. this is a 2 month recheck. (this appt. is with your Pulmonologsit)) - Discharge Summary/Plan Comment DC Time >30 min.: Yes Discharge Summary/Plan Comment: Discharged to [facility]. - General Info Date of Service: 12/22/19 Admission Dx/Problem (Free Text: Admission Diagnosis/Problem Admission Diagnosis/Problem Congestive heart failure Subjective Update: Patient states that she feels fine as long as she is not active. She becomes more short of breath with any activity. Functional Status: Reports: Pain Controlled - Review of Systems General: Reports: No Symptoms HEENT: Reports: No Symptoms Pulmonary: Reports: Shortness of Breath Cardiovascular: Reports: No Symptoms Gastrointestinal: Reports: No Symptoms Musculoskeletal: Reports: No Symptoms - Patient Data Vitals - Most Recent: Last Vital Signs Temp 97.5 F 12/22/19 02:41 Pulse 79 12/22/19 09:13 Resp 20 12/22/19 07:21 BP 117/93 H 12/22/19 09:13 Pulse Ox 96 12/22/19 09:13 Weight - Most Recent: 67.177 kg I&O - Last 24 hours: Intake & Output 12/21/19 12/22/19 12/22/19 22:59 06:59 14:59 Intake Total 900 200 300 Output Total 1025 550 Balance -125 -350 300 Lab Results - Last 24 hrs: Laboratory Results - last 24 hr 12/22/19 12/22/19 12/22/19 Range/Units 05:17 05:17 11:00 WBC 12.67 H (3.98-10.04) K/mm3 RBC 5.14 (3.98-5.22) M/mm3 Hgb 15.0 (11.2-15.7) gm/dl Hct 44.7 (34.1-44.9) % MCV 87.0 (79.4-94.8) fl MCH 29.2 (25.6-32.2) pg MCHC 33.6 (32.2-35.5) g/dl RDW Std Deviation 47.0 H (36.4-46.3) fL Plt Count 304 (182-369) K/mm3 MPV 9.7 (9.4-12.3) fl Neut % (Auto) 76.1 H (34.0-71.1) % Lymph % (Auto) 13.3 L (19.3-51.7) % [place] % (Auto) 9.4 (4.7-12.5) % Eos % (Auto) 0.1 L (0.7-5.8) Baso % (Auto) 0.0 L (0.1-1.2) % Neut # (Auto) 9.65 H (1.56-6.13) K/mm3 Lymph # (Auto) 1.68 (1.18-3.74) K/mm3 [place] # (Auto) 1.19 H (0.24-0.36) K/mm3 Eos # (Auto) 0.01 L (0.04-0.36) K/mm3 Baso # (Auto) 0.00 L (0.01-0.08) K/mm3 Manual Slide Review Normal smear Sodium 133 L (136-145) mEq/L Potassium 4.1 (3.5-5.1) mEq/L Chloride 93 L (98-107) mEq/L Carbon Dioxide 33 H (21-32) mEq/L Anion Gap 11.1 (5-15) BUN 29 H (7-18) mg/dL Creatinine 0.8 (0.55-1.02) mg/dL Est Cr Clr Drug Dosing 43.30 mL/min Estimated GFR (MDRD) > 60 (>60) mL/min BUN/Creatinine Ratio 36.3 H (14-18) Glucose 126 H (83-115) mg/dL Calcium 8.9 (8.5-10.1) mg/dL Magnesium 2.2 (1.8-2.4) mg/dl C-Reactive Protein 1.0 (<1.0) mg/dL COVID-19 (MAGNOLIA) Negative (NEGATIVE) Med Orders - Current: Current Medications Albuterol (Proventil Hfa) 0 gm INH Q6H PRN PRN Reason: Wheezing Last Admin: 12/22/19 09:40 Dose: 1 puff Documented by: Ascorbic Acid (Vitamin C) 1,500 mg PO Q6H [facility] Last Admin: 12/22/19 09:01 Dose: 1,500 mg Documented by: Aspirin (Halfprin) 81 mg PO DAILY [facility] Last Admin: 12/22/19 09:05 Dose: 81 mg Documented by: Calcium Carbonate/Glycine (Calcium Carbonate) 600 mg PO DAILY [facility] Last Admin: 12/22/19 09:04 Dose: 600 mg Documented by: Clopidogrel Bisulfate (Plavix) 75 mg PO DAILY [facility] Last Admin: 12/22/19 09:06 Dose: 75 mg Documented by: Enoxaparin Sodium (Lovenox) 40 mg SUBCUT DAILY [facility] Last Admin: 12/22/19 09:23 Dose: 40 mg Documented by: Melatonin (Melatonin) 9 mg PO BEDTIME PRN PRN Reason: Insomnia Last Admin: 12/21/19 20:03 Dose: 9 mg Documented by: Metoprolol Tartrate (Lopressor) 12.5 mg PO BID [facility] Last Admin: 12/22/19 09:13 Dose: 12.5 mg Documented by: Ondansetron HCl (Zofran) 4 mg IV Q6H PRN PRN Reason: Nausea/Vomiting Oral Electrolytes (Thermotabs) 1 each PO TID [facility] Last Admin: 12/22/19 09:06 Dose: 1 each Documented by: Simvastatin (Zocor) 20 mg PO BEDTIME [facility] Last Admin: 12/21/19 20:04 Dose: 20 mg Documented by: Sodium Chloride (Saline Flush) 10 ml FLUSH ASDIRECTED PRN PRN Reason: Keep Vein Open Last Admin: 12/14/19 09:25 Dose: 10 ml Documented by: Discontinued Medications Aspirin (Halfprin) 81 mg PO DAILY [facility] Last Admin: 12/19/19 08:27 Dose: 81 mg Documented by: Clopidogrel Bisulfate (Plavix) 75 mg PO DAILY [facility] Last Admin: 12/19/19 08:26 Dose: 75 mg Documented by: Dexamethasone (Dexamethasone) 6 mg IV DAILY [facility] Stop: 12/21/19 09:01 Last Admin: 12/12/19 10:04 Dose: 6 mg Documented by: Dexamethasone (Dexamethasone) 6 mg IV DAILY [facility] Stop: 12/21/19 09:01 Last Admin: 12/13/19 08:57 Dose: 6 mg Documented by: Dexamethasone (Dexamethasone) 6 mg PO DAILY [facility] Stop: 12/22/19 09:01 Last Admin: 12/22/19 09:05 Dose: 6 mg Documented by: Furosemide (Lasix) 20 mg IVPUSH NOW ONE Stop: 12/10/19 18:23 Last Admin: 12/10/19 19:07 Dose: 20 mg Documented by: Furosemide (Lasix) 20 mg IVPUSH NOW ONE Stop: 12/11/19 09:10 Last Admin: 12/11/19 09:53 Dose: 20 mg Documented by: Furosemide (Lasix) 20 mg IVPUSH NOW ONE Stop: 12/14/19 10:02 Last Admin: 12/14/19 10:56 Dose: 20 mg Documented by: Furosemide (Lasix) 20 mg IVPUSH ONETIME ONE Stop: 12/20/19 08:51 Last Admin: 12/20/19 09:13 Dose: 20 mg Documented by: Furosemide (Lasix) 20 mg IVPUSH ONETIME ONE Stop: 12/20/19 15:01 Last Admin: 12/20/19 14:16 Dose: 20 mg Documented by: Furosemide (Lasix) 20 mg IVPUSH NOW ONE Stop: 12/21/19 10:01 Last Admin: 12/21/19 11:43 Dose: 20 mg Documented by: Sodium Chloride (Normal Saline) 100 mls @ 60 mls/hr IV ASDIRECTED [facility] Last Admin: 12/10/19 16:19 Dose: 60 mls/hr Documented by: Sodium Chloride (Normal Saline) 1,000 mls @ 50 mls/hr IV ASDIRECTED [facility] Last Admin: 12/13/19 04:00 Dose: 50 mls/hr Documented by: REMDESIVIR (EUA) 100 mg/ (Sodium Chloride) 100 mls @ 100 mls/hr IV Q24H [facility] Stop: 12/18/19 16:59 Last Admin: 12/18/19 15:38 Dose: 100 mls/hr Documented by: REMDESIVIR (EUA) 200 mg/ (Sodium Chloride) 250 mls @ 250 mls/hr IV ONETIME ONE Stop: 12/14/19 17:29 Last Admin: 12/14/19 16:24 Dose: 250 mls/hr Documented by: Iopamidol (Isovue-370 (76%)) 100 ml IVPUSH ONETIME ONE Stop: 12/10/19 15:50 Last Admin: 12/10/19 16:18 Dose: 100 ml Documented by: Metoprolol Tartrate (Lopressor) 12.5 mg PO Q12H [facility] Last Admin: 12/12/19 11:12 Dose: Not Given Documented by: Oral Electrolytes (Thermotabs) 1 each PO ONETIME ONE Stop: 12/16/19 17:46 Last Admin: 12/16/19 17:43 Dose: 1 each Documented by: Sodium Chloride (Saline Flush) 10 ml FLUSH ONETIME ONE Stop: 12/10/19 15:50 Last Admin: 12/10/19 16:19 Dose: 10 ml Documented by: - Exam Quality Assessment: Reports: Supplemental Oxygen General: Reports: Alert, Oriented HEENT: Reports: Pupils Equal, Mucous Membr. Moist/[place] Neck: Reports: Supple Lungs: Reports: Normal Respiratory Effort, Decreased Breath Sounds, Rales (Improved) Cardiovascular: Reports: Regular Rate, Regular Rhythm GI/Abdominal Exam: Normal Bowel Sounds, Soft, Non-Tender, No Distention, No Abnormal Bruit Extremities: Normal Inspection, Normal Range of Motion, Non-Tender, No Pedal Edema, Normal Capillary Refill Skin: Reports: Warm, Dry, Intact Psy/Mental Status: Reports: Alert, Normal Affect, Normal Mood
== END 2019-12-22 13:30 | DRG 291 ==
LOC: SUPCPDRO 11:40 → JD.ED 11:40 → JD.MS 16:51 → JD.ICU 12-11 07:58 → JD.MS 12-17 17:30
PROVIDERS: ADMIT Internal Medicine; ATTEND Internal Medicine
PROC: 5A09557 Assistance with Respiratory Ventilation, Greater than 96 Consecutive Hours, Continuous Positive Airway Pressure (ICD-10-PCS; principal; 2019-12-10)
DX: I11.0 Hypertensive heart disease with heart failure (principal); J96.21 Acute and chronic respiratory failure with hypoxia; E87.3 Alkalosis; R09.02 Hypoxemia; E87.1 Hypo-osmolality and hyponatremia; H91.93 Unspecified hearing loss, bilateral; I50.9 Heart failure, unspecified; J84.10 Pulmonary fibrosis, unspecified; Z66 Do not resuscitate; Z79.02 Long term (current) use of antithrombotics/antiplatelets; I25.10 Atherosclerotic heart disease of native coronary artery without angina pectoris; E87.6 Hypokalemia; H91.90 Unspecified hearing loss, unspecified ear; H54.7 Unspecified visual loss; Z96.653 Presence of artificial knee joint, bilateral; J84.112 Idiopathic pulmonary fibrosis; T50.2X5A Adverse effect of carbonic-anhydrase inhibitors, benzothiadiazides and other diuretics, initial encounter; E88.09 Other disorders of plasma-protein metabolism, not elsewhere classified; Z20.828 Contact with and (suspected) exposure to other viral communicable diseases; D72.829 Elevated white blood cell count, unspecified; T38.0X5A Adverse effect of glucocorticoids and synthetic analogues, initial encounter; Z95.5 Presence of coronary angioplasty implant and graft; Z79.82 Long term (current) use of aspirin; Z79.899 Other long term (current) drug therapy; Z87.440 Personal history of urinary (tract) infections; Z97.4 Presence of external hearing-aid; Z99.81 Dependence on supplemental oxygen
CPT/HCPCS: 36415; 36600; 71045; 71275; 80053; 82728; 82803; 83615; 83880; 83930; 84145; 84484; 85025; 85379; 86140; 93005; 96361; 99285; J7050; Q9967; U0002; 51702; 71250; 71250-26; 80048; 82550; 83735; 83935; 84100; 84300; 85007; 85027; 85610; 94640; 94660; 94760; 96374; 97110-GP; 97162-GP; 97166-GO; 97530-GO; 97530-GP; 99223; 99232; 99233; 99239; A9270-GY; J1100; J1650; J1940; J7030; J8540